=== PATIENT | male | born 1960 | race Caucasian/White ===

== ENCOUNTER 2020-05-23 12:36 | Emergency (ER) | payer OTHER ==
[2020-05-23] MEDS ORDERED: Zofran 4 MG/2 ML VIAL ONE (13:27)
[2020-05-23] MEDS ORDERED: SUBLIMAZE 100 MCG/2 ML ONE (13:28)
[2020-05-23] MEDS: SUBLIMAZE 100 MCG/2 ML IV ONE (13:30)
[2020-05-23] MEDS: Zofran 4 MG/2 ML VIAL IV ONE (13:30)
--- NOTE | 2020-05-23 13:57 | ERPHSYRPT ---
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 Pain is 5/10 and worse w movement/deep breaths. He denies SINGLETON/LOC/T&L-spine pain/UE pain/LE pain/hip pain. Pt denies any CP/dyspnea/focal weaknes before the fall. Occurred: other (6hrs) Reason for Fall: lost balance, slipped Injuries/Pain Location: chest (R thorax) Loss of Consciousness: no loss of consciousness Quality: sharpness Severity of Pain-Max: moderate Severity of Pain-Current: moderate Modifying Factors: Improves With: nothing Associated Symptoms (Fall): No abdominal pain, No back pain, No confusion, No dizziness, No extremity injury, No headache, No lightheadedness, No muscle spasms, No nausea, No neck pain, No ringing in ears, No seizures, No shortness of breath, No slurred speech, No trouble walking, No vomiting, No vision changes Allergies/Adverse Reactions: No Known Drug Allergies Allergy (Verified 05/23/20 12:50) Home Medications: Glyburide Micronized 3 mg [Glynase 3 MG] 6 mg PO BID 04/17/14 [History] Metformin HCl 850 mg [Glucophage 850 MG] 1,000 mg PO BID 04/17/14 [History] Sitagliptin Phosphate [Januvia] 50 mg PO DAILY 12/06/14 [History] Omeprazole [Prilosec] 40 mg PO BID 11/23/15 [History] Tamsulosin HCl [Flomax] 0.4 mg PO DAILY 11/23/15 [History] Doxycycline Hyclate 100 mg [Vibramycin 100 MG] 100 mg PO BID 05/23/20 [History] Ferrous Sulfate 325 mg [Feosol 325 mg] 325 mg PO BID 05/23/20 [History] Lisinopril 5 mg [Zestril 5 MG] 5 mg PO DAILY 05/23/20 [History] Saxagliptin HCl [Onglyza] 2.5 mg PO DAILY 05/23/20 [History] Hx Tetanus, Diphtheria Vaccination/Date Given: No Hx Influenza Vaccination/Date Given: (fall 2012) Hx Pneumococcal Vaccination/Date Given: No Travel Risk - International Travel Have you traveled outside of the country in past 3 weeks: No - Coronavirus Screening Are you exhibiting any of the following symptoms?: No Close contact with a COVID-19 positive Pt in past 14-21 Days: No - Review of Systems Constitutional: No Symptoms Eyes: No Symptoms Ears, Nose, & Throat: No Symptoms Respiratory: No Symptoms, Stridor Abdominal/Gastrointestinal: No Symptoms Genitourinary Symptoms: No Symptoms Skin: No Symptoms Neurological: No Symptoms Psychological: No Symptoms Endocrine: No Symptoms Hematologic/Lymphatic: No Symptoms Immunological/Allergic: No Symptoms - Past Medical History Pertinent Past Medical History: Yes Neurological History: No Pertinent History ENT History: No Pertinent History Cardiac History: No Pertinent History Respiratory History: No Pertinent History Endocrine Medical History: Diabetes Type II, Other Musculoskeletal History: Fractures GI Medical History: Cirrhosis, Hepatitis History: No Pertinent History Psycho-Social History: No Pertinent History Male Reproductive Disorders: No Pertinent History Other Medical History: "hole in a kidney", Hepititis C but has had vaccine. fell and broke back that didn't require surgery - Past Surgical History Past Surgical History: Yes Neuro Surgical History: No Pertinent History Cardiac: No Pertinent History Respiratory: No Pertinent History Gastrointestinal: No Pertinent History Genitourinary: No Pertinent History Musculoskeletal: No Pertinent History Male Surgical History: No Pertinent History Other Surgical History: liver biopsy - Social History Smoking Status: Never smoker Exposure to second hand smoke: No Drug Use: none Patient Lives Alone: No Significant Family History: no pertinent family hx - Nursing Vital Signs Nursing Vital Signs: Initial Vital Signs Temperature 98.3 F 05/23/20 12:40 Pulse Rate 73 05/23/20 12:40 Blood Pressure 143/89 05/23/20 12:40 O2 Sat by Pulse Oximetry 99 05/23/20 12:40 Pain Scale Pain Intensity 8 - [place] Coma Score Best Eye Response ([place]): (4) open spontaneously Best Verbal Response ([place]): (5) oriented Best Motor Response ([place]): (6) obeys commands J[place] Total: 15 - Physical Exam General Appearance: no apparent distress (In pain) Head Injury: no evidence of injury Eye Exam: PERRL/EOMI, eyes nml inspection ENT Exam: airway nml, No evidence of ENT injury Neck Exam: supple (C-spine NTTP), trachea midline, full range of motion, normal inspection Respiratory/Chest Exam: normal breath sounds, No respiratory distress (R thorax ttp) Cardiovascular Exam: normal heart sounds, regular rate/rhythm, normal peripheral pulses, No murmur Gastrointestinal Exam: soft, normal bowel sounds, No tenderness Back Exam: normal inspection (No T or L spine TTP) Extremity Exam: normal inspection, normal range of motion, pelvis stable Neurologic Exam: alert, oriented x 3, cooperative, staff engineer II-XII nml as tested, normal mood/affect, nml cerebellar function, nml station & gait, sensation nml, No motor deficits, No sensory deficit Skin Exam: normal color, warm, dry SpO2 Interpretation: normal SpO2: 99 O2 Delivery: Room Air Ordered Tests: Active Orders 24 hr Category Date Time Status EKG-ER Only STAT Care 05/23/20 13:14 Completed IV Insertion STAT Care 05/23/20 13:04 Completed CHEST WITH CONTRAST [CT] Stat Exams 05/23/20 14:32 Completed BMP Stat Lab 05/23/20 13:04 Completed Medication Summary Discontinued Medications Generic Name Dose Route Start Last Admin Trade Name Tobyq PRN Reason Stop Dose Admin Fentanyl Citrate 100 mcg 05/23/20 13:05 05/23/20 13:30 Sublimaze 100 Mcg/2 Ml IV 05/23/20 13:06 100 mcg STAT ONE Administration Fentanyl Citrate Confirm 05/23/20 13:28 Sublimaze 100 Mcg/2 Ml Administered 05/23/20 13:29 Dose 100 mcg .ROUTE .STK-MED ONE Hydromorphone HCl 1 mg 05/23/20 15:08 05/23/20 15:10 Hydromorphone 1 Mg/Ml Injection IV 05/23/20 15:09 1 mg STAT ONE Administration Hydromorphone HCl Confirm 05/23/20 15:09 Hydromorphone 1 Mg/Ml Injection Administered 05/23/20 15:10 Dose 1 mg .ROUTE .STK-MED ONE Ondansetron HCl 4 mg 05/23/20 13:06 05/23/20 13:30 Zofran 4 Mg/2 Ml Vial IV 05/23/20 13:07 4 mg STAT ONE Administration Ondansetron HCl Confirm 05/23/20 13:27 Zofran 4 Mg/2 Ml Vial Administered 05/23/20 13:28 Dose 4 mg .ROUTE .STK-MED ONE Lab/Rad Data: Laboratory Result Diagrams 05/23/20 13:04 Laboratory Results 05/23/20 Range/Units 13:04 Sodium 139 (137-145) mmol/L Potassium 5.0 (3.5-5.1) mmol/L Chloride 110 H (98-107) mmol/L Carbon Dioxide 24 (22-30) mmol/L Anion Gap 9.8 (5-15) MEQ/L BUN 17 (9-20) mg/dL Creatinine 1.28 H (0.66-1.25) mg/dL Estimated GFR > 60.0 ML/MIN Glucose 158 H (74-106) mg/dL Calcium 9.8 (8.4-10.2) mg/dL - Progress Progress: improved Progress Note: 05/23/20 15:09 Pain improved w 100umg IV Fentanyl/4mg IV Zofran 1mg IV dilaudid before discharge Counseled pt/family regarding: diagnosis, need for follow-up, rad results - Departure Departure Disposition: Home Clinical Impression: Rib fracture Condition: Stable Critical Care Time: No Referrals: IAN CHRISTENSEN [Primary Care Provider] - Instructions: Rib Fracture (DC) Additional Instructions: Follow up with family MD or company MD Pain meds as needed Return to ER for increasing pain/shortness of breath/temperature greater than 100.5 Prescriptions: Hydrocodone Bit/Acetaminophen [[place] 10-325 Tablet] 1 each PO Q4H PRN PRN #10 tablet PRN Reason: Pain
[2020-05-23 14:08] LABS: ANION GAP 9.8 MEQ/L (5-15); BLOOD UREA NITROGEN 17 mg/dL (9-20); CHLORIDE 110 mmol/L (98-107); Calcium 9.8 mg/dL (8.4-10.2); Carbon Dioxide 24 mmol/L (22-30); Creatinine 1 1.28 mg/dL (0.66-1.25); EST GLOMERULAR FILTRATION RATE > 60.0 ML/MIN; Glucose 158 mg/dL (74-106); SODIUM 139 mmol/L (137-145)
--- NOTE | 2020-05-23 15:03 | XRAY ---
Indication: Right rib pain following fall. Multiple contiguous axial images obtained through the chest using 80 cc Isovue 370 contrast. Comparison: None Lungs inflated with minimal bilateral dependent atelectasis and small right lower lobe calcified granuloma. No suspicious pulmonary mass, infiltrate, or effusion. Heart is not enlarged. Aorta is normal in course and caliber. Small right hilar calcified node. No pathologic mediastinal/hilar lymphadenopathy. Mid to distal esophagus demonstrates moderate circumferential wall thickening favoring esophagitis. Bony thorax demonstrates acute cortical fracture anterior right 6 rib. Elsewhere mild osteopenia and mild/moderate degenerative changes throughout the visualized spine. Remote appearing superior endplate fractures of T12/L2 with 25-50% height loss. Old right 8/9 anterior rib fractures. Limited upper abdomen demonstrates markedly cirrhotic liver and 17.4 cm splenomegaly. Impression: 1. Mid to distal esophageal circumferential wall thickening favoring esophagitis. 2. Right 6 rib cortical fracture. 3. Osteopenia, remote T12/L2 endplate fractures, and remote right 8/9 rib fractures. 4. Incidental cirrhosis, splenomegaly, and old granulomatous disease
[2020-05-23] MEDS ORDERED: Hydromorphone 1 mg/ml Injection ONE (15:09)
[2020-05-23] MEDS: Hydromorphone 1 mg/ml Injection IV ONE (15:10)
[2020-05-23 15:26] VITALS: BP 122/78; PULSE 66
[2020-05-23 17:55] VITALS: O2SAT 99
== END 2020-05-23 15:43 | disposition home or self-care (01) ==
LOC: ED 12:36
DX: S22.39XA Fracture of one rib, unspecified side, initial encounter for closed fracture (principal); W01.198A Fall on same level from slipping, tripping and stumbling with subsequent striking against other object, initial encounter; Y92.89 Other specified places as the place of occurrence of the external cause; Y93.89 Activity, other specified; Z79.899 Other long term (current) drug therapy; E11.9 Type 2 diabetes mellitus without complications; Z79.4 Long term (current) use of insulin; K74.60 Unspecified cirrhosis of liver; B19.20 Unspecified viral hepatitis C without hepatic coma
CPT/HCPCS: 36000; 36415; 71260; 80048; 93005; 96374; 96375; 99284; J1170; J2405; J3010

== ENCOUNTER 2021-06-02 17:03 | Emergency (ER) | payer BC ==
[2021-06-02] MEDS ORDERED: ROCEPHIN 1 Gm-D5w 50 ml Bag** 1 G/50 ML IVPB IV STA (17:44)
[2021-06-02] MEDS ORDERED: CLINDAMYCIN-D5W 900 MG/50 ML*** 900 MG/50 ML BAG IV STA (17:44)
[2021-06-02] MEDS ORDERED: CLINDAMYCIN-D5W 900 MG/50 ML*** 900 MG/50 ML BAG IV ONE (18:02)
[2021-06-02] MEDS ORDERED: ROCEPHIN 1 Gm-D5w 50 ml Bag** 1 G/50 ML IVPB IV ONE (18:02)
--- NOTE | 2021-06-02 18:27 | ERPHSYRPT ---
- History of Present Illness Time Seen by Provider: 06/02/21 17:40 Source: patient Exam Limitations: no limitations Patient Subjective Stated Complaint: pt here infection to left index finger, states he has a splinter in finger for 2 weeks Triage Nursing Assessment: pt alert, resp easy, skin w/d/p. face mask in place, has swelling reddness, drainage to left index finger Physician History: Patient is a 60-year-old white male who had a splinter lodged in his left index finger approximately 2 2 and half weeks ago. He thought that he got it removed however he has had increased swelling pain and drainage from the finger which seems to localize over the M PJ. He has had no antibiotics and has not had a medical treatment. Occurred: days ago (14) Method of Injury: incised Quality: constant Severity of Pain-Max: moderate Severity of Pain-Current: moderate Extremities Pain Location: 2nd finger: left (Swelling discoloration purulent discharge) Modifying Factors: Improves With: movement Associated Symptoms: none Allergies/Adverse Reactions: No Known Drug Allergies Allergy (Verified 06/02/21 17:20) Home Medications: Glyburide Micronized 3 mg [Glynase 3 MG] 6 mg PO BID 04/17/14 [History] Metformin HCl 850 mg [Glucophage 850 MG] 1,000 mg PO BID 04/17/14 [History] Sitagliptin Phosphate [Januvia] 50 mg PO DAILY 12/06/14 [History] Omeprazole [Prilosec] 40 mg PO BID 11/23/15 [History] Tamsulosin HCl [Flomax] 0.4 mg PO DAILY 11/23/15 [History] Doxycycline Hyclate 100 mg [Vibramycin 100 MG] 100 mg PO BID 05/23/20 [History] Ferrous Sulfate 325 mg [Feosol 325 mg] 325 mg PO BID 05/23/20 [History] Lisinopril 5 mg [Zestril 5 MG] 5 mg PO DAILY 05/23/20 [History] Saxagliptin HCl [Onglyza] 2.5 mg PO DAILY 05/23/20 [History] Hx Tetanus, Diphtheria Vaccination/Date Given: No Hx Influenza Vaccination/Date Given: No (fall 2012) Hx Pneumococcal Vaccination/Date Given: No Immunizations Up to Date: Yes Travel Risk - International Travel Have you traveled outside of the country in past 3 weeks: No - Coronavirus Screening Are you exhibiting any of the following symptoms?: No Close contact with a COVID-19 positive Pt in past 14-21 Days: No - Vaccine Status Have you recieved a Covid-19 vaccination: No - Review of Systems Constitutional: No Fever, No Chills Eyes: No Symptoms Ears, Nose, & Throat: No Symptoms Respiratory: No Cough, No Dyspnea Cardiac: No Chest Pain, No Edema, No Syncope Abdominal/Gastrointestinal: No Abdominal Pain, No Nausea, No Vomiting, No Diarrhea Genitourinary Symptoms: No Dysuria Musculoskeletal: Joint Redness, Joint Pain, Joint Swelling, No Back Pain, No Neck Pain Skin: No Rash Neurological: No Dizziness, No Focal Weakness, No Sensory Changes Psychological: No Symptoms Endocrine: No Symptoms All Other Systems: Reviewed and Negative - Past Medical History Pertinent Past Medical History: Yes Neurological History: No Pertinent History ENT History: No Pertinent History Cardiac History: No Pertinent History Respiratory History: No Pertinent History Endocrine Medical History: Diabetes Type II, Other Musculoskeletal History: Fractures GI Medical History: Cirrhosis, Hepatitis History: No Pertinent History Psycho-Social History: No Pertinent History Male Reproductive Disorders: No Pertinent History Other Medical History: "hole in a kidney", Hepititis C but has had vaccine. fell and broke back that didn't require surgery - Past Surgical History Past Surgical History: Yes Neuro Surgical History: No Pertinent History Cardiac: No Pertinent History Respiratory: No Pertinent History Gastrointestinal: No Pertinent History Genitourinary: No Pertinent History Musculoskeletal: No Pertinent History Male Surgical History: No Pertinent History Other Surgical History: liver biopsy - Social History Smoking Status: Never smoker Exposure to second hand smoke: No Drug Use: none Patient Lives Alone: No Significant Family History: no pertinent family hx - Nursing Vital Signs Nursing Vital Signs: Initial Vital Signs Temperature 98.8 F 06/02/21 17:19 Pulse Rate 94 H 06/02/21 17:19 Respiratory Rate 18 06/02/21 17:19 Blood Pressure 139/73 06/02/21 17:19 O2 Sat by Pulse Oximetry 98 06/02/21 17:19 Pain Scale Pain Intensity 7 - Physical Exam General Appearance: mild distress, alert Eyes, Ears, Nose, Throat Exam: moist mucous membranes Neck Exam: non-tender, supple Cardiovascular/Respiratory Exam: chest non-tender, normal breath sounds, regular rate/rhythm, no respiratory distress Abdominal Exam: non-tender, No guarding Back Exam: normal inspection, No vertebral tenderness Shoulder Exam: normal inspection, non-tender Elbow/Forearm Exam: normal inspection, non-tender Wrist Exam: normal inspection, non-tender Hand Exam: bone tenderness (Left index finger tenderness), infection, limited ROM, soft tissue tenderness (Limited range of motion soft tissue tenderness), stiffness, swelling (Stiffness and swelling) Neuro/Tendon Exam: normal sensation, normal motor functions Mental Status Exam: alert, oriented x 3, cooperative Skin Exam: normal color, warm, dry SpO2 Interpretation: normal SpO2: 98 O2 Delivery: Room Air - Course Nursing assessment & vital signs reviewed: Yes - Radiology Exams Hand X-ray Interpretation: Interpreted by me, Negative (Negative for any foreign bodies near the affected digit no fracture no gas noted in the soft tissues) Ordered Tests: Active Orders 24 hr Category Date Time Status HAND (MINIMUM 3 VIEWS) Stat Exams 06/02/21 17:43 Taken Medication Summary Discontinued Medications Generic Name Dose Route Start Last Admin Trade Name Tobyq PRN Reason Stop Dose Admin Ceftriaxone Sodium/Dextrose 1 g in 50 mls @ 100 mls/hr 06/02/21 17:44 06/02/21 18:58 Rocephin 1 Gm-D5w 50 Ml Bag IV 06/02/21 18:13 Infused STAT STA Infusion Clindamycin HCl/Dextrose 900 mg in 50 mls @ 100 mls/hr 06/02/21 17:44 06/02/21 18:57 Clindamycin-D5w 900 Mg/50 Ml IV 06/02/21 18:13 Infused STAT STA Infusion Clindamycin HCl/Dextrose Confirm 06/02/21 18:02 Clindamycin-D5w 900 Mg/50 Ml Administered 06/02/21 18:03 Dose 900 mg in 50 mls @ ud IV .STK-MED ONE Ceftriaxone Sodium/Dextrose Confirm 06/02/21 18:02 Rocephin 1 Gm-D5w 50 Ml Bag Administered 06/02/21 18:03 Dose 1 g in 50 mls @ ud IV .STK-MED ONE - Progress Progress: improved Discussed with : Other (Dr. Toribio hand surgeon in [place] was consulted he will see the patient Saturday morning in the office) - Departure Departure Disposition: Home Clinical Impression: Tenosynovitis of finger Condition: Stable Critical Care Time: No Referrals: IAN CHRISTENSEN [Primary Care Provider] - Instructions: Tenosynovitis (DC) Prescriptions: Cefdinir 300 mg PO BID 7 Days #14 cap clindamycin HCL [Cleocin HCl] 300 mg PO TID 7 Days #21
[2021-06-02 19:28] VITALS: BP 117/73; PULSE 91; O2SAT 100
--- NOTE | 2021-06-02 22:16 | XRAY ---
Indication: Splinter in 2nd finger. Comparison: None 3 view left hand demonstrates 2 mm soft tissue foreign body distal 4th finger, mild osteopenia, and old distal radius fracture. No other bony, articular, or soft tissue abnormalities.
== END 2021-06-02 19:44 | disposition home or self-care (01) ==
LOC: ED 17:03
DX: S63.651A Sprain of metacarpophalangeal joint of left index finger, initial encounter (principal)
CPT/HCPCS: 36000; 73130; 96365; 96368; 99284; J0696

== ENCOUNTER 2022-02-23 10:15 | Emergency (ER) | payer OTHER ==
[2022-02-23 10:31] VITALS: BP 134/84
[2022-02-23] MEDS ORDERED: Flagyl 500 MG PO ONE (11:09)
[2022-02-23] MEDS ORDERED: OXYCODONE-ACETAMINOPHEN 10-325 PO STA (11:09)
[2022-02-23] MEDS ORDERED: Vibramycin 100 MG PO ONE (11:09)
[2022-02-23] MEDS ORDERED: Vibramycin 100 MG ONE (11:17)
[2022-02-23] MEDS ORDERED: Flagyl 500 MG ONE (11:17)
[2022-02-23] MEDS ORDERED: OXYCODONE-ACETAMINOPHEN 10-325 ONE (11:17)
--- NOTE | 2022-02-23 11:17 | ERPHSYRPT ---
- History of Present Illness Time Seen by Provider: 02/23/22 10:30 Source: patient, family Exam Limitations: no limitations Patient Subjective Stated Complaint: Groin pain/swelling Triage Nursing Assessment: Patient ambulated back to ED and transferred self to bed. Patient A+O X 3. Patient's skin pink, warm and dry. Patient complains of pain to left scrotum. Patient has abscess noted to left scrotum. Patient complain of pain 06/04. 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 Physician History: This is a 61-year-old diabetic white male patient of Dr. 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 He denies fevers. He states he is not had anything like this in the past. Patient has a history of diabetes, hypertension, gastroesophageal reflux disease, and prostate issues. This was the first day he could have the site evaluated. There has been some drainage from the site. Timing/Duration: day(s) (3) Quality: painful Severity: moderate (When palpated) Location: genitalia (Left scrotal region) Possible Causes: other (Abscess) Associated Symptoms: denies symptoms Allergies/Adverse Reactions: No Known Drug Allergies Allergy (Verified 02/23/22 10:20) Home Medications: Glyburide Micronized [Glynase 3 MG] 6 mg PO BID 04/17/14 [History] Metformin HCl 850 mg [Glucophage 850 MG] 1,000 mg PO BID 04/17/14 [History] Sitagliptin Phosphate [Januvia] 50 mg PO DAILY 12/06/14 [History] Omeprazole [Prilosec] 40 mg PO BID 11/23/15 [History] Tamsulosin HCl [Flomax] 0.4 mg PO DAILY 11/23/15 [History] Doxycycline Hyclate 100 mg [Vibramycin 100 MG] 100 mg PO BID 05/23/20 [History] Ferrous Sulfate 325 mg [Feosol 325 mg] 325 mg PO BID 05/23/20 [History] Lisinopril 5 mg [Zestril 5 MG] 5 mg PO DAILY 05/23/20 [History] Saxagliptin HCl [Onglyza] 2.5 mg PO DAILY 05/23/20 [History] Hx Tetanus, Diphtheria Vaccination/Date Given: No Hx Influenza Vaccination/Date Given: No Hx Pneumococcal Vaccination/Date Given: No Immunizations Up to Date: Yes Travel Risk - International Travel Have you traveled outside of the country in past 3 weeks: No - Coronavirus Screening Are you exhibiting any of the following symptoms?: No Close contact with a COVID-19 positive Pt in past 14-21 Days: No - Vaccine Status Have you recieved a Covid-19 vaccination: No - Review of Systems Constitutional: No Symptoms Eyes: No Symptoms Ears, Nose, & Throat: No Symptoms Respiratory: No Symptoms Cardiac: No Symptoms Abdominal/Gastrointestinal: No Symptoms Genitourinary Symptoms: Other (Left scrotal abscess) Musculoskeletal: No Symptoms Skin: Other (Left scrotal abscess) Neurological: No Symptoms Psychological: No Symptoms Endocrine: No Symptoms Hematologic/Lymphatic: No Symptoms Immunological/Allergic: No Symptoms All Other Systems: Reviewed and Negative - Past Medical History Pertinent Past Medical History: Yes Neurological History: No Pertinent History ENT History: No Pertinent History Cardiac History: No Pertinent History Respiratory History: No Pertinent History Endocrine Medical History: Diabetes Type II Musculoskeletal History: Fractures GI Medical History: Cirrhosis, Hepatitis History: No Pertinent History Psycho-Social History: No Pertinent History Male Reproductive Disorders: No Pertinent History Other Medical History: "hole in a kidney", Hepititis C but has had vaccine. fell and broke back that didn't require surgery - Past Surgical History Past Surgical History: Yes Neuro Surgical History: No Pertinent History Cardiac: No Pertinent History Respiratory: No Pertinent History Gastrointestinal: No Pertinent History Genitourinary: No Pertinent History Musculoskeletal: No Pertinent History Male Surgical History: No Pertinent History Other Surgical History: liver biopsy - Social History Smoking Status: Never smoker Exposure to second hand smoke: No Drug Use: none Patient Lives Alone: No Significant Family History: no pertinent family hx - Nursing Vital Signs Nursing Vital Signs: Initial Vital Signs Temperature 98.0 F 02/23/22 10:21 Pulse Rate 92 H 02/23/22 10:21 Respiratory Rate 18 02/23/22 10:21 Blood Pressure 134/84 02/23/22 10:21 O2 Sat by Pulse Oximetry 97 02/23/22 10:21 Pain Scale Pain Intensity 10 - Physical Exam General Appearance: no apparent distress, alert, anxiety, obese Eye Exam: PERRL/EOMI, eyes nml inspection Ears, Nose, Throat Exam: normal ENT inspection, moist mucous membranes Neck Exam: normal inspection, non-tender, supple, full range of motion Respiratory Exam: airway intact, No chest tenderness, No respiratory distress Gastrointestinal/Abdomen Exam: No tenderness Male Genitalia Exam: other (Abscess measuring approximately 2 cm in its axial dimension and 1 cm in its transverse direction. There is a pinpoint opening with drainage present. This is an abscess. 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 There was pus exuding from the site as well as pus that was expressible. Culture was obtained and sent to lab. I continue to express as much pus out as I could until there was no more pus present. There is still indurated tissue present. The area was then cleaned dried and a bandage was placed loosely overlying this open site. Patient Toller procedure well and there were no complications. - Course Nursing assessment & vital signs reviewed: Yes Ordered Tests: Medication Summary Generic Name Dose Route Start Last Admin Trade Name Freq PRN Reason Stop Dose Admin Doxycycline Hyclate 100 mg 02/23/22 11:09 Doxycycline Hyclate 100 Mg Tablet PO 02/23/22 11:10 STAT ONE Metronidazole 500 mg 02/23/22 11:09 Metronidazole 500 Mg Tablet PO 02/23/22 11:10 STAT ONE Oxycodone/Acetaminophen 1 tab 02/23/22 11:09 Oxycodone / [place] 10/325 Mg 1 Tablet PO 02/23/22 11:10 STAT STA - Progress Progress: improved, pain not gone completely Counseled pt/family regarding: diagnosis, need for follow-up - Departure Departure Disposition: Home Clinical Impression: Abscess of scrotal wall Condition: Stable Critical Care Time: No Referrals: IAN LUTZ [Primary Care Provider] - Follow up/PCP as directed Additional Instructions: Keep the area clean and dry. Do not use ointments to the site. Sitz bath with warm soapy water or warm [place] salt water at least twice a day. Keep the wound open and express out any fluid at each sitz bath session. May cover the incision site with a peripad as needed. Return to the emergency department if symptoms worsen. Follow-up with your primary care physician next week for reevaluation. Take your medication as prescribed. Prescriptions: Oxycodone HCl/Acetaminophen [Percocet 5-325 mg Tablet] 1 each PO Q8H PRN PRN #8 tablet MDD 3 PRN Reason: Moderate To Severe Pain Metronidazole 500 mg [Flagyl 500 MG] 500 mg PO TID #21 tablet Doxycycline Hyclate 100 mg [Vibramycin 100 MG] 100 mg PO BID #14 tab
[2022-02-23 11:51] VITALS: PULSE 80; O2SAT 96
== END 2022-02-23 11:51 | disposition home or self-care (01) ==
LOC: ED 10:15
DX: N49.2 Inflammatory disorders of scrotum (principal); N50.82 Scrotal pain; E11.9 Type 2 diabetes mellitus without complications; I10 Essential (primary) hypertension; Z79.84 Long term (current) use of oral hypoglycemic drugs; Z79.891 Long term (current) use of opiate analgesic; Z79.899 Other long term (current) drug therapy; Z28.310 Unvaccinated for COVID-19
CPT/HCPCS: 55100; 87070; 87077; 87186; 99283; A9270-GY

== ENCOUNTER 2022-05-21 09:39 | Inpatient (IN) | payer OTHER ==
--- NOTE | 2022-05-21 09:59 | ERPHSYRPT ---
- History of Present Illness Time Seen by Provider: 05/21/22 09:58 Source: patient Exam Limitations: no limitations Physician History: This is a diabetic 61-year-old white male patient of Dr. Fleming who sent this patient to the emergency department after persistent redness swelling and warmth of his right lower extremity. Symptoms been present for approximately 1 week. Patient has been followed by Dr. Fleming is closely in his office and on 05/18 and 05/19 received injection double antibiotics and also, patient has been taking Bactrim DS orally. Despite outpatient therapy, the patient's symptoms have worsened and therefore patient was sent to the emergency department for further evaluation management and admission into the hospital. Patient underwent a right lower extremity venous Doppler on 05/17/2022 and this was negative for deep venous thrombosis. Patient has a history of cirrhosis, hepatitis C, hypertension and gastroesophageal reflux disease. Timing/Duration: week(s) (1) Quality: painful Severity: moderate Location: extremities (Right lower extremity below the knee) Possible Causes: other Associated Symptoms: denies symptoms Allergies/Adverse Reactions: No Known Drug Allergies Allergy (Verified 02/23/22 10:20) Home Medications: Insulin Glargine,Hum.rec.anlog [Basaglar Kwikpen U-100] 40 unit SQ DAILY 05/21/22 [History] Insulin Lispro [Humalog] 20 unit SQ AC 05/21/22 [History] Hx Tetanus, Diphtheria Vaccination/Date Given: No Hx Influenza Vaccination/Date Given: No Hx Pneumococcal Vaccination/Date Given: No Travel Risk - International Travel Have you traveled outside of the country in past 3 weeks: No - Coronavirus Screening Are you exhibiting any of the following symptoms?: No Close contact with a COVID-19 positive Pt in past 14-21 Days: No - Vaccine Status Have you recieved a Covid-19 vaccination: No - Review of Systems Constitutional: No Symptoms, No Fever Eyes: No Symptoms Ears, Nose, & Throat: No Symptoms Respiratory: No Symptoms Cardiac: No Symptoms Abdominal/Gastrointestinal: No Symptoms Genitourinary Symptoms: No Symptoms Musculoskeletal: Other (Tender below right knee) Skin: Cellulitis (Tender below right knee) Neurological: No Symptoms Psychological: No Symptoms Endocrine: No Symptoms Hematologic/Lymphatic: No Symptoms Immunological/Allergic: No Symptoms All Other Systems: Reviewed and Negative - Past Medical History Pertinent Past Medical History: Yes Neurological History: No Pertinent History ENT History: No Pertinent History Cardiac History: No Pertinent History Respiratory History: No Pertinent History Endocrine Medical History: Diabetes Type II Musculoskeletal History: Fractures GI Medical History: Cirrhosis, Hepatitis History: No Pertinent History Psycho-Social History: No Pertinent History Male Reproductive Disorders: No Pertinent History Other Medical History: "hole in a kidney", Hepititis C but has had vaccine. fell and broke back that didn't require surgery - Past Surgical History Past Surgical History: Yes Neuro Surgical History: No Pertinent History Cardiac: No Pertinent History Respiratory: No Pertinent History Gastrointestinal: No Pertinent History Genitourinary: No Pertinent History Musculoskeletal: No Pertinent History Male Surgical History: No Pertinent History Other Surgical History: liver biopsy - Social History Smoking Status: Never smoker Exposure to second hand smoke: No Drug Use: none Patient Lives Alone: No Significant Family History: no pertinent family hx - Nursing Vital Signs Nursing Vital Signs: Initial Vital Signs Temperature 97.4 F 05/21/22 09:50 Pulse Rate 81 05/21/22 09:50 Respiratory Rate 18 05/21/22 09:50 Blood Pressure 120/73 05/21/22 09:50 O2 Sat by Pulse Oximetry 99 05/21/22 09:50 Pain Scale Pain Intensity 0 - Physical Exam General Appearance: no apparent distress, alert Eye Exam: PERRL/EOMI, eyes nml inspection Ears, Nose, Throat Exam: normal ENT inspection, moist mucous membranes Neck Exam: normal inspection, non-tender, supple, full range of motion Respiratory Exam: normal breath sounds, lungs clear, airway intact, No chest tenderness, No respiratory distress Cardiovascular Exam: regular rate/rhythm, normal heart sounds, normal peripheral pulses Gastrointestinal/Abdomen Exam: soft, normal bowel sounds, No tenderness Rectal Exam: not done Back Exam: normal inspection, normal range of motion, No CVA tenderness, No vertebral tenderness Extremity Exam: normal inspection, normal range of motion, pelvis stable, tenderness (Below the right knee tender swelling areas around the open chronic venous stasis wounds that have granulation tissue present. There is pain in these areas and in the calf area. Patient has bilateral lower extremity chronic venous stasis disease.) Neurologic Exam: alert, oriented x 3, cooperative, i o psychologist II-XII nml as tested, normal mood/affect, nml cerebellar function, nml station & gait, sensation nml Skin Exam: other (Chronic venous stasis disease bilateral lower extremities with ulcerations in the right lower extremity and cellulitis in the right lower extremity below the knee) Lymphatic Exam: No adenopathy SpO2 Interpretation: normal SpO2: 99 O2 Delivery: Room Air Ordered Tests: Active Orders 24 hr Category Date Time Status IV Insertion STAT Care 05/21/22 10:12 Active Wound Care STAT Care 05/21/22 10:13 Active BLOOD CULTURE Stat Lab 05/21/22 10:10 Received CBC W DIFF Stat Lab 05/21/22 10:10 Completed CMP Stat Lab 05/21/22 10:10 Completed CULTURE,WOUND Stat Lab 05/21/22 10:18 Received Lactic Acid Stat Lab 05/21/22 10:42 Completed Transfer Order Routine Transfer 05/21/22 Ordered Lab/Rad Data: Laboratory Result Diagrams 05/21/22 10:10 05/21/22 10:10 Laboratory Results 05/21/22 05/21/22 05/21/22 Range/Units 10:42 10:35 10:10 WBC (4.0-10.5) x10^3/uL RBC (4.1-5.6) x10^6/uL Hgb (12.5-18.0) g/dL Hct (42-50) % MCV (78-100) fL MCH (26-32) pg MCHC (32-36) g/dL RDW (11.5-14.0) % Plt Count (150-450) x10^3/uL MPV (7.5-11.0) fL Gran % (36.0-66.0) % Immature Gran % (Auto) (0.00-0.4) % Nucleat RBC Rel Count (0.00-0.1) % Eos # (Auto) (0-0.5) x10^3/uL Immature Gran # (Auto) (0.00-0.03) x10^3u/L Absolute Lymphs (auto) (1.0-4.6) x10^3/uL Absolute Monos (auto) (0.0-1.3) x10^3/uL Absolute Nucleated RBC (0.00-0.01) x10^3u/L Lymphocytes % (24.0-44.0) % Monocytes % (0.0-12.0) % Eosinophils % (0.00-5.0) % Basophils % (0.0-0.4) % Absolute Granulocytes (1.4-6.9) x10^3/uL Basophils # (0-0.4) x10^3/uL Sodium 138 (137-145) mmol/L Potassium 4.5 (3.5-5.1) mmol/L Chloride 110 H (98-107) mmol/L Carbon Dioxide 18 L (22-30) mmol/L Anion Gap 14.9 (5-15) MEQ/L BUN 22 H (9-20) mg/dL Creatinine 2.26 H (0.66-1.25) mg/dL Estimated GFR 31.4 ML/MIN Glucose 174 H (74-106) mg/dL Lactic Acid 1.8 (0.4-2.0) Calcium 8.4 (8.4-10.2) mg/dL Total Bilirubin 1.20 (0.2-1.3) mg/dL AST 47 (17-59) U/L ALT 30 (0-50) U/L Alkaline Phosphatase 322 H (38-126) U/L Serum Total Protein 7.5 (6.3-8.2) g/dL Albumin 3.1 L (3.5-5.0) g/dL Influenza Type A Ag NEGATIVE (NEGATIVE) Influenza Type B Ag NEGATIVE (NEGATIVE) RSV (PCR) NEGATIVE (Negative) SARS-CoV-2 (PCR) NEGATIVE (NEGATIVE) 05/21/22 Range/Units 10:10 WBC 5.6 (4.0-10.5) x10^3/uL RBC 3.57 L (4.1-5.6) x10^6/uL Hgb 10.8 L (12.5-18.0) g/dL Hct 33.6 L (42-50) % MCV 94.1 (78-100) fL MCH 30.3 (26-32) pg MCHC 32.1 (32-36) g/dL RDW 13.0 (11.5-14.0) % Plt Count 102 L (150-450) x10^3/uL MPV 10.9 (7.5-11.0) fL Gran % 74.9 H (36.0-66.0) % Immature Gran % (Auto) 0.2 (0.00-0.4) % Nucleat RBC Rel Count 0.0 (0.00-0.1) % Eos # (Auto) 0.09 (0-0.5) x10^3/uL Immature Gran # (Auto) 0.01 (0.00-0.03) x10^3u/L Absolute Lymphs (auto) 0.66 L (1.0-4.6) x10^3/uL Absolute Monos (auto) 0.62 (0.0-1.3) x10^3/uL Absolute Nucleated RBC 0.00 (0.00-0.01) x10^3u/L Lymphocytes % 11.8 L (24.0-44.0) % Monocytes % 11.1 (0.0-12.0) % Eosinophils % 1.6 (0.00-5.0) % Basophils % 0.4 (0.0-0.4) % Absolute Granulocytes 4.19 (1.4-6.9) x10^3/uL Basophils # 0.02 (0-0.4) x10^3/uL Sodium (137-145) mmol/L Potassium (3.5-5.1) mmol/L Chloride (98-107) mmol/L Carbon Dioxide (22-30) mmol/L Anion Gap (5-15) MEQ/L BUN (9-20) mg/dL Creatinine (0.66-1.25) mg/dL Estimated GFR ML/MIN Glucose (74-106) mg/dL Lactic Acid (0.4-2.0) Calcium (8.4-10.2) mg/dL Total Bilirubin (0.2-1.3) mg/dL AST (17-59) U/L ALT (0-50) U/L Alkaline Phosphatase (38-126) U/L Serum Total Protein (6.3-8.2) g/dL Albumin (3.5-5.0) g/dL Influenza Type A Ag (NEGATIVE) Influenza Type B Ag (NEGATIVE) RSV (PCR) (Negative) SARS-CoV-2 (PCR) (NEGATIVE) - Progress Progress Note: 05/21/22 11:51 Medical decision making: This patient has cellulitis and drainage from chronic venous stasis ulcers. He has failed outpatient antibiotic therapy. We will bring him into the hospital and provide him with intravenous antibiotics as well as a consultation by manager strategic development Dr. Donald. We will also provide a sliding scale insulin regimen for him. We will repeat labs. I spoke with Dr. Sandoval and she agrees with this plan. Discussed with : Maryjane - Departure Departure Disposition: In-patient Admission Clinical Impression: Cellulitis Condition: Stable Critical Care Time: No Referrals: IAN CHRISTENSEN [Primary Care Provider] - Follow up/PCP as directed
[2022-05-21 10:50] LABS: Absolute Neutrophil Ct (ANC) 4.19 x10^3/uL (1.4-6.9); Basophil (Absolute #) 0.02 x10^3/uL (0-0.4); Eosinophil % 1.6 % (0.00-5.0); Eosinophil (Absolute #) 0.09 x10^3/uL (0-0.5); Hematocrit 33.6 % (42-50); Hemoglobin 10.8 g/dL (12.5-18.0); Lymphocyte (Absolute #) 0.66 x10^3/uL (1.0-4.6); Lymphocytes % 11.8 % (24.0-44.0); Mean Cell Volume 94.1 fL (78-100); Mean Corpuscular Hemoglobin 30.3 pg (26-32); Mean Corpuscular Hgb Concent. 32.1 g/dL (32-36); Mean Platelet Volume 10.9 fL (7.5-11.0); Monocyte (Absolute #) 0.62 x10^3/uL (0.0-1.3); Monocytes % 11.1 % (0.0-12.0); Neutrophil % 74.9 % (36.0-66.0); Platelet Count 102 x10^3/uL (150-450); Red Blood Count 3.57 x10^6/uL (4.1-5.6); White Blood Count 5.6 x10^3/uL (4.0-10.5)
[2022-05-21 11:25] LABS: ALBUMIN 3.1 g/dL (3.5-5.0); ANION GAP 14.9 MEQ/L (5-15); BILIRUBIN,TOTAL 1.2 mg/dL (0.2-1.3); Calcium 8.4 mg/dL (8.4-10.2); Creatinine 1 2.26 mg/dL (0.66-1.25); EST GLOMERULAR FILTRATION RATE 31.4 ML/MIN; Potassium 4.5 mmol/L (3.5-5.1); Total Protein 7.5 g/dL (6.3-8.2)
[2022-05-21 11:28] LABS: INFLUENZA A NEGATIVE (NEGATIVE); INFLUENZA B NEGATIVE (NEGATIVE); RESPIRATORY SYNCTIAL VIRUS NEGATIVE (Negative); SARS-CoV-2 Xpert Express NEGATIVE (NEGATIVE)
[2022-05-21] MEDS ORDERED: TYLENOL 325 MG PO PRN (13:30)
[2022-05-21] MEDS ORDERED: Zofran 4 MG/2 ML VIAL IV PRN (13:30)
[2022-05-21] MEDS ORDERED: HUMULIN R SQ PRN (13:30)
[2022-05-21] MEDS: MORPHINE SULFATE 4 MG INJ IV PRN ×2 (13:44→19:15)
[2022-05-21] MEDS: CLINDAMYCIN-D5W 600 MG/50 ML*** 600 MG/50 ML BAG IV SCH ×2 (13:45→21:37)
[2022-05-21] MEDS: Sodium Chloride 0.9% 1000 ML 1,000 ML IV SCH (13:46)
[2022-05-21 14:48] LABS: Hematocrit 33.1 % (42-50); Hemoglobin 10.7 g/dL (12.5-18.0); Mean Cell Volume 94.6 fL (78-100); Mean Corpuscular Hemoglobin 30.6 pg (26-32); Mean Corpuscular Hgb Concent. 32.3 g/dL (32-36); Mean Platelet Volume 9.9 fL (7.5-11.0); Platelet Count 94 x10^3/uL (150-450); Red Cell Distribution Width 13.1 % (11.5-14.0); White Blood Count 4.6 x10^3/uL (4.0-10.5)
[2022-05-21 15:13] LABS: Calcium 8.1 mg/dL (8.4-10.2); Creatinine 1 2.07 mg/dL (0.66-1.25); EST GLOMERULAR FILTRATION RATE 34.8 ML/MIN; PREALBUMIN 4.96 mg/dL (17.6-36.0); Potassium 4.3 mmol/L (3.5-5.1)
[2022-05-21 15:20] LABS: Slide Review YES
[2022-05-21] MEDS: Levofloxacin 500MG/100ML D5W 500 MG/100 ML BAG IV SCH (16:00)
[2022-05-21] MEDS ORDERED: NON-FORMULARY ITEM (Insulin Lispro 1 UNIT Ml) SQ SCH (16:30)
--- NOTE | 2022-05-21 16:50 | PCM.CONS ---
Podiatry HPI - Consult Date of Consultation Date: 05/21/22 Reason for Consult: Venous insuffiecny ulcers b/l Consulting Provider: ANDIE ROSE DPM - [facility] History of Present Illness: Mika is a very pleasant 61 year old male with positive hx of HTN, Hepatitis C, DM II, GERD who presents today with exacerbation of cellulitis to the right lower extremity after battling a longstanding history of chronic venous insufficiency and ulceration. Patient's symptomatology has been present for over a week at this time. He has been seen by his primary care and failed outpatient antibiotics. At this time symptoms have worsened. Doppler was obtained on May 17 demonstrating negative for DVT. He denies any constitutional symptoms of infection. He denies any other pedal complaints at this time Medications & Allergies Home Medications: Home Medication List Insulin Glargine,Hum.rec.anlog [Basaglar Kwikpen U-100] 40 unit SQ DAILY 05/21/22 [History Confirmed 05/21/22] Insulin Lispro [Humalog] 20 unit SQ AC 05/21/22 [History Confirmed 05/21/22] Allergies/Adverse Reactions: Allergies Allergy/AdvReac Type Severity Reaction Status Date / Time No Known Drug Allergies Allergy Verified 05/21/22 14:32 - Past Medical History Past Medical History: Yes Neurological History: No Pertinent History ENT History: No Pertinent History Cardiac History: No Pertinent History Respiratory History: No Pertinent History Endocrine Medical History: Diabetes Type II Musculoskelatal History: Fractures GI Medical History: Cirrhosis, Hepatitis History: Renal Disease Pyscho-Social History: No Pertinent History Male Reproductive Disorders: No Pertinent History Comment: "hole in a kidney", Hepititis C but has had vaccine. fell and broke back that didn't require surgery - Past Surgical History Past Surgical History: Yes Neuro Surgical History: No Pertinent History Cardiac History: No Pertinent History Respiratory Surgery: No Pertinent History GI Surgical History: No Pertinent History Genitourinary Surgical Hx: No Pertinent History Musculskeletal Surgical Hx: No Pertinent History Male Surgical History: No Pertinent History Other Surgical History: liver biopsy - Social History Smoking Status: Former smoker Exposure to second hand smoke: No Alcohol: None Drug Use: none Significant Family History: no pertinent family hx Physical Exam - Vascular Peripheral Pulses: Posterior tibialis: 2+, Dorsalis-Pedis: 2+ Capillary Refill Time: < 3 seconds Hair Growth: Symmetrical and Bilateral Varicosities: Positive Edema: Non-pitting Edema Degree: 1+ (wounds as documented in paper chart measurements as indicated. Fibrotic to the anterior distal and lateral wounds to the right lower extremity. mixed fibrotic granular appearence to the left lower extremity. No obvious signs of infection. Signficant indications of brawny edema with hemosideroin depo) - Narrative Narrative Physical Exam: Podiatry Physical Exam Results - Labs Lab/Micro Results: Lab Results-Last 24 Hours 05/21/22 05/21/22 05/21/22 Range/Units 10:10 10:10 10:35 WBC 5.6 (4.0-10.5) x10^3/uL RBC 3.57 L (4.1-5.6) x10^6/uL Hgb 10.8 L (12.5-18.0) g/dL Hct 33.6 L (42-50) % MCV 94.1 (78-100) fL MCH 30.3 (26-32) pg MCHC 32.1 (32-36) g/dL RDW 13.0 (11.5-14.0) % Plt Count 102 L (150-450) x10^3/uL MPV 10.9 (7.5-11.0) fL Gran % 74.9 H (36.0-66.0) % Immature Gran % (Auto) 0.2 (0.00-0.4) % Nucleat RBC Rel Count 0.0 (0.00-0.1) % Eos # (Auto) 0.09 (0-0.5) x10^3/uL Immature Gran # (Auto) 0.01 (0.00-0.03) x10^3u/L Absolute Lymphs (auto) 0.66 L (1.0-4.6) x10^3/uL Absolute Monos (auto) 0.62 (0.0-1.3) x10^3/uL Absolute Nucleated RBC 0.00 (0.00-0.01) x10^3u/L Lymphocytes % 11.8 L (24.0-44.0) % Monocytes % 11.1 (0.0-12.0) % Eosinophils % 1.6 (0.00-5.0) % Basophils % 0.4 (0.0-0.4) % Absolute Granulocytes 4.19 (1.4-6.9) x10^3/uL Basophils # 0.02 (0-0.4) x10^3/uL Sodium 138 (137-145) mmol/L Potassium 4.5 (3.5-5.1) mmol/L Chloride 110 H (98-107) mmol/L Carbon Dioxide 18 L (22-30) mmol/L Anion Gap 14.9 (5-15) MEQ/L BUN 22 H (9-20) mg/dL Creatinine 2.26 H (0.66-1.25) mg/dL Estimated GFR 31.4 ML/MIN Glucose 174 H (74-106) mg/dL Hemoglobin A1c (4.5-6.0) % Lactic Acid (0.4-2.0) Calcium 8.4 (8.4-10.2) mg/dL Total Bilirubin 1.20 (0.2-1.3) mg/dL AST 47 (17-59) U/L ALT 30 (0-50) U/L Alkaline Phosphatase 322 H (38-126) U/L Serum Total Protein 7.5 (6.3-8.2) g/dL Albumin 3.1 L (3.5-5.0) g/dL Prealbumin (17.6-36.0) mg/dL Influenza Type A Ag NEGATIVE (NEGATIVE) Influenza Type B Ag NEGATIVE (NEGATIVE) RSV (PCR) NEGATIVE (Negative) SARS-CoV-2 (PCR) NEGATIVE (NEGATIVE) Slides for Path Review 05/21/22 05/21/22 05/21/22 Range/Units 10:42 14:43 14:43 WBC 4.6 (4.0-10.5) x10^3/uL RBC 3.50 L (4.1-5.6) x10^6/uL Hgb 10.7 L (12.5-18.0) g/dL Hct 33.1 L (42-50) % MCV 94.6 (78-100) fL MCH 30.6 (26-32) pg MCHC 32.3 (32-36) g/dL RDW 13.1 (11.5-14.0) % Plt Count 94 L (150-450) x10^3/uL MPV 9.9 (7.5-11.0) fL Gran % (36.0-66.0) % Immature Gran % (Auto) (0.00-0.4) % Nucleat RBC Rel Count (0.00-0.1) % Eos # (Auto) (0-0.5) x10^3/uL Immature Gran # (Auto) (0.00-0.03) x10^3u/L Absolute Lymphs (auto) (1.0-4.6) x10^3/uL Absolute Monos (auto) (0.0-1.3) x10^3/uL Absolute Nucleated RBC (0.00-0.01) x10^3u/L Lymphocytes % (24.0-44.0) % Monocytes % (0.0-12.0) % Eosinophils % (0.00-5.0) % Basophils % (0.0-0.4) % Absolute Granulocytes (1.4-6.9) x10^3/uL Basophils # (0-0.4) x10^3/uL Sodium 137 (137-145) mmol/L Potassium 4.3 (3.5-5.1) mmol/L Chloride 112 H (98-107) mmol/L Carbon Dioxide 20 L (22-30) mmol/L Anion Gap 10.0 (5-15) MEQ/L BUN 23 H (9-20) mg/dL Creatinine 2.07 H (0.66-1.25) mg/dL Estimated GFR 34.8 ML/MIN Glucose 151 H (74-106) mg/dL Hemoglobin A1c (4.5-6.0) % Lactic Acid 1.8 (0.4-2.0) Calcium 8.1 L (8.4-10.2) mg/dL Total Bilirubin (0.2-1.3) mg/dL AST (17-59) U/L ALT (0-50) U/L Alkaline Phosphatase (38-126) U/L Serum Total Protein (6.3-8.2) g/dL Albumin (3.5-5.0) g/dL Prealbumin 4.96 L (17.6-36.0) mg/dL Influenza Type A Ag (NEGATIVE) Influenza Type B Ag (NEGATIVE) RSV (PCR) (Negative) SARS-CoV-2 (PCR) (NEGATIVE) Slides for Path Review YES 05/21/22 Range/Units 14:43 WBC (4.0-10.5) x10^3/uL RBC (4.1-5.6) x10^6/uL Hgb (12.5-18.0) g/dL Hct (42-50) % MCV (78-100) fL MCH (26-32) pg MCHC (32-36) g/dL RDW (11.5-14.0) % Plt Count (150-450) x10^3/uL MPV (7.5-11.0) fL Gran % (36.0-66.0) % Immature Gran % (Auto) (0.00-0.4) % Nucleat RBC Rel Count (0.00-0.1) % Eos # (Auto) (0-0.5) x10^3/uL Immature Gran # (Auto) (0.00-0.03) x10^3u/L Absolute Lymphs (auto) (1.0-4.6) x10^3/uL Absolute Monos (auto) (0.0-1.3) x10^3/uL Absolute Nucleated RBC (0.00-0.01) x10^3u/L Lymphocytes % (24.0-44.0) % Monocytes % (0.0-12.0) % Eosinophils % (0.00-5.0) % Basophils % (0.0-0.4) % Absolute Granulocytes (1.4-6.9) x10^3/uL Basophils # (0-0.4) x10^3/uL Sodium (137-145) mmol/L Potassium (3.5-5.1) mmol/L Chloride (98-107) mmol/L Carbon Dioxide (22-30) mmol/L Anion Gap (5-15) MEQ/L BUN (9-20) mg/dL Creatinine (0.66-1.25) mg/dL Estimated GFR ML/MIN Glucose (74-106) mg/dL Hemoglobin A1c 8.18 H (4.5-6.0) % Lactic Acid (0.4-2.0) Calcium (8.4-10.2) mg/dL Total Bilirubin (0.2-1.3) mg/dL AST (17-59) U/L ALT (0-50) U/L Alkaline Phosphatase (38-126) U/L Serum Total Protein (6.3-8.2) g/dL Albumin (3.5-5.0) g/dL Prealbumin (17.6-36.0) mg/dL Influenza Type A Ag (NEGATIVE) Influenza Type B Ag (NEGATIVE) RSV (PCR) (Negative) SARS-CoV-2 (PCR) (NEGATIVE) Slides for Path Review Assessment/Plan (1) Chronic venous insufficiency of lower extremity Current Visit: Yes Status: Acute Assessment & Plan: Initial patient examination evaluation Venous Dopplers negative for DVT at this time. Clinical examination is consistent with possible cellulitis to the right lower extremity given recent symptomatology however patient does have obvious chronic venous insufficiency with ulceration. Medicine managing Abx at this time. cultures obtained by floor nurse will defer pain control and abx to medicine at this time. Debridement of wounds as described Attention was directed to the Right anterior leg ulceration. Verbal consent was obtained prior to the procedure. Sharp, excisional debridement was performed of the right leg ulcer ulcer using a loop curette. Removal of nonviable tissue was performed with the debridement: fibrotic and necrotic tissue Depth of debridement: skin and subcutaneous tissue Hemostasis was obtained a using pressure dressing. Pre- and post- debridement measurements as follows: Pre-Debridement: Size - 2.8 x 0.9 x 0.1 Post-Debridement: Size 3.0x 1. 5 x 0.2 Attention was directed to the Right lateral leg ulceration. Verbal consent was obtained prior to the procedure. Sharp, excisional debridement was performed of the right leg ulcer ulcer using a loop curette. Removal of nonviable tissue was performed with the debridement: fibrotic and necrotic tissue Depth of debridement: skin and subcutaneous tissue Hemostasis was obtained a using pressure dressing. Pre- and post- debridement measurements as follows: Pre-Debridement: Size - 5.6 x 1.4 x 0.1 Post-Debridement: Size - 6.2 x 1. 5 x 0.2 Unna boots applied to the bilateral lower extremity. Will proceed with NIVS to assess vascular status given patients complaints of rest pain and intermittent claudication. will follow closely. Code(s): I87.2 - VENOUS INSUFFICIENCY (CHRONIC) (PERIPHERAL) (2) Localized edema due to fluid overload Current Visit: Yes Status: Acute Code(s): E87.70 - FLUID OVERLOAD, UNSPECIFIED (3) Ulcer of extremity due to chronic venous insufficiency Current Visit: Yes Status: Acute Code(s): L98.499 - NON-PRESSURE CHRONIC UL CER OF SKIN OF SITES W UNSP SEVERITY; I87.2 - VENOUS INSUFFICIENCY (CHRONIC) (PERIPHERAL) (4) Failure of outpatient treatment Current Visit: Yes Status: Acute Code(s): Z78.9 - OTHER SPECIFIED HEALTH STATUS (5) Cellulitis Current Visit: Yes Status: Acute Code(s): L03.90 - CELLULITIS, UNSPECIFIED
[2022-05-21] MEDS: HUMALOG SQ SCH (17:27)
[2022-05-21] MEDS: Lantus Insulin SQ SCH (17:28)
[2022-05-22] MEDS: Sodium Chloride 0.9% 1000 ML 1,000 ML IV SCH ×2 (01:37→18:26)
[2022-05-22 05:19] LABS: Absolute Neutrophil Ct (ANC) 2.67 x10^3/uL (1.4-6.9); Basophil (Absolute #) 0.02 x10^3/uL (0-0.4); Eosinophil % 3.2 % (0.00-5.0); Eosinophil (Absolute #) 0.12 x10^3/uL (0-0.5); Hematocrit 29.1 % (42-50); Hemoglobin 9.7 g/dL (12.5-18.0); Lymphocyte (Absolute #) 0.52 x10^3/uL (1.0-4.6); Lymphocytes % 13.8 % (24.0-44.0); Mean Cell Volume 93.6 fL (78-100); Mean Corpuscular Hemoglobin 31.2 pg (26-32); Mean Corpuscular Hgb Concent. 33.3 g/dL (32-36); Mean Platelet Volume 9.9 fL (7.5-11.0); Monocyte (Absolute #) 0.43 x10^3/uL (0.0-1.3); Monocytes % 11.4 % (0.0-12.0); Neutrophil % 70.8 % (36.0-66.0); Platelet Count 88 x10^3/uL (150-450); Red Blood Count 3.11 x10^6/uL (4.1-5.6); Red Cell Distribution Width 13.2 % (11.5-14.0); White Blood Count 3.8 x10^3/uL (4.0-10.5)
[2022-05-22 05:37] LABS: ALBUMIN 2.6 g/dL (3.5-5.0); ANION GAP 10.1 MEQ/L (5-15); BILIRUBIN,TOTAL 0.8 mg/dL (0.2-1.3); Calcium 7.7 mg/dL (8.4-10.2); Creatinine 1 2.06 mg/dL (0.66-1.25); Total Protein 6.6 g/dL (6.3-8.2)
[2022-05-22] MEDS: CLINDAMYCIN-D5W 600 MG/50 ML*** 600 MG/50 ML BAG IV SCH ×3 (06:13→21:10)
[2022-05-22] MEDS: HUMALOG SQ SCH ×3 (08:52→17:32)
[2022-05-22] MEDS ORDERED: NON-FORMULARY ITEM (Insulin Glargine,Hum.Rec.Anlog [Basaglar Kwikpen U-100] 100 UNIT/ML In SQ SCH (10:00)
[2022-05-22 10:03] LABS: Slide Review 1 YES
[2022-05-22] MEDS: Levofloxacin 500MG/100ML D5W 500 MG/100 ML BAG IV SCH (10:36)
--- NOTE | 2022-05-22 11:16 | XRAY ---
Indication: Intermittent claudication. Two-dimensional sonogram and color Doppler imaging of the major arteries of the left and right leg performed. Comparison: None Examination of the right leg demonstrates widely patent common femoral, deep femoral, superficial femoral, popliteal, posterior tibial, and dorsal pedal arteries. Arterial waveforms are multiphasic throughout the right leg. Examination of the left leg also demonstrates widely patent common femoral, deep femoral, superficial femoral, popliteal, posterior tibial, and dorsal pedal arteries with multiphasic arterial waveforms. Impression: Left and right leg arterial sonogram negative for critical stenosis/obstruction.
--- NOTE | 2022-05-22 11:19 | XRAY ---
Indication: Intermittent claudication. Bilateral ankle brachial index exam performed. Comparison: None Right arm brachial pressure is 105. Right ankle pressure is 115. Ankle brachial index is 1.06, normal. Left arm brachial pressure is 108. Left ankle pressure is 126. Ankle brachial index is 1.17, normal. Impression: Left and right ABIs are normal.
[2022-05-22] MEDS: Lantus Insulin SQ SCH (12:00)
--- NOTE | 2022-05-22 14:49 | PCM.NOTE ---
Date and Time: 05/22/22 1448 Subjective Assessment: Patient seen at bedside this morning resting comfortably. No complaints of intermittent claudication overnight. Noninvasive vascular studies obtained prior to visitation. Patient voices no significant complaints. Physical Exam - Vascular Peripheral Pulses: Posterior tibialis: 2+, Dorsalis-Pedis: 2+ Capillary Refill Time: < 3 seconds Hair Growth: Symmetrical and Bilateral Varicosities: Positive Edema: Pitting Edema Degree: 1+ (1+ (wounds as documented in paper chart measurements as indicated. Fibrotic to the anterior distal and lateral wounds to the right lower extremity. mixed fibrotic granular appearence to the left lower extremity. No obvious signs of infection. Signficant indications of brawny edema with hemosideroin) - Narrative Narrative Physical Exam: Podiatry Physical Exam OBJECTIVE DATA Vital Signs: Vital Signs - 24 hr Temp Pulse Resp BP Pulse Ox 05/22/22 12:00 98.7 F 77 16 117/66 96 05/22/22 08:00 98.4 F 76 15 177/66 95 05/22/22 04:00 98.9 F 89 16 101/54 95 05/22/22 00:00 99.6 F 83 20 104/53 94 L 05/21/22 19:14 99.0 F 78 17 121/67 98 Pain Assessment - Last Documented Pain Intensity 3 Pain Scale Used 0-10 Pain Scale Intake and Output: Intake & Output 05/20/22 05/21/22 05/22/22 05/23/22 11:59 11:59 11:59 11:59 Intake Total 2650 480 Output Total 950 500 Balance 1700 -20 Weight 98.883 kg 95.5 kg Lab Results: Lab Results-Last 24 Hours 05/21/22 05/21/22 05/21/22 Range/Units 14:43 14:43 14:43 WBC 4.6 (4.0-10.5) x10^3/uL RBC 3.50 L (4.1-5.6) x10^6/uL Hgb 10.7 L (12.5-18.0) g/dL Hct 33.1 L (42-50) % MCV 94.6 (78-100) fL MCH 30.6 (26-32) pg MCHC 32.3 (32-36) g/dL RDW 13.1 (11.5-14.0) % Plt Count 94 L (150-450) x10^3/uL MPV 9.9 (7.5-11.0) fL Gran % (36.0-66.0) % Immature Gran % (Auto) (0.00-0.4) % Nucleat RBC Rel Count (0.00-0.1) % Eos # (Auto) (0-0.5) x10^3/uL Immature Gran # (Auto) (0.00-0.03) x10^3u/L Absolute Lymphs (auto) (1.0-4.6) x10^3/uL Absolute Monos (auto) (0.0-1.3) x10^3/uL Absolute Nucleated RBC (0.00-0.01) x10^3u/L Lymphocytes % (24.0-44.0) % Monocytes % (0.0-12.0) % Eosinophils % (0.00-5.0) % Basophils % (0.0-0.4) % Absolute Granulocytes (1.4-6.9) x10^3/uL Basophils # (0-0.4) x10^3/uL Sodium 137 (137-145) mmol/L Potassium 4.3 (3.5-5.1) mmol/L Chloride 112 H (98-107) mmol/L Carbon Dioxide 20 L (22-30) mmol/L Anion Gap 10.0 (5-15) MEQ/L BUN 23 H (9-20) mg/dL Creatinine 2.07 H (0.66-1.25) mg/dL Estimated GFR 34.8 ML/MIN Glucose 151 H (74-106) mg/dL POC Glucometer (74 to 106) mg/dL Hemoglobin A1c 8.18 H (4.5-6.0) % Calcium 8.1 L (8.4-10.2) mg/dL Total Bilirubin (0.2-1.3) mg/dL AST (17-59) U/L ALT (0-50) U/L Alkaline Phosphatase (38-126) U/L Serum Total Protein (6.3-8.2) g/dL Albumin (3.5-5.0) g/dL Prealbumin 4.96 L (17.6-36.0) mg/dL Slides for Path Review YES 05/21/22 05/22/22 05/22/22 Range/Units 17:04 05:15 05:15 WBC 3.8 L (4.0-10.5) x10^3/uL RBC 3.11 L (4.1-5.6) x10^6/uL Hgb 9.7 L (12.5-18.0) g/dL Hct 29.1 L (42-50) % MCV 93.6 (78-100) fL MCH 31.2 (26-32) pg MCHC 33.3 (32-36) g/dL RDW 13.2 (11.5-14.0) % Plt Count 88 L (150-450) x10^3/uL MPV 9.9 (7.5-11.0) fL Gran % 70.8 H (36.0-66.0) % Immature Gran % (Auto) 0.3 (0.00-0.4) % Nucleat RBC Rel Count 0.0 (0.00-0.1) % Eos # (Auto) 0.12 (0-0.5) x10^3/uL Immature Gran # (Auto) 0.01 (0.00-0.03) x10^3u/L Absolute Lymphs (auto) 0.52 L (1.0-4.6) x10^3/uL Absolute Monos (auto) 0.43 (0.0-1.3) x10^3/uL Absolute Nucleated RBC 0.00 (0.00-0.01) x10^3u/L Lymphocytes % 13.8 L (24.0-44.0) % Monocytes % 11.4 (0.0-12.0) % Eosinophils % 3.2 (0.00-5.0) % Basophils % 0.5 (0.0-0.4) % Absolute Granulocytes 2.67 (1.4-6.9) x10^3/uL Basophils # 0.02 (0-0.4) x10^3/uL Sodium 135 L (137-145) mmol/L Potassium 5.0 (3.5-5.1) mmol/L Chloride 111 H (98-107) mmol/L Carbon Dioxide 19 L (22-30) mmol/L Anion Gap 10.1 (5-15) MEQ/L BUN 22 H (9-20) mg/dL Creatinine 2.06 H (0.66-1.25) mg/dL Estimated GFR 35.0 ML/MIN Glucose 129 H (74-106) mg/dL POC Glucometer 136 H (74 to 106) mg/dL Hemoglobin A1c (4.5-6.0) % Calcium 7.7 L (8.4-10.2) mg/dL Total Bilirubin 0.80 (0.2-1.3) mg/dL AST 44 (17-59) U/L ALT 27 (0-50) U/L Alkaline Phosphatase 275 H (38-126) U/L Serum Total Protein 6.6 (6.3-8.2) g/dL Albumin 2.6 L (3.5-5.0) g/dL Prealbumin (17.6-36.0) mg/dL Slides for Path Review YES 05/22/22 Range/Units 11:40 WBC (4.0-10.5) x10^3/uL RBC (4.1-5.6) x10^6/uL Hgb (12.5-18.0) g/dL Hct (42-50) % MCV (78-100) fL MCH (26-32) pg MCHC (32-36) g/dL RDW (11.5-14.0) % Plt Count (150-450) x10^3/uL MPV (7.5-11.0) fL Gran % (36.0-66.0) % Immature Gran % (Auto) (0.00-0.4) % Nucleat RBC Rel Count (0.00-0.1) % Eos # (Auto) (0-0.5) x10^3/uL Immature Gran # (Auto) (0.00-0.03) x10^3u/L Absolute Lymphs (auto) (1.0-4.6) x10^3/uL Absolute Monos (auto) (0.0-1.3) x10^3/uL Absolute Nucleated RBC (0.00-0.01) x10^3u/L Lymphocytes % (24.0-44.0) % Monocytes % (0.0-12.0) % Eosinophils % (0.00-5.0) % Basophils % (0.0-0.4) % Absolute Granulocytes (1.4-6.9) x10^3/uL Basophils # (0-0.4) x10^3/uL Sodium (137-145) mmol/L Potassium (3.5-5.1) mmol/L Chloride (98-107) mmol/L Carbon Dioxide (22-30) mmol/L Anion Gap (5-15) MEQ/L BUN (9-20) mg/dL Creatinine (0.66-1.25) mg/dL Estimated GFR ML/MIN Glucose (74-106) mg/dL POC Glucometer 212 H (74 to 106) mg/dL Hemoglobin A1c (4.5-6.0) % Calcium (8.4-10.2) mg/dL Total Bilirubin (0.2-1.3) mg/dL AST (17-59) U/L ALT (0-50) U/L Alkaline Phosphatase (38-126) U/L Serum Total Protein (6.3-8.2) g/dL Albumin (3.5-5.0) g/dL Prealbumin (17.6-36.0) mg/dL Slides for Path Review Radiology Exams: Radiology Procedures Category Date Time Status JHOANA/LIMB PRESSURES BILATERAL [US] Urgent Exams 05/22/22 10:00 Completed ARTERIAL BILAT LOWER EXTREMITY [US] Urgent Exams 05/22/22 10:00 Completed Assessment/Plan (1) Chronic venous insufficiency of lower extremity Current Visit: Yes Status: Acute Assessment & Plan: Patient examination evaluation Venous Dopplers negative for DVT at this time. Clinical examination is consistent with possible cellulitis to the right lower extremity given recent symptomatology however patient does have obvious chronic venous insufficiency with ulceration. Medicine managing Abx at this time. cultures obtained by floor nurse will defer pain control and abx to medicine at this time. NIVS obtained demonstrating adequate perfusion for debridement and wound healing. This also disputes intermittent claudication in regards to patients calf pain. Will recommend stretching exercises and ropinerole to see if there is improvement in symptomatically. Unna boots applied to the bilateral lower extremity. will follow closely. Code(s): I87.2 - VENOUS INSUFFICIENCY (CHRONIC) (PERIPHERAL) (2) Localized edema due to fluid overload Current Visit: Yes Status: Acute Code(s): E87.70 - FLUID OVERLOAD, UNSPECIFIED (3) Ulcer of extremity due to chronic venous insufficiency Current Visit: Yes Status: Acute Code(s): L98.499 - NON-PRESSURE CHRONIC ULCER OF SKIN OF SITES W UNSP SEVERITY; I87.2 - VENOUS INSUFFICIENCY (CHRONIC) (PERIPHERAL) (4) Failure of outpatient treatment Current Visit: Yes Status: Acute Code(s): Z78.9 - OTHER SPECIFIED HEALTH STATUS (5) Cellulitis Current Visit: Yes Status: Acute Code(s): L03.90 - CELLULITIS, UNSPECIFIED
[2022-05-22] MEDS: MORPHINE SULFATE 4 MG INJ IV PRN (23:49)
[2022-05-23 04:56] LABS: Hematocrit 27.9 % (42-50); Hemoglobin 9.5 g/dL (12.5-18.0); Mean Corpuscular Hemoglobin 30.6 pg (26-32); Mean Corpuscular Hgb Concent. 34.1 g/dL (32-36); Mean Platelet Volume 10.2 fL (7.5-11.0); Platelet Count 87 x10^3/uL (150-450); Red Cell Distribution Width 12.8 % (11.5-14.0); White Blood Count 3.7 x10^3/uL (4.0-10.5)
[2022-05-23] MEDS: MORPHINE SULFATE 4 MG INJ IV PRN ×2 (05:04→11:57)
[2022-05-23] MEDS: CLINDAMYCIN-D5W 600 MG/50 ML*** 600 MG/50 ML BAG IV SCH ×3 (05:04→21:36)
[2022-05-23 05:21] LABS: ANION GAP 10.1 MEQ/L (5-15); Calcium 7.7 mg/dL (8.4-10.2); Creatinine 1 1.93 mg/dL (0.66-1.25); EST GLOMERULAR FILTRATION RATE 37.7 ML/MIN; Potassium 4.6 mmol/L (3.5-5.1)
[2022-05-23 05:45] LABS: Slide Review YES
[2022-05-23] MEDS: HUMALOG SQ SCH ×3 (08:14→17:13)
[2022-05-23] MEDS: Lantus Insulin SQ SCH (09:41)
[2022-05-23] MEDS: Levofloxacin 500MG/100ML D5W 500 MG/100 ML BAG IV SCH (09:41)
[2022-05-23] MEDS: NORCO 7.5/325 MG TAB PO PRN (15:53)
--- NOTE | 2022-05-23 16:07 | PCM.NOTE ---
Date and Time: 05/23/22 1607 Subjective Assessment: Patient seen at bedside this morning resting comfortably. No complaints of intermittent claudication overnight. Noninvasive vascular studies obtained prior to visitation. Patient voices no significant complaints. Physical Exam - General General Appearance: no apparent distress - Neuro Neurologic: Epicritic and protopathic - Vascular Peripheral Pulses: Posterior tibialis: 2+, Dorsalis-Pedis: 2+ Capillary Refill Time: < 3 seconds Hair Growth: Symmetrical and Bilateral Varicosities: Positive Edema: None Edema Degree: 1+ Skin: Supple, not atrophic (1+ (1+ (wounds as documented in paper chart measurements as indicated. Fibrotic to the anterior distal and lateral wounds to the right lower extremity. mixed fibrotic granular appearence to the left lower extremity. No obvious signs of infection. Signficant indications of brawny edema with hemosider) - Narrative Narrative Physical Exam: Podiatry Physical Exam OBJECTIVE DATA Vital Signs: Vital Signs - 24 hr Temp Pulse Resp BP Pulse Ox 05/23/22 11:44 98.7 F 80 16 109/65 96 05/23/22 06:49 99.1 F 77 16 115/69 95 05/23/22 04:00 98.9 F 80 18 90/57 96 05/22/22 23:38 99.3 F 79 24 109/55 95 05/22/22 19:09 98.2 F 68 20 102/60 97 Pain Assessment - Last Documented Pain Intensity 6 Pain Scale Used 0-10 Pain Scale Intake and Output: Intake & Output 05/21/22 05/22/22 05/23/22 05/24/22 11:59 11:59 11:59 11:59 Intake Total 2650 3542 240 Output Total 950 3450 550 Balance 1700 92 -310 Weight 98.883 kg 95.5 kg 96 kg Lab Results: Lab Results-Last 24 Hours 05/22/22 05/23/22 05/23/22 Range/Units 20:53 04:56 04:56 WBC 3.7 L (4.0-10.5) x10^3/uL RBC 3.10 L (4.1-5.6) x10^6/uL Hgb 9.5 L (12.5-18.0) g/dL Hct 27.9 L (42-50) % MCV 90.0 (78-100) fL MCH 30.6 (26-32) pg MCHC 34.1 (32-36) g/dL RDW 12.8 (11.5-14.0) % Plt Count 87 L (150-450) x10^3/uL MPV 10.2 (7.5-11.0) fL Sodium 133 L (137-145) mmol/L Potassium 4.6 (3.5-5.1) mmol/L Chloride 111 H (98-107) mmol/L Carbon Dioxide 15 L* (22-30) mmol/L Anion Gap 10.1 (5-15) MEQ/L BUN 24 H (9-20) mg/dL Creatinine 1.93 H (0.66-1.25) mg/dL Estimated GFR 37.7 ML/MIN Glucose 162 H (74-106) mg/dL POC Glucometer 103 (74 to 106) mg/dL Calcium 7.7 L (8.4-10.2) mg/dL Slides for Path Review YES 05/23/22 05/23/22 05/23/22 Range/Units 07:12 11:11 15:47 WBC (4.0-10.5) x10^3/uL RBC (4.1-5.6) x10^6/uL Hgb (12.5-18.0) g/dL Hct (42-50) % MCV (78-100) fL MCH (26-32) pg MCHC (32-36) g/dL RDW (11.5-14.0) % Plt Count (150-450) x10^3/uL MPV (7.5-11.0) fL Sodium (137-145) mmol/L Potassium (3.5-5.1) mmol/L Chloride (98-107) mmol/L Carbon Dioxide (22-30) mmol/L Anion Gap (5-15) MEQ/L BUN (9-20) mg/dL Creatinine (0.66-1.25) mg/dL Estimated GFR ML/MIN Glucose (74-106) mg/dL POC Glucometer 135 H 115 H 167 H (74 to 106) mg/dL Calcium (8.4-10.2) mg/dL Slides for Path Review Radiology Exams: Radiology Procedures Category Date Time Status JHOANA/LIMB PRESSURES BILATERAL [US] Urgent Exams 05/22/22 10:00 Completed ARTERIAL BILAT LOWER EXTREMITY [US] Urgent Exams 05/22/22 10:00 Completed Multi-Disciplinary Progress Notes: Multi-Disciplinary Progress Notes 05/23/22 13:45 Case Management Note by Aranza Bailey - [employer] MECH[employer]IC FROM [facility]- CALLED TO CHECK ON DC PLANS FOR PATIENT. SHE REPORTS THEY ARE IN NETWORK WITH [facility] IF EQUIPMENT IS NEEDED. [facility] ONLY COVERS A PORTION OF THE WALKER AND THE PATIENT WILL HAVE A COPAY FOR THE REMAINDER. SHE WOULD LIKE NOTIFIED AT [phone] AT TIME OF DC Initialized on 05/23/22 13:45 - END OF NOTE 05/23/22 09:55 Case Management Note by Aranza Bailey S/W PATIENT- HE CONTINUES TO DENY ANY NEW NEEDS AT TIME OF DC. HE PLANS TO RETURN HOME TO HIS PRIOR LEVEL OF FUNCTIONING AT TIME OF DC Initialized on 05/23/22 09:55 - END OF NOTE Assessment/Plan (1) Chronic venous insufficiency of lower extremity Current Visit: Yes Status: Acute Assessment & Plan: Patient examination evaluation Venous Dopplers negative for DVT at this time. Clinical examination is consistent with possible cellulitis to the right lower extremity given recent symptomatology however patient does have obvious chronic venous insufficiency with ulceration. Medicine managing Abx at this time. cultures obtained by floor nurse will defer pain control and abx to medicine at this time. NIVS obtained demonstrating adequate perfusion for debridement and wound healing. This also disputes intermittent claudication in regards to patients calf pain. Will recommend stretching exercises and ropinerole to see if there is improvement in symptomatically. dressings taken down for wound assessment new measurements taken 2.8 x 2.2 x 0.1 cm Right anterior 1.5 x 1.8 x 0.2 cm Right anterior-lateral 1.1 x 1.8 x 0.2 cm right lateral 5.4 x 2.1 x 0.2 cm proximal left anterior 1.7 x 1.8 x 0.3 cm left anterior distal Unna boots applied to the bilateral lower extremity. will follow closely. Code(s): I87.2 - VENOUS INSUFFICIENCY (CHRONIC) (PERIPHERAL) (2) Localized edema due to fluid overload Current Visit: Yes Status: Acute Code(s): E87.70 - FLUID OVERLOAD, UNSPECIFIED (3) Ulcer of extremity due to chronic venous insufficiency Current Visit: Yes Status: Acute Code(s): L98.499 - NON-PRESSURE CHRONIC ULCER OF SKIN OF SITES W UNSP SEVERITY; I87.2 - VENOUS INSUFFICIENCY (CHRONIC) (PERIPHERAL) (4) Failure of outpatient treatment Current Visit: Yes Status: Acute Code(s): Z78.9 - OTHER SPECIFIED HEALTH STATUS (5) Cellulitis Current Visit: Yes Status: Acute Code(s): L03.90 - CELLULITIS, UNSPECIFIED
[2022-05-23] MEDS: Sodium Chloride 0.9% 1000 ML 1,000 ML IV SCH (18:49)
[2022-05-23] MEDS: Requip 0.5 MG PO SCH (21:33)
[2022-05-24 05:16] LABS: Hematocrit 28.8 % (42-50); Hemoglobin 9.5 g/dL (12.5-18.0); Mean Cell Volume 90.9 fL (78-100); Mean Platelet Volume 9.8 fL (7.5-11.0); Platelet Count 88 x10^3/uL (150-450); Red Blood Count 3.17 x10^6/uL (4.1-5.6); Red Cell Distribution Width 12.8 % (11.5-14.0); White Blood Count 4.6 x10^3/uL (4.0-10.5)
[2022-05-24] MEDS: CLINDAMYCIN-D5W 600 MG/50 ML*** 600 MG/50 ML BAG IV SCH (05:37)
[2022-05-24 05:49] LABS: ANION GAP 11.6 MEQ/L (5-15); Calcium 7.9 mg/dL (8.4-10.2); Creatinine 1 1.93 mg/dL (0.66-1.25); EST GLOMERULAR FILTRATION RATE 37.7 ML/MIN
[2022-05-24 05:52] LABS: Slide Review YES
[2022-05-24] MEDS: HUMALOG SQ SCH ×3 (07:50→16:37)
[2022-05-24] MEDS: CLEOCIN 150 MG CAPSULE PO SCH ×3 (09:48→20:49)
[2022-05-24] MEDS: Levofloxacin 500MG/100ML D5W 500 MG/100 ML BAG IV SCH (09:48)
[2022-05-24] MEDS: Lantus Insulin SQ SCH (09:48)
[2022-05-24] MEDS ORDERED: Requip 0.5 MG PO SCH (10:00)
[2022-05-24] MEDS: NORCO 7.5/325 MG TAB PO PRN ×2 (14:48→20:49)
[2022-05-24] MEDS: Sodium Chloride 0.9% 1000 ML 1,000 ML IV SCH (14:49)
--- NOTE | 2022-05-24 17:57 | XRAY ---
Exam: AP supine portable chest film from 05/24/2022. Comparison: CT of the chest with IV contrast from 05/15/2020 and two-view chest film series from 09/18/2012. Indication: PICC line placement. Findings: Left-sided PICC line is seen with the tip pointing inferiorly near the caval-atrial junction in good position. The transverse heart size is normal. The mechelle and mediastinal structures appear unremarkable. There is mild tortuosity of the descending thoracic aorta. There appears to be a small calcified granuloma at the right lung base representing no change. No air space infiltrates, vascular congestion, pneumothorax, or pleural fluid is seen. There is minimal elevation of the right hemidiaphragm. No acute osseous process seen. Impression: 1. Left-sided PICC line in good position with the tip pointing inferiorly at the cavoatrial junction. 2. Slight elevation of the right hemidiaphragm. Otherwise, no acute cardiopulmonary disease is seen.
[2022-05-24] MEDS: Requip 0.5 MG PO SCH (20:48)
[2022-05-25] MEDS: Sodium Chloride 0.9% 1000 ML 1,000 ML IV SCH (04:01)
[2022-05-25 05:05] LABS: Hemoglobin 9.5 g/dL (12.5-18.0); Mean Cell Volume 90.9 fL (78-100); Mean Corpuscular Hemoglobin 29.8 pg (26-32); Mean Corpuscular Hgb Concent. 32.8 g/dL (32-36); Mean Platelet Volume 9.9 fL (7.5-11.0); Platelet Count 96 x10^3/uL (150-450); Red Blood Count 3.19 x10^6/uL (4.1-5.6); Red Cell Distribution Width 12.7 % (11.5-14.0); White Blood Count 4.6 x10^3/uL (4.0-10.5)
[2022-05-25 05:25] LABS: ANION GAP 10.4 MEQ/L (5-15); Calcium 7.9 mg/dL (8.4-10.2); Creatinine 1 1.83 mg/dL (0.66-1.25); EST GLOMERULAR FILTRATION RATE 40.1 ML/MIN; Potassium 5.3 mmol/L (3.5-5.1)
[2022-05-25 05:44] LABS: Slide Review YES
[2022-05-25] MEDS: HUMALOG SQ SCH (08:01)
--- NOTE | 2022-05-25 09:15 | PCM.NOTE ---
Date and Time: 05/25/22913 Subjective Assessment: Patient seen at bedside this morning resting comfortably. No complaints of intermittent claudication overnight. Noninvasive vascular studies obtained prior to visitation. Patient voices no significant complaints. Physical Exam - General General Appearance: no apparent distress - Neuro Neurologic: Epicritic and protopathic - Vascular Peripheral Pulses: Posterior tibialis: 2+, Dorsalis-Pedis: 2+ Capillary Refill Time: < 3 seconds Hair Growth: Symmetrical and Bilateral Varicosities: Positive Edema: Pitting Edema Degree: 1+ Skin: Supple, not atrophic (Supple, not atrophic (1+ (1+ (wounds as documented in paper chart measurements as indicated. Fibrotic to the anterior distal and lateral wounds to the right lower extremity. mixed fibrotic granular appearence to the left lower extremity. No obvious signs of infection. Signficant indications of brawn) - Narrative Narrative Physical Exam: Podiatry Physical Exam OBJECTIVE DATA Vital Signs: Vital Signs - 24 hr Temp Pulse Resp BP Pulse Ox 05/25/22 08:00 98.2 F 82 18 116/56 99 05/25/22 04:00 98.9 F 72 20 99/56 96 05/24/22 23:42 98.4 F 74 18 100/53 97 05/24/22 20:00 98.9 F 79 18 107/52 97 05/24/22 16:00 98.9 F 86 16 102/50 98 05/24/22 12:00 97.8 F 77 18 111/63 98 Pain Assessment - Last Documented Pain Intensity 0 Pain Scale Used FLACC Intake and Output: Intake & Output 05/22/22 05/23/22 05/24/22 05/25/22 11:59 11:59 11:59 11:59 Intake Total 2650 3542 3770 2602 Output Total 950 3450 2175 1250 Balance 1700 92 1595 1352 Weight 95.5 kg 96 kg 99.4 kg 100.2 kg Lab Results: Lab Results-Last 24 Hours 05/24/22 05/24/22 05/24/22 Range/Units 11:48 15:53 16:33 WBC (4.0-10.5) x10^3/uL RBC (4.1-5.6) x10^6/uL Hgb (12.5-18.0) g/dL Hct (42-50) % MCV (78-100) fL MCH (26-32) pg MCHC (32-36) g/dL RDW (11.5-14.0) % Plt Count (150-450) x10^3/uL MPV (7.5-11.0) fL Sodium (137-145) mmol/L Potassium (3.5-5.1) mmol/L Chloride (98-107) mmol/L Carbon Dioxide (22-30) mmol/L Anion Gap (5-15) MEQ/L BUN (9-20) mg/dL Creatinine (0.66-1.25) mg/dL Estimated GFR ML/MIN Glucose (74-106) mg/dL POC Glucometer 356 H 53 L 101 (74 to 106) mg/dL Calcium (8.4-10.2) mg/dL Slides for Path Review 05/24/22 05/25/22 05/25/22 Range/Units 21:04 04:45 04:45 WBC 4.6 (4.0-10.5) x10^3/uL RBC 3.19 L (4.1-5.6) x10^6/uL Hgb 9.5 L (12.5-18.0) g/dL Hct 29.0 L (42-50) % MCV 90.9 (78-100) fL MCH 29.8 (26-32) pg MCHC 32.8 (32-36) g/dL RDW 12.7 (11.5-14.0) % Plt Count 96 L (150-450) x10^3/uL MPV 9.9 (7.5-11.0) fL Sodium 135 L (137-145) mmol/L Potassium 5.3 H (3.5-5.1) mmol/L Chloride 110 H (98-107) mmol/L Carbon Dioxide 20 L (22-30) mmol/L Anion Gap 10.4 (5-15) MEQ/L BUN 24 H (9-20) mg/dL Creatinine 1.83 H (0.66-1.25) mg/dL Estimated GFR 40.1 ML/MIN Glucose 132 H (74-106) mg/dL POC Glucometer 205 H (74 to 106) mg/dL Calcium 7.9 L (8.4-10.2) mg/dL Slides for Path Review YES 05/25/22 Range/Units 07:46 WBC (4.0-10.5) x10^3/uL RBC (4.1-5.6) x10^6/uL Hgb (12.5-18.0) g/dL Hct (42-50) % MCV (78-100) fL MCH (26-32) pg MCHC (32-36) g/dL RDW (11.5-14.0) % Plt Count (150-450) x10^3/uL MPV (7.5-11.0) fL Sodium (137-145) mmol/L Potassium (3.5-5.1) mmol/L Chloride (98-107) mmol/L Carbon Dioxide (22-30) mmol/L Anion Gap (5-15) MEQ/L BUN (9-20) mg/dL Creatinine (0.66-1.25) mg/dL Estimated GFR ML/MIN Glucose (74-106) mg/dL POC Glucometer 98 (74 to 106) mg/dL Calcium (8.4-10.2) mg/dL Slides for Path Review Radiology Exams: Radiology Procedures Category Date Time Status CHEST 1 VIEW (PORTABLE) Routine Exams 05/24/22 13:12 Completed Multi-Disciplinary Progress Notes: Multi-Disciplinary Progress Notes 05/25/22 08:46 Case Management Note by Rachel Duarte PT STATES HE NEEDS WALKER, DISCUSSED GETTING ONE THROUGH INSURANCE AND POSSIBLE COPAY. STATES HE ALSO WANTS ONE FOR HIS SPOUSE. STATED SINCE SHE IS NOT CURRENTLY A PATIENT THIS [employer]LE[employer] SYSTEM OPERATOR WOULD NOT BE ABLE TO LOOK INTO GETTING HER ONE. DISCUSSED [facility] HERE IN [place] AND IN [place] HAVE EQUIPMENT THAT THEY LOAN OUT FOR NO CHARGE. STATES HE WOULD BE INTERESTED. PHONE NUMBERS PLACED ON D/C SHEET. DISCUSSED CURRENT D/C AND FOLLOW UP PLANS. PT DENIES ANY FURTHER NEEDS AND AGREES TO PLAN. Initialized on 05/25/22 08:46 - END OF NOTE 05/24/22 10:12 Case Management Note by Aranza Bailey S/W PATIENT ABOUT PLANS FOR DC. HE REPORTS HE HAS A WALKER HE CAN BORROW TO USE AT HOME. HE ALSO REPORTS HE HAS TRANSPORTATION TO GET BACK AND FORTH FOR INFUSIONS. HE DENIES ANY NEW NEEDS AT TIME OF DC AT THIS TIME. PATIENT PLANS TO RETURN HOME TO HIS PRIOR LEVEL OF FUNCTIONING AT TIME OF DC. Initialized on 05/24/22 10:12 - END OF NOTE 05/24/22 10:07 Case Management Note by Aranza Bailey 05/23/22- KEISER ORDERED PATIENT TO HAVE [facility] INFUSIONS OF [place] DAILY X 10 DAYS TO START DAY AFTER DC ( LIKELY 05/25/22) ORDERS AND FACESHEET TAKEN TO OTPT INFUSION. PATIENT SCHEDULED FOR SAT 05/26/22@ 8 AM. S/W ANDIE- HE WILL DRESS LEGS TODAY THEN PATIENT IS CLEARED FOR DC FROM HIS STANDPOINT. CHRISTINE BOOTS TO STAY IN PLACE UNTIL HIS FOLLOW UP WITH DR. CHAVES NEXT WEEK. ANDIE WILL THEN ORDER PT TO TAKE OVER DRESSING CHANGES WHEN HE IS READY TO DO SO Initialized on 05/24/22 10:07 - END OF NOTE Assessment/Plan (1) Chronic venous insufficiency of lower extremity Current Visit: Yes Status: Acute Assessment & Plan: Patient examination evaluation Venous Dopplers negative for DVT at this time. Clinical examination is consistent with possible cellulitis to the right lower extremity given recent symptomatology however patient does have obvious chronic venous insufficiency with ulceration. Medicine managing Abx at this time. cultures obtained by floor nurse will defer pain control and abx to medicine at this time. NIVS obtained demonstrating adequate perfusion for debridement and wound healing. This also disputes intermittent claudication in regards to patients calf pain. Will recommend stretching exercises and ropinerole to see if there is improvement in symptomatically. dressings taken down for wound assessment new measurements taken 2.8 x 2.2 x 0.1 cm Right anterior 1.5 x 1.8 x 0.2 cm Right anterior-lateral 1.1 x 1.8 x 0.2 cm right lateral 5.4 x 2.1 x 0.2 cm proximal left anterior 1.7 x 1.8 x 0.3 cm left anterior distal Unna boots applied to the bilateral lower extremity. Ok for dc when medical management criteria met Follow up next week. . Code(s): I87.2 - VENOUS INSUFFICIENCY (CHRONIC) (PERIPHERAL) (2) Localized edema due to fluid overload Current Visit: Yes Status: Acute Code(s): E87.70 - FLUID OVERLOAD, UNSPECIFIED (3) Ulcer of extremity due to chronic venous insufficiency Current Visit: Yes Status: Acute Code(s): L98.499 - NON-PRESSURE CHRONIC ULCER OF SKIN OF SITES W UNSP SEVERITY; I87.2 - VENOUS INSUFFICIENCY (CHRONIC) (PERIPHERAL) (4) Failure of outpatient treatment Current Visit: Yes Status: Acute Code(s): Z78.9 - OTHER SPECIFIED HEALTH STATUS (5) Cellulitis Current Visit: Yes Status: Acute Code(s): L03.90 - CELLULITIS, UNSPECIFIED
[2022-05-25] MEDS: Levofloxacin 500MG/100ML D5W 500 MG/100 ML BAG IV SCH (10:01)
[2022-05-25] MEDS: CLEOCIN 150 MG CAPSULE PO SCH (10:01)
[2022-05-25] MEDS: Lantus Insulin SQ SCH (10:33)
[2022-05-25 11:13] VITALS: BP 140/71; PULSE 87; O2SAT 97
--- NOTE | 2022-06-02 10:29 | PCM.DS ---
Discharge Summary Date of Admission: 05/21/22 13:28 Date of Discharge: 05/25/2022 Admitting Physician: HAY PLOK Consults: Consults on Case 05/21/22 13:30 Consult Podiatry ROUTINE Primary Care Provider: IAN CHRISTENSEN Allergies Allergies No Known Drug Allergies Allergy (Verified 05/26/22 08:07) Hospital Summary - Hospital Course Hospital Course: Pt. seen in office and started po antibiotics with 2 doses of im rocephin, pt. was improving but then declined, Pt. presented to er with worsening of cellulitis of right lower leg. Pt. admitted for continued iv abx and podiatry consultation. Pt. leg improved slowly each day to point it was felt he could be safely discharged to home with continued iv antibiotics, picc line placed and patient discharged on appropriate antibiotics. - Vitals & Intake/Output Vital Signs: Vital Signs Temperature 97.7 F 05/25/22 11:12 Pulse Rate 87 05/25/22 11:12 Respiratory Rate 18 05/25/22 11:12 Blood Pressure 140/71 05/25/22 11:12 O2 Sat by Pulse Oximetry 97 05/25/22 11:12 - Lab Result Diagrams: 05/25/22 04:45 05/25/22 04:45 Micro Results-Entire Visit: Microbiology 05/21/22 10:10 Blood Culture Gram Stain - Final Blood Not Reportable Blood Culture - Final NO GROWTH 05/21/22 10:35 Blood Culture Gram Stain - Final Blood Not Reportable Blood Culture - Final NO GROWTH 05/21/22 10:18 Wound Culture - Final Leg - Right Lower Kocuria Kristinae Discharge Exam General Appearance: no apparent distress, alert Neurologic Exam: alert, oriented x 3, cooperative, normal mood/affect, nml cerebellar function, sensation nml, No motor deficits Eye Exam: PERRL, EOMI, eyes nml inspection Ears, Nose, Throat Exam: normal ENT inspection, pharynx normal, moist mucous membranes Neck Exam: normal inspection, non-tender, supple, full range of motion Respiratory Exam: normal breath sounds, lungs clear, No respiratory distress Cardiovascular Exam: regular rate/rhythm, normal heart sounds Gastrointestinal/Abdomen Exam: soft, No tenderness, No mass Male Genitalia Exam: deferred Rectal Exam: deferred Back Exam: normal inspection, normal range of motion, No CVA tenderness, No vertebral tenderness Extremity Exam: normal inspection, normal range of motion, inflammation, swelling, tenderness Skin Exam: normal color, warm, dry, other (redness with warmth to the right lower leg) Final Diagnosis/Problem List - Final Discharge Diagnosis/Problem (1) Cellulitis Status: Acute Code(s): L03.90 - CELLULITIS, UNSPECIFIED (2) Chronic venous insufficiency of lower extremity Status: Acute Code(s): I87.2 - VENOUS INSUFFICIENCY (CHRONIC) (PERIPHERAL) (3) Failure of outpatient treatment Status: Acute Code(s): Z78.9 - OTHER SPECIFIED HEALTH STATUS - Discharge Discharge Date: 05/25/22 Disposition: Home, Self-Care Condition: Stable Prescriptions: New clindamycin HCL [Clindamycin HCl] 600 mg PO TID 10 Days #30 cap Continue Insulin Glargine,Hum.rec.anlog [Basaglar Kwikpen U-100] 40 unit SQ DAILY Insulin Lispro [Humalog] 20 unit SQ AC Instructions: How to Care for a Central Line Catheter, Cellulitis (Skin Infection), Adult (DC), Peripherally-Inserted Central Catheter (DC) Additional Instructions: YOUR FIRST INFUSION IS SCHEDULED FOR Saturday05/26/22@8 AM, GO TO REGISTRATION WHEN YOU ARRIVE KEEP DRESSINGS CLEAN AND DRY UNTIL YOUR SEE DR. CHAVES [facility] PHONE [phone] FOR A [facility] [phone] Follow up with: ANDIE ROSE DPM [ACTIVE STAFF] - 05/30/22 1:00 pm () IAN CHRISTENSEN [Primary Care Provider] - 05/31/22 8:30 am Forms: Discharge Instructions
== END 2022-05-25 11:35 | disposition home or self-care (01) | DRG 603 ==
LOC: ED 09:39 → MED SURG 13:28 → OBSVTOIN 13:28
PROVIDERS: ADMIT Family Medicine; ATTEND Family Medicine
DX: L03.115 Cellulitis of right lower limb (principal); I87.2 Venous insufficiency (chronic) (peripheral); E87.70 Fluid overload, unspecified; I10 Essential (primary) hypertension; B19.20 Unspecified viral hepatitis C without hepatic coma; L98.499 Non-pressure chronic ulcer of skin of other sites with unspecified severity; E11.9 Type 2 diabetes mellitus without complications; K74.60 Unspecified cirrhosis of liver; Z79.899 Other long term (current) drug therapy; Z20.828 Contact with and (suspected) exposure to other viral communicable diseases
CPT/HCPCS: 0241U; 11042; 29580; 36000; 36415; 71045; 80048; 80053; 82947; 83036; 83605; 84134; 85025; 85027; 87040; 87070; 87077; 93922; 93925; 94760; 99222; 99233; 99284; J1817; J1956; J2270; J2405; A9270-GY

== ENCOUNTER 2022-09-21 16:14 | Emergency (ER) | payer OTHER, SELFPAY ==
--- NOTE | 2022-09-21 16:52 | ERPHSYRPT ---
- History of Present Illness Time Seen by Provider: 09/21/22 16:51 Source: patient Exam Limitations: no limitations Physician History: Patient is a 61-year-old male presents to emergency department for evaluation of abdominal pain. Pain started today. Pain described as an ache that is lower abdomen. Patient took mag citrate at home. Patient produced some stool. Pat iewilbur's states his abdomen feels distended. Patient has a history of prostate hypertrophy. Patient has not been taking his Flomax. We inserted a Riley catheter and immediately obtained 600 cc of fluid. Patient experienced some rapid relief. Patient advises that he has chronic lower extremity venous stasis ulcers. Patient has been feeling weak. Patient is pale on exam. Significant other at bedside. Patient otherwise denies pain. He voices no other complaints or concerns at this time. Portions of this note were created with voice recognition technology. There may be grammatical, spelling, punctuation or sound alike errors Timing/Duration: today Severity: moderate Modifying Factors: Improves With: nothing Associated Symptoms: denies symptoms Allergies/Adverse Reactions: No Known Drug Allergies Allergy (Verified 09/21/22 16:32) Home Medications: Insulin Glargine,Hum.rec.anlog [Basaglar Kwikpen U-100] 40 unit SQ DAILY 0 05/21/22 [History] Insulin Lispro [Humalog] 30 unit SQ AC 05/21/22 [History] Hx Tetanus, Diphtheria Vaccination/Date Given: No Hx Influenza Vaccination/Date Given: No Hx Pneumococcal Vaccination/Date Given: No Travel Risk - Vaccine Status Have you recieved a Covid-19 vaccination: No - Review of Systems Constitutional: No Symptoms, No Fever, No Chills Eyes: No Symptoms Ears, Nose, & Throat: No Symptoms Respiratory: No Symptoms, No Cough, No Dyspnea Cardiac: No Symptoms, No Chest Pain, No Edema, No Syncope Abdominal/Gastrointestinal: No Symptoms, No Abdominal Pain, No Nausea, No Vomiting, No Diarrhea Genitourinary Symptoms: No Symptoms, No Dysuria Musculoskeletal: No Symptoms, No Back Pain, No Neck Pain Skin: No Symptoms, No Rash Neurological: No Symptoms, No Dizziness, No Focal Weakness, No Sensory Changes Psychological: No Symptoms Endocrine: No Symptoms Hematologic/Lymphatic: No Symptoms Immunological/Allergic: No Symptoms All Other Systems: Reviewed and Negative - Past Medical History Pertinent Past Medical History: Yes Neurological History: No Pertinent History ENT History: No Pertinent History Cardiac History: No Pertinent History Respiratory History: No Pertinent History Endocrine Medical History: Diabetes Type II Musculoskeletal History: Fractures GI Medical History: Cirrhosis, Hepatitis History: Renal Disease Psycho-Social History: No Pertinent History Male Reproductive Disorders: No Pertinent History Other Medical History: "hole in a kidney", Hepititis C but has had vaccine. fell and broke back that didn't require surgery - Past Surgical History Past Surgical History: Yes Neuro Surgical History: No Pertinent History Cardiac: No Pertinent History Respiratory: No Pertinent History Gastrointestinal: No Pertinent History Genitourinary: No Pertinent History Musculoskeletal: No Pertinent History Male Surgical History: No Pertinent History Other Surgical History: liver biopsy - Social History Smoking Status: Former smoker Exposure to second hand smoke: No Drug Use: none Patient Lives Alone: No Significant Family History: no pertinent family hx - Nursing Vital Signs Nursing Vital Signs: Initial Vital Signs Temperature 97.9 F 09/21/22 16:33 Pulse Rate 82 09/21/22 16:33 Respiratory Rate 18 09/21/22 16:33 Blood Pressure 106/61 09/21/22 16:33 O2 Sat by Pulse Oximetry 100 09/21/22 16:33 Pain Scale Pain Intensity 3 - Physical Exam General Appearance: no apparent distress, alert Eye Exam: PERRL/EOMI, eyes nml inspection Ears, Nose, Throat Exam: normal ENT inspection, TMs normal, pharynx normal, moist mucous membranes Neck Exam: normal inspection, non-tender, supple, full range of motion Respiratory Exam: normal breath sounds, lungs clear, airway intact, No respiratory distress Cardiovascular Exam: regular rate/rhythm, normal heart sounds, normal peripheral pulses Gastrointestinal/Abdomen Exam: soft, normal bowel sounds, tenderness (Tenderness palpation lower abdomen.), distention, No mass Back Exam: normal inspection, normal range of motion, No CVA tenderness, No vertebral tenderness Extremity Exam: normal inspection, normal range of motion, pelvis stable, other (Chronic bilateral lower extremity venous stasis ulcers. Wounds appear to be healing well they are not infected bilateral lower extremities are neurovascular intact distally. Compartments are soft. Cap refill less than 2 seconds) Neurologic Exam: alert, oriented x 3, cooperative, normal mood/affect, nml cerebellar function, nml station & gait, sensation nml, No motor deficits Skin Exam: normal color, warm, dry, No rash Lymphatic Exam: No adenopathy SpO2 Interpretation: normal SpO2: 100 O2 Delivery: Room Air - Course Nursing assessment & vital signs reviewed: Yes - CT Exams Abdomen/Pelvis CT Interpretation: Tele-radiologist Report (Lung granuloma, esophagitis, duodenitis, moderate rectal fecal impaction, distended gallbladder, cholelithiasis, cirrhotic liver, splenomegaly, portal hypertension, right inguinal hernia) Ordered Tests: Active Orders 24 hr Category Date Time Status IV Insertion STAT Care 09/21/22 16:43 Completed ABDOMEN AND PELVIS W/0 CONTRAS [CT] Stat Exams 09/21/22 16:46 Completed CBC W DIFF Stat Lab 09/21/22 17:45 Completed CMP Stat Lab 09/21/22 17:45 Completed CULTURE,URINE Stat Lab 09/21/22 17:03 Received POCT GLUCOSE Stat Lab 09/21/22 20:42 Completed TROPONIN Q4H Lab 09/21/22 17:45 Completed UA W/RFX UR CULTURE Stat Lab 09/21/22 16:58 Completed Medication Summary Discontinued Medications Generic Name Dose Route Start Last Admin Trade Name Shivani PRN Reason Stop Dose Admin Ketorolac Tromethamine 30 mg 09/21/22 19:13 09/21/22 19:16 Ketorolac Tromethamine 30 Mg/Ml Inj IV 09/21/22 19:14 30 mg STAT ONE Administration Ketorolac Tromethamine Confirm 09/21/22 19:15 Ketorolac Tromethamine 30 Mg/Ml Inj Administered 09/21/22 19:16 Dose 30 mg .ROUTE .STK-MED ONE Lab/Rad Data: Laboratory Result Diagrams 09/21/22 17:45 09/21/22 17:45 Laboratory Results 09/21/22 09/21/22 09/21/22 Range/Units 20:42 17:45 17:45 WBC (4.0-10.5) x10^3/uL RBC (4.1-5.6) x10^6/uL Hgb (12.5-18.0) g/dL Hct (42-50) % MCV (78-100) fL MCH (26-32) pg MCHC (32-36) g/dL RDW (11.5-14.0) % Plt Count (150-450) x10^3/uL MPV (7.5-11.0) fL Gran % (36.0-66.0) % Immature Gran % (Auto) (0.00-0.4) % Nucleat RBC Rel Count (0.00-0.1) % Eos # (Auto) (0-0.5) x10^3/uL Immature Gran # (Auto) (0.00-0.03) x10^3u/L Absolute Lymphs (auto) (1.0-4.6) x10^3/uL Absolute Monos (auto) (0.0-1.3) x10^3/uL Absolute Nucleated RBC (0.00-0.01) x10^3u/L Lymphocytes % (24.0-44.0) % Monocytes % (0.0-12.0) % Eosinophils % (0.00-5.0) % Basophils % (0.0-0.4) % Absolute Granulocytes (1.4-6.9) x10^3/uL Basophils # (0-0.4) x10^3/uL Sodium 131 L (137-145) mmol/L Potassium 4.8 (3.5-5.1) mmol/L Chloride 102 (98-107) mmol/L Carbon Dioxide 22 (22-30) mmol/L Anion Gap 11.6 (5-15) MEQ/L BUN 33 H (9-20) mg/dL Creatinine 2.03 H (0.66-1.25) mg/dL Estimated GFR 35.5 ML/MIN Glucose 496 H (74-106) mg/dL POC Glucometer 392 H (74 to 106) mg/dL Calcium 9.3 (8.4-10.2) mg/dL Total Bilirubin 1.40 H (0.2-1.3) mg/dL AST 112 H (17-59) U/L ALT 68 H (0-50) U/L Alkaline Phosphatase 337 H (38-126) U/L Troponin I < 0.012 (0.000-0.034) ng/mL Serum Total Protein 7.4 (6.3-8.2) g/dL Albumin 3.1 L (3.5-5.0) g/dL Urine Color (Yellow) Urine Appearance (Clear) Urine pH (4.6-8.0) Ur Specific [place] (1.005-1.030) Urine Protein (Negative) Urine Glucose (UA) (Negative) mg/dL Urine Ketones (Negative) Urine Blood (Negative) Urine Nitrite (Negative) Urine Bilirubin (Negative) Urine Urobilinogen (0.2) mg/dL Ur Leukocyte Esterase (Negative) U Hyaline Cast (Auto) (0-2) /LPF Urine Microscopic RBC (0-5) /HPF Urine Microscopic WBC (0-5) /HPF Ur Epithelial Cells (None Seen) /HPF Urine Bacteria (None Seen) /HPF Urine Culture Reflexed (NO) Slides for Path Review 09/21/22 09/21/22 Range/Units 17:45 16:58 WBC 5.0 (4.0-10.5) x10^3/uL RBC 4.00 L (4.1-5.6) x10^6/uL Hgb 12.0 L (12.5-18.0) g/dL Hct 36.0 L (42-50) % MCV 90.0 (78-100) fL MCH 30.0 (26-32) pg MCHC 33.3 (32-36) g/dL RDW 13.4 (11.5-14.0) % Plt Count 51 L (150-450) x10^3/uL MPV 11.7 H (7.5-11.0) fL Gran % 83.4 H (36.0-66.0) % Immature Gran % (Auto) 0.2 (0.00-0.4) % Nucleat RBC Rel Count 0.0 (0.00-0.1) % Eos # (Auto) 0.05 (0-0.5) x10^3/uL Immature Gran # (Auto) 0.01 (0.00-0.03) x10^3u/L Absolute Lymphs (auto) 0.35 L (1.0-4.6) x10^3/uL Absolute Monos (auto) 0.40 (0.0-1.3) x10^3/uL Absolute Nucleated RBC 0.00 (0.00-0.01) x10^3u/L Lymphocytes % 7.0 L (24.0-44.0) % Monocytes % 8.0 (0.0-12.0) % Eosinophils % 1.0 (0.00-5.0) % Basophils % 0.4 (0.0-0.4) % Absolute Granulocytes 4.18 (1.4-6.9) x10^3/uL Basophils # 0.02 (0-0.4) x10^3/uL Sodium (137-145) mmol/L Potassium (3.5-5.1) mmol/L Chloride (98-107) mmol/L Carbon Dioxide (22-30) mmol/L Anion Gap (5-15) MEQ/L BUN (9-20) mg/dL Creatinine (0.66-1.25) mg/dL Estimated GFR ML/MIN Glucose (74-106) mg/dL POC Glucometer (74 to 106) mg/dL Calcium (8.4-10.2) mg/dL Total Bilirubin (0.2-1.3) mg/dL AST (17-59) U/L ALT (0-50) U/L Alkaline Phosphatase (38-126) U/L Troponin I (0.000-0.034) ng/mL Serum Total Protein (6.3-8.2) g/dL Albumin (3.5-5.0) g/dL Urine Color Yellow (Yellow) Urine Appearance Clear (Clear) Urine pH 6.5 (4.6-8.0) Ur Specific [place] 1.020 (1.005-1.030) Urine Protein 30 (Negative) Urine Glucose (UA) >=1000 A (Negative) mg/dL Urine Ketones Negative (Negative) Urine Blood Small A (Negative) Urine Nitrite Negative (Negative) Urine Bilirubin Negative (Negative) Urine Urobilinogen 0.2 (0.2) mg/dL Ur Leukocyte Esterase Negative (Negative) U Hyaline Cast (Auto) NONE SEEN (0-2) /LPF Urine Microscopic RBC 0-2 (0-5) /HPF Urine Microscopic WBC 0-2 (0-5) /HPF Ur Epithelial Cells None Seen (None Seen) /HPF Urine Bacteria None Seen (None Seen) /HPF Urine Culture Reflexed ORDERED SEPARATELY (NO) Slides for Path Review YES - Progress Progress: improved Progress Note: Patient is a 61-year-old male presents to our ED for evaluation of lower abdominal pain. Patient has history of hepatitis C and cirrhosis. Patient states that he used alcohol frequently but states he stopped sometime ago. Patient's complaints were acute. Complexity of complaint was moderate. Physical exam findings revealed lower abdominal tenderness. Suprapubic region was full to palpation. Complexity of complaint was moderate. Work-up entailed CT abdomen pelvis, CBC, CMP, COVID study, urine culture, [id number] glucose, troponin, urinalysis' Work-up revealed a lung granuloma. Patient has an esophagitis with a duodenitis. CT scan revealed esophagitis and duodenitis. Patient had no epigastric or mid abdominal pain. A prescription for Protonix was forwarded to patient's pharmacy. CT scan also revealed fecal impaction. Patient had a very large bowel movement in our ED. After the bowel movement patient's abdominal pain resolved. Patient was requesting discharge. Patient had hyperglycemia and glucosuria. Patient states that his glucose typically runs 600. Patient's glucose improved to 392. No anion gap acidosis. Patient declined admission for and/or treatment for hyperglycemia. Patient requested discharge home. Troponins were negative. Patient has a history of liver cirrhosis hepatitis C and alcohol use. Portal hypertension was observed on his CAT scan. Patient has a history of chronic renal sufficiency. Patient's creatinine of 2.0 was in line with patient's past medical history. Thrombocytopenia observed. Patient has history of thrombocytopenia. Platelet 51. No risk for spontaneous bleeding with this platelet level. Sodium 131. Patient has hyponatremia chronically. Sodium corrected for glucose is 135. Patient had urinary retention in our ED. Patient received a Riley catheter and 600 cc of urine immediately expressed. However patient did not want to retain the catheter. Patient refused and requested we remove it. Catheter was removed. Toradol administered for pain control early in course of treatment. Patient declined morphine. Case discussed with Dr. Ponce. We feel these findings are chronic. In light of the fact that patient asymptomatic after bowel movement and patient requested discharge patient discharged per his request. He agrees to follow-up with his primary care doctor within 48 hours for evaluation. A prescription for Protonix forwarded to patient's pharmacy. Level of EM service provided was moderate. Complexity of problem addressed was moderate. Complexity of data reviewed was moderate. Risks of complication and no risk of morbidity/mortality of patient management is low. No critical care time. Patient served as an independent historian however his also contributed to the HPI. Time spent discharging patient approximately 15 minutes. Please observe the discharge diagnoses at the end of this note. Patient voiced no other complaints or concerns at this time. voices no other complaints or concerns at this time. They both request discharge at this time. Will discharge according to their request. Portions of this note were created with voice recognition technology. There may be grammatical, spelling, punctuation or sound alike errors Discussed with Dr.: Elisa Will see patient in: office Counseled pt/family regarding: lab results, diagnosis, rad results - Departure Departure Disposition: Home Clinical Impression: DM2 (diabetes mellitus, type 2), Lung granuloma, Esophagitis, Duodenitis, Fecal impaction in rectum, DISTENDED GALLBLADDER, Cholelithiasis, Cirrhosis of liver, Splenomegaly, Portal hypertension, Inguinal hernia, Glucosuria, Thrombocytopenia, Hyponatremia, Chronic renal insufficiency, Hyperglycemia, Total bilirubin, elevated, Transaminitis, Elevated alkaline phosphatase level, Urinary retention Condition: Stable Critical Care Time: No Referrals: IAN CHRISTENSEN [Primary Care Provider] - Follow up/PCP as directed Instructions: Constipation, Adult (DC) Additional Instructions: Discharge/Care Plan ZHEN STRICKLAND was seen on 09/21/22 in the Emergency Room. The patient was counseled regarding Diagnosis,Lab results, Imaging studies, need for follow up and when to return to the Emergency Room. Prescriptions given: Discharge Note I have spoken with the patient and/or caregivers. I have explained the patient's condition, diagnosis and treatment plan based on the information available to me at this time. I have answered the patient's and/or caregiver's questions and addressed any concerns. The patient and/or caregivers have as good understanding of the patient's diagnosis, condition and treatment plan as can be expected at this point. The vital signs have been stable. The patient's condition is stable and appropriate for discharge from the emergency department. The patient will pursue further outpatient evaluation with the primary care physician or other designated or consulting physician as outlined in the discharge instructions. The patient and/or caregivers are agreeable to this plan of care and follow-up instructions have been explained in detail. The patient and/or caregivers have received these instruction. The patient/and or caregivers are aware that any significant change in condition or worsening of symptoms should prompt an immediate return to this or the closest emergency department or call 911. Prescriptions: PANTOPRAZOLE 40 mg Tablet [Protonix 40MG Tablet] 40 mg PO QAM 14 Days #14 tab
[2022-09-21 17:16] LABS: ADD URINE CULTURE? ORDERED SEPARATELY (NO); Appearance Clear (Clear); Bacteria None Seen /HPF (None Seen); Bilirubin Negative (Negative); Blood Small (Negative); Epithelial Cells None Seen /HPF (None Seen); Glucose, Urine >=1000 mg/dL (Negative); Hyaline Casts NONE SEEN /LPF (0-2); Ketones Negative (Negative); Leukocyte Esterase Negative (Negative); Nitrite Negative (Negative); Ph 6.5 (4.6-8.0); Protein,Urine Dip 30 (Negative); RBC 0-2 /HPF (0-5); Urobilinogen 0.2 mg/dL (0.2); WBC 0-2 /HPF (0-5)
--- NOTE | 2022-09-21 17:27 | XRAY ---
Indication: Lower abdomen pain and constipation. Multiple contiguous axial images obtained through the abdomen and pelvis without contrast. Comparison: March 28, 2021 Lung bases remain clear. Incidental small right infrahilar and tiny right lower lobe calcified granuloma. Heart not enlarged. Distal esophagus again demonstrates circumferential wall thickening favoring esophagitis. Noncontrasted stomach and bowel loops nonobstructed. Distal descending duodenum demonstrates new circumferential wall thickening, possibly duodenitis. Normal appendix. New mild diffuse scattered colonic fecal debris throughout with moderate rectal fecal impaction. Again mildly distended gallbladder with a few new tiny gallstones in the dependent portion, largest 6 mm. No abnormal biliary distention. The remaining cirrhotic liver, 17.5 cm splenomegaly, enlarged main portal vein, and mid mesenteric congestion/stranding. No free fluid/air. Again a few nonobstructing bilateral renal micro-calculi again largest right lower pole measuring 8 mm. Urinary bladder near empty with new Riley balloon catheter in situ. Remaining pancreas, adrenal glands, kidneys, and ureters are unremarkable for noncontrast exam. Again minimal scattered aortoiliac calcifications without AAA. Osseous structures again demonstrates osteopenia, multilevel remote appearing T12/L2-L4 superior endplate fractures, and small multilevel thoracic Schmorl nodes. Stable small fatty right inguinal hernia. Impression: 1. New mild diffuse fecal stasis and moderate rectal fecal impaction. 2. New duodenal circumferential wall thickening. Rule out duodenitis. 3. Mild distended gallbladder with new tiny gallstones. 4. Again cirrhotic liver with portal vein hypertension, splenomegaly, and mesenteric congestion/stranding. No ascites. 5. Again chronic findings including esophagitis, nonobstructing bilateral renal micro-calculi, chronic bony findings, arteriosclerotic disease, and fatty right inguinal hernia.
[2022-09-21 17:55] LABS: Absolute Neutrophil Ct (ANC) 4.18 x10^3/uL (1.4-6.9); BASOPHIL % 0.4 % (0.0-0.4); Basophil (Absolute #) 0.02 x10^3/uL (0-0.4); Eosinophil (Absolute #) 0.05 x10^3/uL (0-0.5); IMMATURE GRAN # 0.01 x10^3u/L (0.00-0.03); IMMATURE GRAN % 0.2 % (0.00-0.4); Lymphocyte (Absolute #) 0.35 x10^3/uL (1.0-4.6); Mean Corpuscular Hgb Concent. 33.3 g/dL (32-36); Mean Platelet Volume 11.7 fL (7.5-11.0); Neutrophil % 83.4 % (36.0-66.0); Platelet Count 51 x10^3/uL (150-450); Red Cell Distribution Width 13.4 % (11.5-14.0)
[2022-09-21 18:09] LABS: ALBUMIN 3.1 g/dL (3.5-5.0); ANION GAP 11.6 MEQ/L (5-15); BILIRUBIN,TOTAL 1.4 mg/dL (0.2-1.3); Calcium 9.3 mg/dL (8.4-10.2); Creatinine 1 2.03 mg/dL (0.66-1.25); EST GLOMERULAR FILTRATION RATE 35.5 ML/MIN; Potassium 4.8 mmol/L (3.5-5.1); Total Protein 7.4 g/dL (6.3-8.2)
[2022-09-21 18:43] LABS: Slide Review 1 YES
[2022-09-21] MEDS ORDERED: TORAdol 30 mg Injection IV ONE (19:13)
[2022-09-21] MEDS ORDERED: TORAdol 30 mg Injection ONE (19:15)
[2022-09-21 20:13] VITALS: BP 149/87
[2022-09-21 20:47] VITALS: PULSE 72
[2022-09-22 02:11] VITALS: O2SAT 100
== END 2022-09-21 20:51 | disposition home or self-care (01) ==
LOC: ED 16:14
DX: E11.65 Type 2 diabetes mellitus with hyperglycemia (principal); E11.22 Type 2 diabetes mellitus with diabetic chronic kidney disease; J84.10 Pulmonary fibrosis, unspecified; K20.90 Esophagitis, unspecified without bleeding; K29.80 Duodenitis without bleeding; K56.41 Fecal impaction; K82.8 Other specified diseases of gallbladder; K80.20 Calculus of gallbladder without cholecystitis without obstruction; K74.60 Unspecified cirrhosis of liver; R16.1 Splenomegaly, not elsewhere classified; K76.6 Portal hypertension; K40.90 Unilateral inguinal hernia, without obstruction or gangrene, not specified as recurrent; R81 Glycosuria; D69.6 Thrombocytopenia, unspecified; E87.1 Hypo-osmolality and hyponatremia; N18.9 Chronic kidney disease, unspecified; E80.6 Other disorders of bilirubin metabolism; R74.01 Elevation of levels of liver transaminase levels; R74.8 Abnormal levels of other serum enzymes; R33.9 Retention of urine, unspecified
CPT/HCPCS: 36000; 36415; 51702; 74176; 80053; 81001; 82947; 84484; 85025; 87086; 96374; 99284; J1885

== ENCOUNTER 2022-10-16 06:43 | Emergency (ER) | payer OTHER, SELFPAY ==
[2022-10-16] MEDS ORDERED: Zofran 4 MG/2 ML VIAL IV ONE (07:15)
[2022-10-16] MEDS ORDERED: MORPHINE SULFATE 2 MG INJ IV ONE (07:15)
[2022-10-16] MEDS ORDERED: Zofran 4 MG/2 ML VIAL ONE (07:38)
[2022-10-16] MEDS ORDERED: MORPHINE SULFATE 2 MG INJ ONE (07:38)
[2022-10-16] MEDS: Sodium Chloride 0.9% 1000 ML 1,000 ML IV SCH ×2 (07:43→16:03)
[2022-10-16 07:51] LABS: Absolute Neutrophil Ct (ANC) 4.47 x10^3/uL (1.4-6.9); BASOPHIL % 0.2 % (0.0-0.4); Basophil (Absolute #) 0.01 x10^3/uL (0-0.4); Eosinophil % 1.1 % (0.00-5.0); Eosinophil (Absolute #) 0.06 x10^3/uL (0-0.5); Hematocrit 33.9 % (42-50); Hemoglobin 11.3 g/dL (12.5-18.0); IMMATURE GRAN # 0.02 x10^3u/L (0.00-0.03); IMMATURE GRAN % 0.4 % (0.00-0.4); Lymphocyte (Absolute #) 0.46 x10^3/uL (1.0-4.6); Lymphocytes % 8.1 % (24.0-44.0); Mean Cell Volume 91.9 fL (78-100); Mean Corpuscular Hemoglobin 30.6 pg (26-32); Mean Corpuscular Hgb Concent. 33.3 g/dL (32-36); Monocyte (Absolute #) 0.65 x10^3/uL (0.0-1.3); Monocytes % 11.5 % (0.0-12.0); Neutrophil % 78.7 % (36.0-66.0); Platelet Count 71 x10^3/uL (150-450); Red Blood Count 3.69 x10^6/uL (4.1-5.6); Red Cell Distribution Width 13.3 % (11.5-14.0); White Blood Count 5.7 x10^3/uL (4.0-10.5)
[2022-10-16 08:03] LABS: ALBUMIN 2.8 g/dL (3.5-5.0); ANION GAP 13.3 MEQ/L (5-15); BILIRUBIN,TOTAL 2.2 mg/dL (0.2-1.3); Calcium 8.1 mg/dL (8.4-10.2); Creatinine 1 3.81 mg/dL (0.66-1.25); EST GLOMERULAR FILTRATION RATE 17.1 ML/MIN; Potassium 4.5 mmol/L (3.5-5.1); Total Protein 7.2 g/dL (6.3-8.2)
[2022-10-16 08:14] LABS: Slide Review 1 YES
--- NOTE | 2022-10-16 08:17 | ERPHSYRPT ---
- History of Present Illness Time Seen by Provider: 10/16/22 08:06 Historian: patient Exam Limitations: no limitations Patient Subjective Stated Complaint: pt states he was in last month with a bowel obstruction. states he thinks hes obstructed again. last bm was on saturday and has pain in lt lower abd. Triage Nursing Assessment: pt alert and oriented, answers questions approp. pt ambulates into room with slow steady gait noted. respirations nonlabored. skin warm and dry. abd tender to palpation, bowel sounds hypo x4 quads. pt reports passing flatus. Physician History: Patient is a 62-year-old male presents to our emergency department for evaluation of abdominal pain. Pain started approximately 2 days ago. Patient states pain has been progressive. Urine output decreased. Patient believes he may be obstructed. Last bowel movement was Saturday. Abdominal pain is primary in the left lower quadrant. Patient was in our ED on September 21 for similar symptoms. Patient was found to have urinary retention. CAT scan revealed esophagitis and duodenitis. Patient also had fecal impaction. While in our ED a Riley catheter was placed. Bladder was drained. Patient had a large bowel movement. Patient was asymptomatic and was discharged home. Patient symptoms are mild to moderate in intensity. No specific worsening improving factors. Patient voices no other complaints or concerns at this time. Portions of this note were created with voice recognition technology. There may be grammatical, spelling, punctuation or sound alike errors Timing/Duration: day(s) (2 days) Activities at Onset: none Quality: aching Abdominal Pain Onset Location: LLQ Pain Radiation: no radiation Severity of Pain-Max: moderate Severity of Pain-Current: mild Modifying Factors: Improves With: nothing Associated Symptoms: denies symptoms, No testicular pain Previous symptoms: same symptoms as today Allergies/Adverse Reactions: No Known Drug Allergies Allergy (Verified 10/16/22 07:08) Home Medications: Insulin Glargine,Hum.rec.anlog [Basaglar Kwikpen U-100] 40 unit SQ DAILY 05/21/22 [History] Insulin Lispro [Humalog] 20 unit SQ AC 05/21/22 [History] Lisinopril 5 mg [Zestril 5 MG] 5 mg PO DAILY 10/16/22 [History] Hx Tetanus, Diphtheria Vaccination/Date Given: Yes Hx Influenza Vaccination/Date Given: No Hx Pneumococcal Vaccination/Date Given: No Immunizations Up to Date: Yes Travel Risk - International Travel Have you traveled outside of the country in past 3 weeks: No - Coronavirus Screening Are you exhibiting any of the following symptoms?: No Close contact with a COVID-19 positive Pt in past 14-21 Days: No - Vaccine Status Have you recieved a Covid-19 vaccination: No - Review of Systems Constitutional: No Symptoms, No Fever, No Chills Eyes: No Symptoms Ears, Nose, & Throat: No Symptoms Respiratory: No Symptoms, No Cough, No Dyspnea Cardiac: No Symptoms, No Chest Pain, No Edema, No Syncope Abdominal/Gastrointestinal: No Symptoms, No Abdominal Pain, No Nausea, No Vomiting, No Diarrhea Genitourinary Symptoms: No Symptoms, No Dysuria Musculoskeletal: No Symptoms, No Back Pain, No Neck Pain Skin: No Symptoms, No Rash Neurological: No Symptoms, No Dizziness, No Focal Weakness, No Sensory Changes Psychological: No Symptoms Endocrine: No Symptoms Hematologic/Lymphatic: No Symptoms Immunological/Allergic: No Symptoms All Other Systems: Reviewed and Negative - Past Medical History Pertinent Past Medical History: Yes Neurological History: No Pertinent History ENT History: No Pertinent History Cardiac History: No Pertinent History Respiratory History: No Pertinent History Endocrine Medical History: Diabetes Type II Musculoskeletal History: Fractures GI Medical History: Cirrhosis, Hepatitis History: Renal Disease Psycho-Social History: No Pertinent History Male Reproductive Disorders: No Pertinent History Other Medical History: "hole in a kidney", Hepititis C but has been treated and cured. fell and broke back that didn't require surgery. 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 - Past Surgical History Past Surgical History: Yes Neuro Surgical History: No Pertinent History Cardiac: No Pertinent History Respiratory: No Pertinent History Gastrointestinal: No Pertinent History Genitourinary: No Pertinent History Musculoskeletal: No Pertinent History Male Surgical History: No Pertinent History Other Surgical History: liver biopsy, finger, scrotal abscess - Social History Smoking Status: Former smoker Exposure to second hand smoke: No Drug Use: none Patient Lives Alone: No Significant Family History: no pertinent family hx - Nursing Vital Signs Nursing Vital Signs: Initial Vital Signs Temperature 98.4 F 10/16/22 06:49 Pulse Rate 86 10/16/22 06:49 Respiratory Rate 16 10/16/22 06:49 Blood Pressure 136/77 10/16/22 06:49 O2 Sat by Pulse Oximetry 99 10/16/22 06:49 Pain Scale Pain Intensity 0 - Physical Exam General Appearance: no apparent distress, alert Eye Exam: PERRL/EOMI, eyes nml inspection Ears, Nose, Throat Exam: normal ENT inspection, TMs normal, pharynx normal, moist mucous membranes Neck Exam: normal inspection, non-tender, supple, full range of motion Respiratory Exam: normal breath sounds, lungs clear, airway intact, No respiratory distress Cardiovascular Exam: regular rate/rhythm, normal heart sounds, normal peripheral pulses Gastrointestinal/Abdomen Exam: soft, tenderness (Tenderness to palpation left lower quadrant. No guarding or rebound), No mass, No guarding, No rebound Back Exam: normal inspection, normal range of motion, No CVA tenderness, No vertebral tenderness Extremity Exam: normal inspection, normal range of motion, pelvis stable Neurologic Exam: alert, oriented x 3, cooperative, normal mood/affect, sensation nml, No motor deficits Skin Exam: normal color, warm, dry Lymphatic Exam: No adenopathy SpO2 Interpretation: normal SpO2: 99 O2 Delivery: Room Air - Course Nursing assessment & vital signs reviewed: Yes - CT Exams Abdomen/Pelvis CT Interpretation: Tele-radiologist Report (CT scan reveals calcified lung granuloma, esophagitis, duodenitis, ascites, cirrhotic liver, splenomegaly, distended gallbladder, cholelithiasis, nephrolithiasis, renal cyst, 3 to 4 mm obstructive uropathy left at level of L5 hydronephrosis, aortic calcification, small right fatty inguinal hernia) Ordered Tests: Medication Summary Discontinued Medications Generic Name Dose Route Start Last Admin Trade Name Freq PRN Reason Stop Dose Admin Diphenhydramine HCl 25 mg 10/16/22 18:58 10/16/22 19:01 Diphenhydramine Hcl 50 Mg/Ml Vial IV 10/16/22 18:59 25 mg STAT ONE Administration Diphenhydramine HCl Confirm 10/16/22 19:00 Diphenhydramine Hcl 50 Mg/Ml Vial Administered 10/16/22 19:01 Dose 50 mg .ROUTE .STK-MED ONE Sodium Chloride 1,000 mls @ 100 mls/hr 10/16/22 07:15 10/16/22 16:03 Sodium Chloride 0.9% 1000 Ml IV 11/15/22 07:14 100 mls/hr .Q10H BRITTANY Administration Ceftriaxone Sodium/Dextrose 1 g in 50 mls @ 100 mls/hr 10/16/22 10:03 10/16/22 10:54 Rocephin 1 Gm-D5w 50 Ml Bag IV 10/16/22 10:32 Infused STAT STA Infusion Ceftriaxone Sodium/Dextrose Confirm 10/16/22 10:10 Rocephin 1 Gm-D5w 50 Ml Bag Administered 10/16/22 10:11 Dose 1 g in 50 mls @ ud IV .STK-MED ONE Sodium Chloride 1,000 mls @ 100 mls/hr 10/16/22 16:00 10/16/22 16:04 Sodium Chloride 0.9% 1000 Ml IV 11/15/22 15:59 Not Given .Q10H BRITTANY Morphine Sulfate 2 mg 10/16/22 07:15 10/16/22 07:40 Morphine Sulfate 2 Mg/Ml Inj IV 10/16/22 07:16 2 mg STAT ONE Administration Morphine Sulfate Confirm 10/16/22 07:38 Morphine Sulfate 2 Mg/Ml Inj Administered 10/16/22 07:39 Dose 2 mg .ROUTE .STK-MED ONE Morphine Sulfate 4 mg 10/16/22 10:08 10/16/22 10:12 Morphine Sulfate 4 Mg/Ml Injection IV 10/16/22 10:09 4 mg STAT ONE Administration Morphine Sulfate Confirm 10/16/22 10:10 Morphine Sulfate 4 Mg/Ml Injection Administered 10/16/22 10:11 Dose 4 mg .ROUTE .STK-MED ONE Morphine Sulfate 4 mg 10/16/22 13:01 10/16/22 13:10 Morphine Sulfate 4 Mg/Ml Injection IV 10/16/22 13:02 4 mg STAT ONE Administration Morphine Sulfate Confirm 10/16/22 13:09 Morphine Sulfate 4 Mg/Ml Injection Administered 10/16/22 13:10 Dose 4 mg .ROUTE .STK-MED ONE Ondansetron HCl 4 mg 10/16/22 07:15 10/16/22 07:40 Ondansetron Hcl 4 Mg/2 Ml Vial IV 10/16/22 07:16 4 mg STAT ONE Administration Ondansetron HCl Confirm 10/16/22 07:38 Ondansetron Hcl 4 Mg/2 Ml Vial Administered 10/16/22 07:39 Dose 4 mg .ROUTE .STK-MED ONE Lab/Rad Data: Laboratory Result Diagrams 10/16/22 07:50 10/16/22 07:50 Laboratory Results 10/16/22 10/16/22 10/16/22 Range/Units 18:47 15:24 11:38 WBC (4.0-10.5) x10^3/uL RBC (4.1-5.6) x10^6/uL Hgb (12.5-18.0) g/dL Hct (42-50) % MCV (78-100) fL MCH (26-32) pg MCHC (32-36) g/dL RDW (11.5-14.0) % Plt Count (150-450) x10^3/uL MPV (7.5-11.0) fL Gran % (36.0-66.0) % Immature Gran % (Auto) (0.00-0.4) % Nucleat RBC Rel Count (0.00-0.1) % Eos # (Auto) (0-0.5) x10^3/uL Immature Gran # (Auto) (0.00-0.03) x10^3u/L Absolute Lymphs (auto) (1.0-4.6) x10^3/uL Absolute Monos (auto) (0.0-1.3) x10^3/uL Absolute Nucleated RBC (0.00-0.01) x10^3u/L Lymphocytes % (24.0-44.0) % Monocytes % (0.0-12.0) % Eosinophils % (0.00-5.0) % Basophils % (0.0-0.4) % Absolute Granulocytes (1.4-6.9) x10^3/uL Basophils # (0-0.4) x10^3/uL Sodium (137-145) mmol/L Potassium (3.5-5.1) mmol/L Chloride (98-107) mmol/L Carbon Dioxide (22-30) mmol/L Anion Gap (5-15) MEQ/L BUN (9-20) mg/dL Creatinine (0.66-1.25) mg/dL Estimated GFR ML/MIN Glucose (74-106) mg/dL POC Glucometer 294 H 332 H (74 to 106) mg/dL Calcium (8.4-10.2) mg/dL Total Bilirubin (0.2-1.3) mg/dL AST (17-59) U/L ALT (0-50) U/L Alkaline Phosphatase (38-126) U/L Troponin I < 0.012 (0.000-0.034) ng/mL Serum Total Protein (6.3-8.2) g/dL Albumin (3.5-5.0) g/dL Lipase (23-300) U/L Urine Color (Yellow) Urine Appearance (Clear) Urine pH (4.6-8.0) Ur Specific [place] (1.005-1.030) Urine Protein (Negative) Urine Glucose (UA) (Negative) mg/dL Urine Ketones (Negative) Urine Blood (Negative) Urine Nitrite (Negative) Urine Bilirubin (Negative) Urine Urobilinogen (0.2) mg/dL Ur Leukocyte Esterase (Negative) U Hyaline Cast (Auto) (0-2) /LPF Urine Microscopic RBC (0-5) /HPF Urine Microscopic WBC (0-5) /HPF Ur Epithelial Cells (None Seen) /HPF Urine Bacteria (None Seen) /HPF Urine Culture Reflexed (NO) Influenza Type A Ag (NEGATIVE) Influenza Type B Ag (NEGATIVE) RSV (PCR) (Negative) SARS-CoV-2 (PCR) (NEGATIVE) Slides for Path Review 10/16/22 10/16/22 10/16/22 Range/Units 10:47 08:55 08:34 WBC (4.0-10.5) x10^3/uL RBC (4.1-5.6) x10^6/uL Hgb (12.5-18.0) g/dL Hct (42-50) % MCV (78-100) fL MCH (26-32) pg MCHC (32-36) g/dL RDW (11.5-14.0) % Plt Count (150-450) x10^3/uL MPV (7.5-11.0) fL Gran % (36.0-66.0) % Immature Gran % (Auto) (0.00-0.4) % Nucleat RBC Rel Count (0.00-0.1) % Eos # (Auto) (0-0.5) x10^3/uL Immature Gran # (Auto) (0.00-0.03) x10^3u/L Absolute Lymphs (auto) (1.0-4.6) x10^3/uL Absolute Monos (auto) (0.0-1.3) x10^3/uL Absolute Nucleated RBC (0.00-0.01) x10^3u/L Lymphocytes % (24.0-44.0) % Monocytes % (0.0-12.0) % Eosinophils % (0.00-5.0) % Basophils % (0.0-0.4) % Absolute Granulocytes (1.4-6.9) x10^3/uL Basophils # (0-0.4) x10^3/uL Sodium (137-145) mmol/L Potassium (3.5-5.1) mmol/L Chloride (98-107) mmol/L Carbon Dioxide (22-30) mmol/L Anion Gap (5-15) MEQ/L BUN (9-20) mg/dL Creatinine (0.66-1.25) mg/dL Estimated GFR ML/MIN Glucose (74-106) mg/dL POC Glucometer (74 to 106) mg/dL Calcium (8.4-10.2) mg/dL Total Bilirubin (0.2-1.3) mg/dL AST (17-59) U/L ALT (0-50) U/L Alkaline Phosphatase (38-126) U/L Troponin I < 0.012 (0.000-0.034) ng/mL Serum Total Protein (6.3-8.2) g/dL Albumin (3.5-5.0) g/dL Lipase (23-300) U/L Urine Color Yellow (Yellow) Urine Appearance Clear (Clear) Urine pH 5.5 (4.6-8.0) Ur Specific [place] 1.020 (1.005-1.030) Urine Protein 100 A (Negative) Urine Glucose (UA) >=1000 A (Negative) mg/dL Urine Ketones Negative (Negative) Urine Blood Small A (Negative) Urine Nitrite Negative (Negative) Urine Bilirubin Negative (Negative) Urine Urobilinogen 1.0 A (0.2) mg/dL Ur Leukocyte Esterase Small A (Negative) U Hyaline Cast (Auto) NONE SEEN (0-2) /LPF Urine Microscopic RBC 0-2 (0-5) /HPF Urine Microscopic WBC 21-50 A (0-5) /HPF Ur Epithelial Cells None Seen (None Seen) /HPF Urine Bacteria None Seen (None Seen) /HPF Urine Culture Reflexed YES (NO) Influenza Type A Ag NEGATIVE (NEGATIVE) Influenza Type B Ag NEGATIVE (NEGATIVE) RSV (PCR) NEGATIVE (Negative) SARS-CoV-2 (PCR) NEGATIVE (NEGATIVE) Slides for Path Review 10/16/22 10/16/22 10/16/22 Range/Units 07:50 07:50 07:50 WBC 5.7 (4.0-10.5) x10^3/uL RBC 3.69 L (4.1-5.6) x10^6/uL Hgb 11.3 L (12.5-18.0) g/dL Hct 33.9 L (42-50) % MCV 91.9 (78-100) fL MCH 30.6 (26-32) pg MCHC 33.3 (32-36) g/dL RDW 13.3 (11.5-14.0) % Plt Count 71 L (150-450) x10^3/uL MPV 11.0 (7.5-11.0) fL Gran % 78.7 H (36.0-66.0) % Immature Gran % (Auto) 0.4 (0.00-0.4) % Nucleat RBC Rel Count 0.0 (0.00-0.1) % Eos # (Auto) 0.06 (0-0.5) x10^3/uL Immature Gran # (Auto) 0.02 (0.00-0.03) x10^3u/L Absolute Lymphs (auto) 0.46 L (1.0-4.6) x10^3/uL Absolute Monos (auto) 0.65 (0.0-1.3) x10^3/uL Absolute Nucleated RBC 0.00 (0.00-0.01) x10^3u/L Lymphocytes % 8.1 L (24.0-44.0) % Monocytes % 11.5 (0.0-12.0) % Eosinophils % 1.1 (0.00-5.0) % Basophils % 0.2 (0.0-0.4) % Absolute Granulocytes 4.47 (1.4-6.9) x10^3/uL Basophils # 0.01 (0-0.4) x10^3/uL Sodium 131 L (137-145) mmol/L Potassium 4.5 (3.5-5.1) mmol/L Chloride 102 (98-107) mmol/L Carbon Dioxide 20 L (22-30) mmol/L Anion Gap 13.3 (5-15) MEQ/L BUN 50 H (9-20) mg/dL Creatinine 3.81 H (0.66-1.25) mg/dL Estimated GFR 17.1 ML/MIN Glucose 428 H (74-106) mg/dL POC Glucometer (74 to 106) mg/dL Calcium 8.1 L (8.4-10.2) mg/dL Total Bilirubin 2.20 H (0.2-1.3) mg/dL AST 63 H (17-59) U/L ALT 48 (0-50) U/L Alkaline Phosphatase 450 H (38-126) U/L Troponin I 0.015 (0.000-0.034) ng/mL Serum Total Protein 7.2 (6.3-8.2) g/dL Albumin 2.8 L (3.5-5.0) g/dL Lipase 452 H (23-300) U/L Urine Color (Yellow) Urine Appearance (Clear) Urine pH (4.6-8.0) Ur Specific [place] (1.005-1.030) Urine Protein (Negative) Urine Glucose (UA) (Negative) mg/dL Urine Ketones (Negative) Urine Blood (Negative) Urine Nitrite (Negative) Urine Bilirubin (Negative) Urine Urobilinogen (0.2) mg/dL Ur Leukocyte Esterase (Negative) U Hyaline Cast (Auto) (0-2) /LPF Urine Microscopic RBC (0-5) /HPF Urine Microscopic WBC (0-5) /HPF Ur Epithelial Cells (None Seen) /HPF Urine Bacteria (None Seen) /HPF Urine Culture Reflexed (NO) Influenza Type A Ag (NEGATIVE) Influenza Type B Ag (NEGATIVE) RSV (PCR) (Negative) SARS-CoV-2 (PCR) (NEGATIVE) Slides for Path Review YES - Progress Progress: improved Progress Note: Patient advised that work-up reveals a new 3 to 4 mm obstructing kidney stone. Patient's urologist is that here at [facility]. In light of patient's acute on chronic renal injury we will transfer patient to [facility] to see his urologist. Patient had lithotripsy in the past for a kidney stone. 10/16/22 09:21 Patient is a 62-year-old male with a complicated past medical history including hepatitis C, liver cirrhosis, history of alcohol abuse, diabetes, chronic renal insufficiency, thrombocytopenia, esophagitis, duodenitis presents to our emergency department for evaluation of abdominal pain worse at the left lower quadrant. Patient's abdominal pain has worsened over the past 2 days. Patient's pain is acute. Testing includes CT abdomen pelvis, CBC, CMP, COVID testing, lipase, troponin, urinalysis. Work-up reveals a left obstructing 3 to 4 mm ureterolithiasis, chronic thrombocytopenia mild hyponatremia and acute on chronic renal injury BUN 50 creatinine 3.81. Hyperglycemia with a glucose of 428. Lipase is elevated at 452. Patient does not have epigastric pain. Complexity of problems addressed is high. Patient has severe exacerbation of chronic renal injury now with a significantly elevated creatinine of 3.8. This may be due to obstructive uropathy due to a left ureteral kidney stone. State CODA level and why. testing ordered (labs/EKG/imaging). Number of imaging studies. Results obtained/reviewed/analyzed and that results used in MDM. State if patient is independent historian. Any outside documents reviewed. Any independent interpretation of tests/imaging/EKG. Discussion of tests results and management with outside provider No critical care time. Complexity of data analyzed and reviewed is extensive. Test ordered, test reviewed, patient's served as independent historian due to patient's acute condition. Discussion regarding patient's management and transfer occurred with physician at [facility]. Risk of complication and/or morbidity/mortality of patient management is high. Patient received IV morphine for pain control. Additionally patient will requi re hospitalization to treat patient's acute condition. Patient's treatments included morphine IV Zofran IV and intravenous fluid rehydration to address acute on chronic renal injury. Level of EM service provided was high. Dispo (Admit, DC, Transfer, ) Plan of care and any SDOH that may impede follow up like ETOH use, smoking, homelessness, money, family support (ability to access/comply with plan) -Shared decision making (patient agrees to etc) -Time spent to discharge patient. -DC Dx, -DC vitals Case discussed with [facility] PA who feels patient is an appropriate transfer. They accept transfer however patient will need to be admitted under medicine service. Urinalysis reveals a urinary tract infection. Patient will receive a dose of Rocephin. Sal request keep patient n.p.o. and have CT scan uploaded to the cloud. 10/16/22 10:01 10/16/22 10:07 Second dose of morphine ordered per patient request. We are avoiding Toradol due to patient's acute on chronic renal injury. 10/16/22 10:[address] Aparicio hospitalist at [facility] who accepts transfer. Plan of care discussed with patient. He agrees with transfer however he is requesting that he be allowed to have his drive him. Patient states the last time he was transferred via ambulance he received a bill for $3000. Patient states that he wants to avoid another ambulance bill Portions of this note were created with voice recognition technology. There may be grammatical, spelling, punctuation or sound alike errors 10/16/22 10:13 10/16/22 20:[address] Nix ER physician at [facility] who accepts transfer. Counseled pt/family regarding: lab results, diagnosis, rad results - Departure Departure Disposition: Transfer Clinical Impression: Abdominal pain, Normocytic anemia, Thrombocytopenia, Hyponatremia, Acute renal injury, Hyperglycemia, Elevated lipase, Calcified granuloma of lung, Esophagitis, Duodenitis, Ascites, Liver cirrhosis, Splenomegaly, Distended gallbladder, Cholelithiasis, Nephrolithiasis, Renal cyst, Ureterolithiasis, Hydronephrosis, Aortoiliac calcifications, Right inguinal hernia, Urinary tract infection Condition: Stable Critical Care Time: No Referrals: IAN CHRISTENSEN [Primary Care Provider] - Follow up/PCP as directed
--- NOTE | 2022-10-16 08:35 | XRAY ---
Indication: Left lower quadrant pain and vomiting 3 weeks. Multiple contiguous axial images obtained through the abdomen and pelvis without contrast. Comparison: September 21, 2022 Lung bases demonstrate stable right infrahilar and right lower lobe calcified granulomas. No infiltrate or effusion. Heart not enlarged. Stable distal esophageal circumferential wall thickening again favoring esophagitis. Noncontrasted stomach and bowel loops remain nonobstructed. Stable duodenal compressional wall thickening again favoring duodenitis. Again mild diffuse scattered colonic fecal debris throughout, less than before. New mild abdominal/pelvic ascites with again cirrhotic liver, 15.3 cm splenomegaly, and enlarged main portal vein. No free air. Gallbladder remains distended with tiny gallstones. The remains bilateral renal micro-calculi and right mid renal cortical cyst. New 3-4 mm proximal left ureter calculus, approximately L5 level with mild hydronephrosis. Riley balloon catheter has been removed. Remaining pancreas and adrenal glands are unremarkable for noncontrast exam. Stable minimal scattered aortoiliac calcifications without AAA. Stable small fatty right inguinal hernia. Impression: 1. New 3-4 mm proximal left ureteral calculus producing partial obstructive uropathy. Cortes stable bilateral renal micro-calculi. 2. New mild abdominal/pelvic ascites with stable cirrhotic liver, splenomegaly, and enlarged portal vein. 3. Again mild distended gallbladder with tiny gallstones. 4. Again esophageal and duodenal circumferential wall thickening favoring esophagitis and duodenitis. 4. Chronic findings including arteriosclerotic disease, small fatty right inguinal hernia, and old granulomatous disease.
[2022-10-16 09:18] LABS: INFLUENZA A NEGATIVE (NEGATIVE); INFLUENZA B NEGATIVE (NEGATIVE); RESPIRATORY SYNCTIAL VIRUS NEGATIVE (Negative); SARS-CoV-2 Xpert Express NEGATIVE (NEGATIVE)
[2022-10-16 09:30] LABS: Appearance Clear (Clear); Bacteria None Seen /HPF (None Seen); Bilirubin Negative (Negative); Blood Small (Negative); Epithelial Cells None Seen /HPF (None Seen); Glucose, Urine >=1000 mg/dL (Negative); Hyaline Casts NONE SEEN /LPF (0-2); Ketones Negative (Negative); Leukocyte Esterase Small (Negative); Nitrite Negative (Negative); Ph 5.5 (4.6-8.0); Protein,Urine Dip 100 (Negative); RBC 0-2 /HPF (0-5); WBC 21-50 /HPF (0-5)
[2022-10-16 09:32] LABS: ADD URINE CULTURE? YES (NO)
[2022-10-16] MEDS ORDERED: ROCEPHIN 1 Gm-D5w 50 ml Bag** 1 G/50 ML IVPB IV STA (10:03)
[2022-10-16] MEDS ORDERED: MORPHINE SULFATE 4 MG INJ IV ONE ×2 (10:08→13:01)
[2022-10-16] MEDS ORDERED: ROCEPHIN 1 Gm-D5w 50 ml Bag** 1 G/50 ML IVPB IV ONE (10:10)
[2022-10-16] MEDS ORDERED: MORPHINE SULFATE 4 MG INJ ONE ×2 (10:10→13:09)
[2022-10-16] MEDS ORDERED: Sodium Chloride 0.9% 1000 ML 1,000 ML IV SCH (16:00)
[2022-10-16] MEDS ORDERED: BENADRYL 50 MG/ML IV ONE (18:58)
[2022-10-16] MEDS ORDERED: BENADRYL 50 MG/ML ONE (19:00)
[2022-10-16 20:35] VITALS: O2SAT 99
[2022-10-16 21:02] VITALS: BP 128/73; PULSE 72
== END 2022-10-16 21:15 | disposition short-term general hospital (02) ==
LOC: ED 06:43
DX: N39.0 Urinary tract infection, site not specified (principal); N13.2 Hydronephrosis with renal and ureteral calculous obstruction; N17.9 Acute kidney failure, unspecified; R10.32 Left lower quadrant pain; D64.9 Anemia, unspecified; D69.6 Thrombocytopenia, unspecified; E87.1 Hypo-osmolality and hyponatremia; E11.65 Type 2 diabetes mellitus with hyperglycemia; R79.89 Other specified abnormal findings of blood chemistry; R91.8 Other nonspecific abnormal finding of lung field; K20.90 Esophagitis, unspecified without bleeding; K29.80 Duodenitis without bleeding; K74.60 Unspecified cirrhosis of liver; R18.8 Other ascites; R16.1 Splenomegaly, not elsewhere classified; K80.20 Calculus of gallbladder without cholecystitis without obstruction; K82.8 Other specified diseases of gallbladder; N28.1 Cyst of kidney, acquired; I70.0 Atherosclerosis of aorta; K40.90 Unilateral inguinal hernia, without obstruction or gangrene, not specified as recurrent; N18.9 Chronic kidney disease, unspecified; Z79.4 Long term (current) use of insulin; Z79.899 Other long term (current) drug therapy; Z28.310 Unvaccinated for COVID-19
CPT/HCPCS: 0241U; 36000; 36415; 74176; 80053; 81001; 82947; 83690; 84484; 85025; 87086; 96365; 96374; 96375; 96376; 99285; J0696; J1200; J2270; J2405

== ENCOUNTER 2022-12-17 08:23 | Emergency (ER) | payer OTHER ==
--- NOTE | 2022-12-17 08:30 | ERPHSYRPT ---
- History of Present Illness Time Seen by Provider: 12/17/22 08:30 Source: patient Exam Limitations: no limitations Physician History: This is an overweight 62-year-old white male who is diabetic and has a history of hypertension and chronic renal disease and presents with right knee pain, warmth, and swelling. His primary care provider is Dr. Lutz. This patient, 4 days ago, was crawling across his truck and feels that is the time where he injured his knee. It is painful and it hurts to straighten out his right leg. Method of Injury: twisted Occurred: days ago (4) Severity of Pain-Max: moderate Severity of Pain-Current: moderate Lower Extremities Pain: knee: right (Pain swelling and warmth) Modifying Factors: Improves With: movement Associated Symptoms: other (Can ambulate but hurts to do so) Allergies/Adverse Reactions: No Known Drug Allergies Allergy (Verified 12/17/22 08:36) Home Medications: Insulin Glargine,Hum.rec.anlog [Basaglar Kwikpen U-100] 15 unit SQ BID 05/21/22 [History] Insulin Lispro [Humalog] 20 unit SQ AC 05/21/22 [History] Lisinopril 5 mg [Zestril 5 MG] 5 mg PO DAILY 10/16/22 [History] Furosemide 40 mg [Lasix 40 MG] 1 tab PO DAILY 12/17/22 [History] Sulfamethoxazole/Trimethoprim [Sulfamethoxazole-Tmp Ds Tablet] 1 tab PO BID 12/17/22 [History] Tamsulosin HCl 0.4 mg [Flomax 0.4 MG] 1 cap PO DAILY 12/17/22 [History] Hx Tetanus, Diphtheria Vaccination/Date Given: Yes Hx Influenza Vaccination/Date Given: No Hx Pneumococcal Vaccination/Date Given: No Travel Risk - International Travel Have you traveled outside of the country in past 3 weeks: No - Coronavirus Screening Are you exhibiting any of the following symptoms?: No Close contact with a COVID-19 positive Pt in past 14-21 Days: No - Vaccine Status Have you recieved a Covid-19 vaccination: No - Review of Systems Constitutional: No Symptoms Eyes: No Symptoms Ears, Nose, & Throat: No Symptoms Respiratory: No Symptoms Cardiac: No Symptoms Abdominal/Gastrointestinal: No Symptoms Genitourinary Symptoms: No Symptoms Musculoskeletal: Injury (Right knee) Skin: Cellulitis Neurological: No Symptoms Psychological: No Symptoms Endocrine: No Symptoms Hematologic/Lymphatic: No Symptoms Immunological/Allergic: No Symptoms All Other Systems: Reviewed and Negative - Past Medical History Pertinent Past Medical History: Yes Neurological History: No Pertinent History ENT History: No Pertinent History Cardiac History: No Pertinent History Respiratory History: No Pertinent History Endocrine Medical History: Diabetes Type II Musculoskeletal History: Fractures GI Medical History: Cirrhosis, Hepatitis History: Renal Disease Psycho-Social History: No Pertinent History Male Reproductive Disorders: No Pertinent History Other Medical History: "hole in a kidney", Hepititis C but has been treated and cured. fell and broke back that didn't require surgery. stage 2-3 kidney di sease - Past Surgical History Past Surgical History: Yes Neuro Surgical History: No Pertinent History Cardiac: No Pertinent History Respiratory: No Pertinent History Gastrointestinal: No Pertinent History Genitourinary: No Pertinent History Musculoskeletal: No Pertinent History Male Surgical History: No Pertinent History Other Surgical History: liver biopsy, finger, scrotal abscess - Social History Smoking Status: Former smoker Exposure to second hand smoke: No Drug Use: none Patient Lives Alone: No Significant Family History: no pertinent family hx - Nursing Vital Signs Nursing Vital Signs: Initial Vital Signs Temperature 97.7 F 12/17/22 08:37 Pulse Rate 82 12/17/22 08:37 Respiratory Rate 20 12/17/22 08:37 Blood Pressure 110/64 12/17/22 08:37 O2 Sat by Pulse Oximetry 98 12/17/22 08:37 Pain Scale Pain Intensity 10 - Physical Exam General Appearance: no apparent distress, alert, anxiety, obese Eyes, Ears, Nose, Throat Exam: normal ENT inspection, moist mucous membranes Neck Exam: normal inspection, non-tender, supple, full range of motion Cardiovascular/Respiratory Exam: chest non-tender, no respiratory distress Gastrointestinal/Abdominal Exam: non-tender Back Exam: normal inspection, normal range of motion, No CVA tenderness, No vertebral tenderness Hips Exam: bilateral: non-tender, normal inspection, normal range of motion, no evidence of injury Legs Exam: bilateral leg: non-tender, normal inspection, normal range of motion, no evidence of injury Ankle Exam: bilateral ankle: non-tender, normal inspection, normal range of motion, no evidence of injury Foot Exam: bilateral foot: non-tender, normal inspection, normal range of motion, no evidence of injury Neuro/Tendon Exam: normal sensation, normal tendon functions, responds to pain (Heart to have the patient extend his right knee but he can do so.), no evidence tendon injury Mental Status Exam: alert, oriented x 3, cooperative Skin Exam: other (Redness and warmth of skin overlying the right anterior knee) SpO2 Interpretation: normal O2 Delivery: Room Air - Course Nursing assessment & vital signs reviewed: Yes Ordered Tests: Active Orders 24 hr Category Date Time Status KNEE (3 VIEWS) Stat Exams 12/17/22 08:56 Completed Medication Summary Discontinued Medications Generic Name Dose Route Start Last Admin Trade Name Freq PRN Reason Stop Dose Admin Ceftriaxone Sodium 1,000 mg 12/17/22 09:48 Ceftriaxone Sodium 1000 Mg Inj Vial IM 12/17/22 09:49 STAT ONE Oxycodone/Acetaminophen 1 tab 12/17/22 09:48 Oxycodone / Apap 10/325 Mg 1 Tablet PO 12/17/22 09:49 STAT STA - Progress Progress: improved, pain not gone completely, re-examined Progress Note: 12/17/22 09:54 X-ray of right knee was read by the radiologist and the impression was reviewed by me. There are no acute fractures or dislocation. There are numerous tiny anterior knee and anterior right lower leg radiopacities felt to be cutaneous and external. This patient's medical issue is 1 of low to moderate complexity. The level of complexity and the work-up performed is based on the patient's past medical history, review of the patient's medication list, review of the patient's drug allergy list, history of present illness and findings on physical examination. No lab studies are necessary. However I did order an x-ray of the right knee which showed the above-stated findings. Patient does have a cellulitis that is present and there are some's very superficial radio opacities present. Patient will be given an injection of Rocephin intramuscularly and a oral analgesic Percocet 10/325 here in the emergency department. We will have him follow-up with his primary care physician by phone today to make an arrangements for follow-up appointment in 3 days for reassessment. We will also provide the patient with antibiotics orally and pain medicine orally to his pharmacy electronically. Counseled pt/family regarding: diagnosis, need for follow-up, rad results Medical Desision Making - Independent Historian Additional History obtained from: Spouse - Discussion of managment Reviewed:: Test results Agreed on:: Treatment plan, need for follow-up - Diagnostic Testing Diagnostic test were ordered, analyzed, and reviewed by me: Yes Radiological Interpretation: Reviewed by me, Teleradiologist Report - Risk of complications The pt has a mod risk of morbidity or mortality based on: Need for prescription drug management - Departure Departure Disposition: Home Clinical Impression: Cellulitis of right knee Condition: Stable Critical Care Time: No Referrals: IAN LUTZ [Primary Care Provider] - Follow up/PCP as directed Additional Instructions: Take your medication as prescribed. Keep your right knee clean with soap and water and make sure you scrub the site when you are cleaning. Ice pack 3 times a day for the next 48 hours. Follow-up at the [facility] orthopedic clinic in the next 24 to 48 hours between 8 and 10 AM for reassessment. It is a walk-in clinic and you do not need to have an appointment. Take your antibiotics and pain medicine as prescribed. Prescriptions: Oxycodone HCl/Acetaminophen [Percocet 5-325 mg Tablet] 1 each PO Q8H PRN PRN #6 tablet MDD 3 PRN Reason: Moderate To Severe Pain Levofloxacin [Levaquin 500 MG Tablet] 500 mg PO DAILY #7 tablet
--- NOTE | 2022-12-17 09:31 | XRAY ---
Indication: Pain following twisting injury. Comparison: None 3 portable views right knee demonstrates osteopenia, tiny nonspecific effusion, and small posterior fabella. Numerous tiny anterior knee and lower leg radiopacities felt to be cutaneous/external. No other bony, articular, or soft tissue abnormalities.
[2022-12-17] MEDS ORDERED: Rocephin 1000 MG INJ IM ONE (09:48)
[2022-12-17] MEDS ORDERED: OXYCODONE-ACETAMINOPHEN 10-325 PO STA (09:48)
[2022-12-17] MEDS ORDERED: OXYCODONE-ACETAMINOPHEN 10-325 ONE (09:59)
[2022-12-17] MEDS ORDERED: XYLOCAINE 1% HCL 20 ML MDV ONE (09:59)
[2022-12-17] MEDS ORDERED: Rocephin 1000 MG INJ ONE (09:59)
[2022-12-17 11:04] VITALS: BP 91/79; PULSE 79; O2SAT 100
== END 2022-12-17 11:11 | disposition home or self-care (01) ==
LOC: ED 08:23
DX: L03.115 Cellulitis of right lower limb (principal); M25.561 Pain in right knee; E11.22 Type 2 diabetes mellitus with diabetic chronic kidney disease; I12.9 Hypertensive chronic kidney disease with stage 1 through stage 4 chronic kidney disease, or unspecified chronic kidney disease; N18.9 Chronic kidney disease, unspecified; Z79.4 Long term (current) use of insulin; Z79.891 Long term (current) use of opiate analgesic; Z79.899 Other long term (current) drug therapy; Z28.310 Unvaccinated for COVID-19
CPT/HCPCS: 73562; 96372; 99283; J0696; A9270-GY

== ENCOUNTER 2023-01-09 18:28 | Emergency (ER) | payer OTHER, SELFPAY ==
[2023-01-09 18:45] VITALS: BP 113/72; PULSE 66
[2023-01-09] MEDS ORDERED: XYLOCAINE 1% HCL 20 ML MDV ONE (19:30)
[2023-01-09] MEDS ORDERED: PERCOCET TABLET 5/325MG PO ONE (19:36)
[2023-01-09] MEDS ORDERED: PERCOCET TABLET 5/325MG ONE ×2 (19:37→20:05)
--- NOTE | 2023-01-09 19:37 | ERPHSYRPT ---
- History of Present Illness Time Seen by Provider: 01/09/23 19:31 Source: patient Exam Limitations: no limitations Patient Subjective Stated Complaint: pt here for laceration and bruising to right arm and bruising to right upper chest after a cap came off of a air valve with about 100 plbs of pressure, Triage Nursing Assessment: pt alert, walked in, resp easy, skin w/d/p. has bruising with laceration to lower right arm no bleeding noted, as bruising to upper arm and upper right chest. 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 No difficulty movements at the wrist. Complaining of mild to moderate pain in the right anterior chest wall without any difficulty breathing. Up-to-date with tetanus. No forearm/arm swelling. Timing/Duration: today Quality: painful Severity: moderate Location: torso, hands, extremities Associated Symptoms: change in skin texture Allergies/Adverse Reactions: No Known Drug Allergies Allergy (Verified 01/09/23 18:54) Home Medications: Insulin Glargine,Hum.rec.anlog [Basaglar Kwikpen U-100] 15 unit SQ BID 05/21/22 [History] Insulin Lispro [Humalog] 20 unit SQ AC 05/21/22 [History] Lisinopril 5 mg [Zestril 5 MG] 5 mg PO DAILY 10/16/22 [History] Furosemide 40 mg [Lasix 40 MG] 1 tab PO DAILY 12/17/22 [History] Sulfamethoxazole/Trimethoprim [Sulfamethoxazole-Tmp Ds Tablet] 1 tab PO BID 12/17/22 [History] Tamsulosin HCl 0.4 mg [Flomax 0.4 MG] 1 cap PO DAILY 12/17/22 [History] Hx Tetanus, Diphtheria Vaccination/Date Given: Yes (6 years ago) Hx Influenza Vaccination/Date Given: No Hx Pneumococcal Vaccination/Date Given: No Immunizations Up to Date: Yes Travel Risk - International Travel Have you traveled outside of the country in past 3 weeks: No - Coronavirus Screening Are you exhibiting any of the following symptoms?: No Close contact with a COVID-19 positive Pt in past 14-21 Days: No - Vaccine Status Have you recieved a Covid-19 vaccination: No - Review of Systems Constitutional: No Symptoms Ears, Nose, & Throat: No Symptoms Respiratory: No Symptoms Cardiac: Chest Pain (Right anterior chest wall) Genitourinary Symptoms: No Symptoms Musculoskeletal: Injury Skin: Skin Lesions Neurological: No Symptoms Psychological: No Symptoms Hematologic/Lymphatic: No Symptoms Immunological/Allergic: No Symptoms - Past Medical History Pertinent Past Medical History: Yes Neurological History: No Pertinent History ENT History: No Pertinent History Cardiac History: No Pertinent History Respiratory History: No Pertinent History Endocrine Medical History: Diabetes Type II Musculoskeletal History: Fractures GI Medical History: Cirrhosis, Hepatitis History: Renal Disease Psycho-Social History: No Pertinent History Male Reproductive Disorders: No Pertinent History Other Medical History: "hole in a kidney", Hepititis C but has been treated and cured. fell and broke back that didn't require surgery. 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 - Past Surgical History Past Surgical History: Yes Neuro Surgical History: No Pertinent History Cardiac: No Pertinent History Respiratory: No Pertinent History Gastrointestinal: No Pertinent History Genitourinary: No Pertinent History Musculoskeletal: No Pertinent History Male Surgical History: No Pertinent History Other Surgical History: liver biopsy, finger, scrotal abscess - Social History Smoking Status: Former smoker Exposure to second hand smoke: No Drug Use: none Patient Lives Alone: No Significant Family History: no pertinent family hx - Nursing Vital Signs Nursing Vital Signs: Initial Vital Signs Temperature 98.3 F 01/09/23 18:44 Pulse Rate 66 01/09/23 18:44 Respiratory Rate 16 01/09/23 18:44 Blood Pressure 113/72 01/09/23 18:44 Pain Scale Pain Intensity 8 - Physical Exam General Appearance: no apparent distress, alert Eye Exam: PERRL/EOMI Ears, Nose, Throat Exam: normal ENT inspection Neck Exam: normal inspection, non-tender, supple, full range of motion Respiratory Exam: normal breath sounds, chest tenderness (Right anterior chest wall bruising/tenderness mild to moderate. No crepitus.), lungs clear Cardiovascular Exam: regular rate/rhythm, normal heart sounds Extremity Exam: normal range of motion, contusions, lacerations (4 cm laceration right distal medial forearm with no obvious lacerated tendon. Intact range of motion of fingers/wrist. No active spurting, minimal oozing. No bony tenderness. Abrasion and contusion mid forearm and arm with also some contusion under right anterior chest wall with no crepitus. ), swelling, tenderness Neurologic Exam: alert, oriented x 3, cooperative Skin Exam: normal color SpO2 Interpretation: normal SpO2: 98 O2 Delivery: Room Air Procedures - Laceration/Wound Repair Right Distal Arm Time of Procedure: 20:00 Wound Location: Right Wound Length (cm): 4 Wound's Depth, Shape: into muscle Wound Explored: clean Irrigated: Yes Hibiclens Prep: Yes Anesthesia: 1% Lidocaine Volume Anesthetic (ccs): 5 Wound Debrided: minimal Wound Repaired With: sutures Suture Size/Type: 4-0, nylon Number of Sutures: 8 Layer Closure?: No Sterile Dressing Applied?: Yes Splint Applied?: Yes Type of Splint Applied: premade Ordered Tests: Active Orders 24 hr Category Date Time Status CHEST 1 VIEW (PORTABLE) Stat Exams 01/09/23 18:59 Taken FOREARM Stat Exams 01/09/23 18:58 Taken Medication Summary Discontinued Medications Generic Name Dose Route Start Last Admin Trade Name Freq PRN Reason Stop Dose Admin Cephalexin HCl 500 mg 01/09/23 20:11 01/09/23 20:21 Cephalexin Mh500 Mg Capsule PO 01/09/23 20:12 500 mg STAT ONE Administration Cephalexin HCl Confirm 01/09/23 20:20 Cephalexin Mh500 Mg Capsule Administered 01/09/23 20:21 Dose 500 mg .ROUTE .STK-MED ONE Lidocaine HCl Confirm 01/09/23 19:30 Lidocaine Hcl 1% 20 Ml Mdv 20 Ml Ml Administered 01/09/23 19:31 Dose 10 ml .ROUTE .STK-MED ONE Oxycodone/Acetaminophen 1 tab 01/09/23 19:36 01/09/23 19:38 Oxycodone Hcl/Apap 5 Mg/325 Mg Tablet PO 01/09/23 19:37 1 tab STAT ONE Administration Oxycodone/Acetaminophen Confirm 01/09/23 19:37 Oxycodone Hcl/Apap 5 Mg/325 Mg Tablet Administered 01/09/23 19:38 Dose 1 tab .ROUTE .STK-MED ONE Oxycodone/Acetaminophen 2 tab 01/09/23 19:54 01/09/23 20:06 Oxycodone Hcl/Apap 5 Mg/325 Mg Tablet PO 01/09/23 19:55 2 tab SENT HOME W/ PATIENT STA Administration Oxycodone/Acetaminophen Confirm 01/09/23 20:05 Oxycodone Hcl/Apap 5 Mg/325 Mg Tablet Administered 01/09/23 20:06 Dose 2 tab .ROUTE .STK-MED ONE - Progress Progress: improved, pain not gone completely Progress Note: 01/09/23 20:08 62-year-old with a history of diabetes mellitus, hypertension, CKD is evaluated in the ER with laceration right distal forearm and contusion on the right anterior chest wall and right upper extremity after pressure wall broke on his semi and the Hit him really hard. This happened almost 5 hours ago. No limitation range of motion at the wrist, elbow/shoulder. Complaining of mild to moderate pain in the chest wall. Took Percocet which she had at home prior to arrival and feeling better. Obtain x-rays chest which are negative for acute fracture ribs, pneumothorax, hemothorax or any other acute abnormality reviewed by me and I have also discussed with radiologist who agrees with it. Laceration is repaired. Do not think needs any other imaging. Started on Keflex and will give pain medications. Outpatient follow-up recommended. Premade splint placed on the wrist to avoid stretching the area of suture. Discussed signs symptoms of worsening needing return to ER which he seems understanding. Stable for discharge. Counseled pt/family regarding: diagnosis, need for follow-up, rad results Medical Desision Making - Diagnostic Testing Diagnostic test were ordered, analyzed, and reviewed by me: Yes Radiological Interpretation: Interpreted by me, Reviewed by me, Discussed w/ radiologist - Risk of complications The pt has a mod risk of morbidity or mortality based on: Need for prescription drug management - Departure Departure Disposition: Home Clinical Impression: Forearm laceration, Contusion of arm, right, multiple sites, Chest wall contusion Condition: Stable Critical Care Time: No Referrals: IAN CHRISTENSEN [Primary Care Provider] - Follow up with PCP 2 days Instructions: Laceration Repair With Stitches (DC) Additional Instructions: Take medications as needed. Do deep breathing exercises. Keep the wound clean and follow wound care instructions and return to ER for any worsening. Intermittent ice applications. Avoid exertional work with right upper extremity. Forms: Work/School Release Form Prescriptions: Hydrocodone/Acetaminophen [Hydrocodone-Acetamin 5-325 mg] 1 tab PO Q6HPRN PRN 3 Days #7 tablet MDD 4 PRN Reason: Pain Cephalexin Mh 500 mg [Keflex 500 mg] 500 mg PO TID #21 cap
[2023-01-09] MEDS ORDERED: PERCOCET TABLET 5/325MG PO STA (19:54)
[2023-01-09] MEDS ORDERED: KEFLEX 500 MG PO ONE (20:11)
[2023-01-09] MEDS ORDERED: KEFLEX 500 MG ONE (20:20)
[2023-01-09 23:14] VITALS: O2SAT 98
--- NOTE | 2023-01-10 15:07 | XRAY ---
Indication: Right chest trauma. Comparison: May 24, 2022 Portable chest again demonstrates normal heart and lungs with incidental tiny calcified granulomas and mild right hemidiaphragm elevation. PICC line has been removed. Bony thorax intact. No acute findings.
--- NOTE | 2023-01-10 15:07 | XRAY ---
Indication: Trauma. Multiple lacerations. Comparison: None 2 View right forearm demonstrates mild distal ulnar vascular calcifications. No other bony, articular, or soft tissue abnormalities.
== END 2023-01-09 20:29 | disposition home or self-care (01) ==
LOC: ED 18:28
DX: S51.811A Laceration without foreign body of right forearm, initial encounter (principal); S40.021A Contusion of right upper arm, initial encounter; S20.211A Contusion of right front wall of thorax, initial encounter; W20.8XXA Other cause of strike by thrown, projected or falling object, initial encounter; E11.9 Type 2 diabetes mellitus without complications; Z79.4 Long term (current) use of insulin; Z79.899 Other long term (current) drug therapy; Z28.310 Unvaccinated for COVID-19
CPT/HCPCS: 12002; 71045; 73090; 99283; L3908; A9270-GY

== ENCOUNTER 2023-06-18 11:09 | Inpatient (IN) | payer OTHER, SELFPAY ==
[2023-06-18] MEDS ORDERED: Lactated Ringers 1,000 ML IV ONE (12:55)
[2023-06-18] MEDS ORDERED: PIPERACILLIN/TAZOBACTAM 3.375 GM in Sodium Chloride 100ML MINI-BAG PLUS 100 ML IV SCH (13:00)
[2023-06-18] MEDS ORDERED: Lactated Ringers 1,000 ML IV SCH (14:00)
[2023-06-18 14:18] LABS: Absolute Neutrophil Ct (ANC) 3.68 x10^3/uL (1.4-6.9); BASOPHIL % 0.4 % (0.0-0.4); Basophil (Absolute #) 0.02 x10^3/uL (0-0.4); Eosinophil % 0.8 % (0.00-5.0); Eosinophil (Absolute #) 0.04 x10^3/uL (0-0.5); Hematocrit 29.2 % (42-50); Hemoglobin 9.3 g/dL (12.5-18.0); IMMATURE GRAN # 0.01 x10^3u/L (0.00-0.03); IMMATURE GRAN % 0.2 % (0.00-0.4); Lymphocyte (Absolute #) 0.68 x10^3/uL (1.0-4.6); Lymphocytes % 13.8 % (24.0-44.0); Mean Cell Volume 95.1 fL (78-100); Mean Corpuscular Hemoglobin 30.3 pg (26-32); Mean Corpuscular Hgb Concent. 31.8 g/dL (32-36); Mean Platelet Volume 10.3 fL (7.5-11.0); Monocyte (Absolute #) 0.51 x10^3/uL (0.0-1.3); Monocytes % 10.3 % (0.0-12.0); Neutrophil % 74.5 % (36.0-66.0); Platelet Count 95 x10^3/uL (150-450); Red Blood Count 3.07 x10^6/uL (4.1-5.6); White Blood Count 4.9 x10^3/uL (4.0-10.5)
--- NOTE | 2023-06-18 14:23 | PCM.HP ---
History of Present Illness - Chief Complaint Chief Complaint: ulcer of ble History of Present Illness: is a 62 year old male with Pmhx of HTN, type II DM, hepatitis C ( treated) , cirrhosis, CKD stage 3. He was seen in podiatry clinic today and then referred for IP admission due to the severity of his wounds. Currently BL legs are wrapped. was able to show wound to provider on her phone. Podiatry plans to take pt to surgery today for debridement. He has mild c/o pain. He de nies CP, SOB, abd. pain, N/V/D. - Review of Systems Constitutional: No Fever, No Chills Eyes: No Symptoms Ears, Nose, & Throat: No Symptoms Respiratory: No Cough, No Short Of Breath Cardiac: No Chest Pain, No Edema, No Syncope Abdominal/Gastrointestinal: No Abdominal Pain, No Nausea, No Vomiting, No Diarrhea Genitourinary Symptoms: No Dysuria Musculoskeletal: No Back Pain, No Neck Pain Skin: Skin Lesions (BLLE- wrapped), Other, No Rash Neurological: No Dizziness, No Focal Weakness, No Sensory Changes Psychological: No Symptoms Endocrine: No Symptoms Hematologic/Lymphatic: No Symptoms Immunological/Allergic: No Symptoms Medications & Allergies Home Medications: Home Medication List Insulin Glargine,Hum.rec.anlog [Basaglar Kwikpen U-100] 18 unit SQ BID 05/21/22 [History Confirmed 06/18/23] Insulin Lispro [Humalog] 15 unit SQ TIDAC 05/21/22 [History Confirmed 06/18/23] Semaglutide [Rybelsus] 7 mg PO DAILY 06/18/23 [History Confirmed 06/18/23] Allergies/Adverse Reactions: Allergies Allergy/AdvReac Type Severity Reaction Status Date / Time No Known Drug Allergies Allergy Verified 01/09/23 18:54 - Past Medical History Past Medical History: Yes Neurological History: No Pertinent History ENT History: No Pertinent History Cardiac History: Hypertension Respiratory History: No Pertinent History Endocrine Medical History: Diabetes Type II, Liver Disease Musculoskelatal History: Fractures GI Medical History: Cirrhosis, Hepatitis History: Renal Disease Pyscho-Social History: No Pertinent History Male Reproductive Disorders: No Pertinent History Comment: HX OF HEP C (TREATED AND "CURED"). STAGE 2-3 KIDNEY DISEASE. HX FALL WITH BACK "FRACTURE" BUT NO SURGERY. HX OF SURGERY FOR SCROTAL ABSCESS. PATIENT REPORTS A1C HAS DECREASED FROM 12 TO 7.? BUT BLOOD SUGARS CONSISTENTLY ABOVE 200. - Past Surgical History Past Surgical History: Yes Neuro Surgical History: No Pertinent History Cardiac History: No Pertinent History Respiratory Surgery: No Pertinent History GI Surgical History: No Pertinent History Genitourinary Surgical Hx: Kidney Surgery Musculskeletal Surgical Hx: No Pertinent History Male Surgical History: No Pertinent History Other Surgical History: liver biopsy, finger, scrotal abscess - Social History Smoking Status: Former smoker Exposure to second hand smoke: No Alcohol: None Drug Use: none Significant Family History: no pertinent family hx - Physical Exam Vital Signs: Vital Signs - 24 hr Temp Pulse Resp BP Pulse Ox 06/18/23 12:51 97.3 F 76 15 133/66 90 L 06/18/23 12:29 97.3 F 76 18 90 L General Appearance: no apparent distress, alert Neurologic Exam: alert, oriented x 3, cooperative, normal mood/affect, nml cerebellar function, nml station & gait, sensation nml, No motor deficits Eye Exam: PERRL/EOMI, eyes nml inspection Ears, Nose, Throat Exam: normal ENT inspection, TMs normal, pharynx normal, moist mucous membranes Neck Exam: normal inspection, non-tender, supple, full range of motion Respiratory Exam: normal breath sounds, lungs clear, No respiratory distress Cardiovascular Exam: regular rate/rhythm, normal heart sounds, normal peripheral pulses Gastrointestinal/Abdomen Exam: soft, normal bowel sounds, No tenderness, No mass Back Exam: normal inspection, normal range of motion, No CVA tenderness, No vertebral tenderness Extremity Exam: normal inspection, normal range of motion, pelvis stable Skin Exam: normal color, warm, dry, other (ulcers of BLLE- BLLE currently wrapped.), No rash Lymphatic Exam: No adenopathy Results - Labs Lab/Micro Results: Lab Results-Last 24 Hours 06/18/23 Range/Units 12:51 Lactic Acid 1.7 (0.4-2.0) - Radiology Impressions Radiology Exams & Impressions: Radiology Procedures Category Date Time Status PICC LINE PLACEMENT Routine Exams 06/18/23 12:52 Ordered Assessment/Plan (1) Ulcer of extremity due to chronic venous insufficiency Current Visit: No Status: Acute Assessment & Plan: - XR RLE 06/17 2 view right lower leg demonstrates diffuse tiny subcutaneous soft tissue calcifications favoring dermatomyositis. Incidental age-related osteopenia. No other bony, articular, or soft tissue abnormalities. - Podiatry to take to surgery today for debridement - Start antibiotics per podiatry orders that were written, vancomycin and zosyn - NPO - wound culture from yesterday pending - pain control - PICC line placement for OP antibiotics - Consider MRI Code(s): L98.499 - NON-PRESSURE CHRONIC ULCER OF SKIN OF SITES W UNSP SEVERITY; I87.2 - VENOUS INSUFFICIENCY (CHRONIC) (PERIPHERAL) (2) DM2 (diabetes mellitus, type 2) Current Visit: No Status: Chronic Assessment & Plan: - Continue home dose of insulin - Hold oral medication - humalog S/S added - A1C pending (3) Oxygen decrease Current Visit: Yes Status: Acute Assessment & Plan: - O2 90% on RA - Keep oxygen > 92% - PRN Oxygen Code(s): R09.02 - HYPOXEMIA
[2023-06-18 14:37] LABS: ALBUMIN 2.8 g/dL (3.5-5.0); ANION GAP 10.3 MEQ/L (5-15); BILIRUBIN,TOTAL 1.2 mg/dL (0.2-1.3); Calcium 8.4 mg/dL (8.4-10.2); Creatinine 1 2.08 mg/dL (0.66-1.25); EST GLOMERULAR FILTRATION RATE 34.5 ML/MIN; Potassium 4.8 mmol/L (3.5-5.1)
[2023-06-18] MEDS ORDERED: PHARMACY DOSING REQUIRED: VANCOMYCIN IV STA (14:41)
[2023-06-18] MEDS ORDERED: PHARMACY DOSING REQUEST MC ONE (14:42)
[2023-06-18] MEDS ORDERED: HUMALOG SQ PRN (14:42)
[2023-06-18 14:59] LABS: Slide Review 1 YES
[2023-06-18] MEDS ORDERED: Xylocaine-Mpf 2% 5 Ml Vial ONE (15:16)
[2023-06-18] MEDS ORDERED: Versed 2 MG/2 ML Injection ONE (15:16)
[2023-06-18] MEDS ORDERED: SUBLIMAZE 100 MCG/2 ML ONE (15:16)
[2023-06-18] MEDS ORDERED: DIPRIVAN 200 MG/20 ML IV ONE ×2 (15:16→16:25)
[2023-06-18] MEDS ORDERED: Xylocaine 1% Vial 30 ML PF IJ ONE (15:45)
[2023-06-18] MEDS ORDERED: Marcaine Mpf 0.5% Vial 30 Ml ONE (15:45)
--- NOTE | 2023-06-18 16:54 | XRAY ---
Indication: Right lower leg bone debridement. Intraoperative fluoroscopy provided for 4 seconds. Single digital spot image submitted for interpretation demonstrates instrument tip projecting mid lower leg. Correlate with intraoperative findings/report.
[2023-06-18] MEDS ORDERED: Hydromorphone 1 mg/ml Injection ONE (17:02)
[2023-06-18] MEDS: VANCOMYCIN 1.25 GM/250 ML BAG 1.25 GM/250 ML PIGGYBACK IV SCH (18:15)
[2023-06-18] MEDS: HUMALOG SQ SCH (18:20)
[2023-06-18] MEDS: PIPERACILLIN/TAZOBACTAM 3.375 GM in Sodium Chloride 100ML MINI-BAG PLUS 100 ML IV SCH ×2 (18:22→23:43)
[2023-06-18] MEDS ORDERED: Zofran 4 MG/2 ML VIAL IV PRN (19:14)
[2023-06-18] MEDS: Lantus Insulin SQ SCH (22:03)
[2023-06-19] MEDS: MORPHINE SULFATE 2 MG INJ IV PRN ×3 (00:22→12:06)
[2023-06-19 05:27] LABS: Hemoglobin 8.9 g/dL (12.5-18.0); Mean Cell Volume 95.2 fL (78-100); Mean Corpuscular Hemoglobin 30.3 pg (26-32); Mean Corpuscular Hgb Concent. 31.8 g/dL (32-36); Mean Platelet Volume 10.8 fL (7.5-11.0); Platelet Count 81 x10^3/uL (150-450); Red Blood Count 2.94 x10^6/uL (4.1-5.6); Red Cell Distribution Width 14.2 % (11.5-14.0); White Blood Count 3.6 x10^3/uL (4.0-10.5)
[2023-06-19] MEDS: PIPERACILLIN/TAZOBACTAM 3.375 GM in Sodium Chloride 100ML MINI-BAG PLUS 100 ML IV SCH ×4 (05:45→23:48)
[2023-06-19 05:58] LABS: ALBUMIN 2.5 g/dL (3.5-5.0); ANION GAP 9.3 MEQ/L (5-15); BILIRUBIN,TOTAL 1.1 mg/dL (0.2-1.3); Calcium 8.1 mg/dL (8.4-10.2); Creatinine 1 2.19 mg/dL (0.66-1.25); EST GLOMERULAR FILTRATION RATE 32.5 ML/MIN; Potassium 4.4 mmol/L (3.5-5.1); Total Protein 6.4 g/dL (6.3-8.2)
[2023-06-19 06:38] LABS: Slide Review YES
[2023-06-19 07:56] LABS: INR 1.15 (0.8-3.0); PROTIME 12.4 SECONDS (9.4-12.5); PTT 30.8 SECONDS (25.1-36.5)
[2023-06-19] MEDS: HUMALOG SQ SCH ×3 (08:49→17:24)
[2023-06-19] MEDS: Lantus Insulin SQ SCH ×2 (09:12→21:32)
[2023-06-19] MEDS ORDERED: ROCEPHIN 1 Gm-D5w 50 ml Bag** 1 G/50 ML IVPB IV SCH (10:00)
[2023-06-19] MEDS ORDERED: PHARMACY DOSING REQUIRED: VANCOMYCIN IV SCH (10:00)
[2023-06-19] MEDS ORDERED: NORCO 5/325 MG PO PRN (10:19)
[2023-06-19] MEDS ORDERED: MOTRIN 600 MG PO PRN (10:20)
--- NOTE | 2023-06-19 11:18 | OP ---
SURGERY DATE/TIME: 06/18/2023 5972 PREOPERATIVE DIAGNOSES: 1) Diabetic foot ulcer, right and left. 2) Venous insufficiency ulcerations, right and left. 3) Dermatomyositis. 4) Wound to level of bone right tibia. 5) Peripheral neuropathy. POSTOPERATIVE DIAGNOSES: 1) Diabetic foot ulcer, right and left. 2) Venous insufficiency ulcerations, right and left. 3) Dermatomyositis. 4) Wound to level of bone right tibia. 5) Peripheral neuropathy. PROCEDURE: Incision and drainage with bone debridement right leg, soft tissue debridement to level of subcutaneous tissue left ankle. SURGEON: Odilon Cruz DPM. SUGAR CANE GROWER: None. ANESTHESIA: Monitored anesthesia care with a local block consisting of 10 cc of 1:1 mixture of 1% lidocaine plain and 0.5% bupivacaine plain injected in V block-type fashion. HEMOSTASIS: Pressure dressing. ESTIMATED BLOOD LOSS: Approximately 15 cc. MATERIALS: None. INJECTABLES: 10 cc of 1:1 mixture of 1% lidocaine plain and 0.5% bupivacaine plain injected in V block-type fashion to the right proximal tibia. INDICATION FOR SURGERY: Mika is a pleasant 62-year-old male known to my service for venous insufficiency ulcer. The patient had subsequently healed out all ulcers in the previous history. In the last month, the patient has experienced some new ulcerations that had developed to the right lower extremity. These are the worst that he has experienced in his history. He was concerned and presented to his primary care Jessica Encarnacion who sent him for referral to my service. On examination, cultures were taken and x-rays were taken demonstrating significant soft tissue calcification. On clinical examination, it does appear that the bone is exposed and there is some clinical indicators of infection at this time. Discussion was held with the patient in regards to treatment options and in regards to prevention of deep infection and potential loss of limb. As a result the patient was admitted to the floor for direct admission, IV antibiotics and aggressive debridement of the right ankle wound. The patient also does have wounds to the left lower extremity which were down to the level of the subcu for which we decided to proceed with a dressing as well. The patient understands all risks, complications and benefits of surgical intervention at this time including but not limited to infection, hematoma, seroma, possibility of delayed wound healing, nonwound healing and possible need for surgical intervention at a later date. No guarantees were provided as to the surgical outcome of surgical intervention. Plenty of time was allowed for the patient to ask questions which were answered to her apparent satisfaction. It is with that we decided to proceed. DESCRIPTION OF PROCEDURE AND FINDINGS: The patient is brought into the OR and placed on the OR table in the supine position. At this time monitored anesthesia care was administered until the patient was sedated. The bilateral lower extremities were prepped and draped in the typical sterile fashion and lowered onto the surgical field. At this time the right lower extremity was inspected. 10 cc total of a 1:1 mixture of 1% lidocaine plain and 0.5% bupivacaine plain was injected in V block-type fashion to the proximal tibial wound on the right. At this time a curette was utilized to debride the wound. Significant soft tissue calcifications were encountered secondary to the patient's dermatomyositis. As a result there was a small portion of the medial tibial which was identified and debrided which quality of the bone was relatively strong. Calcifications were seen at the fascial and subcutaneous level. At this time copious amounts of sterile saline were utilized to flush the surgical site. The following subcutaneous tissue was debrided utilizing a curette and rongeur to the right and left lower extremity. Following this, 1,000 ml of Bactisure was utilized to cleanse the right tibial wound and then 3 liters of sterile saline were utilized to flush the surgical site. Following this, soft tissue as well as bone cultures were obtained, handed off the field for soft tissue and bone assessment. A dressing consisting of Betadine, Adaptic, 4x4, Kerlix, ABD and MAURICE were applied to the patient's bilateral lower extremities with moderate compression. The patient was then reversed from anesthesia and returned to the postoperative anesthesia care unit with vital signs stable and vascular status intact. The patient handled the anesthesia as well as the procedure without significant complication. Postoperative orders as indicated in the patient's discharge chart.
[2023-06-19] MEDS: Ecotrin 325 MG PO SCH (11:29)
--- NOTE | 2023-06-19 11:46 | XRAY ---
4 seconds of fluoroscopy was used in surgery for a right lower leg bone debridement.
--- NOTE | 2023-06-19 14:22 | XRAY ---
Indication: Ultrasound guidance for PICC line placement. Initial sonographic imaging of the right upper extremity was performed for localization of patent veins. A patent basilic vein identified above the elbow. Ultrasound guidance was then used for PICC line insertion . Full PICC line insertion is reported separately.
--- NOTE | 2023-06-19 14:24 | XRAY ---
Indication: Long-term IV access and therapy for right lower leg infection. Informed consent obtained. Patient was placed on the fluoroscopic table in a supine position. Initial sonographic imaging of the right upper extremity was performed for localization of patent veins. The right upper extremity was then prepped and draped in sterile fashion. Tourniquet applied. 1% lidocaine plain used for local anesthesia. Using ultrasound guidance and a micropuncture needle, a basilic vein above the elbow was successfully percutaneously cannulized. A floppy tip 0.018 guidewire inserted. Tourniquet released. Needle was exchanged for a 5 Liberian dilator peel-away sheath catheter. Ultimately a 5 Liberian double-lumen PICC line was inserted over a longer 0.018 guidewire with the tip positioned in the distal SVC using fluoroscopic guidance. Guidewire removed. Both ports flushed with heparinized saline. Catheter was secured. Postoperative instructions and orders given. Patient discharged in good condition. Impression: Technically successful right upper extremity PICC line placement using ultrasound and fluoroscopic guidance. No immediate complications. Approximately 2 cc blood loss. Approximately 0.1 minute of fluoroscopy used. Catheter length is 37 cm.
[2023-06-19] MEDS: HYDROCODONE-ACETAMIN 10-325 MG PO PRN (14:42)
[2023-06-19] MEDS: VANCOMYCIN 1.25 GM/250 ML BAG 1.25 GM/250 ML PIGGYBACK IV SCH (14:42)
--- NOTE | 2023-06-19 14:53 | PCM.NOTE ---
Date and Time: 06/19/23 144 Subjective Assessment: 06/18/23 is a 62 year old male with Pmhx of HTN, type II DM, hepatitis C ( treated) , cirrhosis, CKD stage 3. He was seen in podiatry clinic today and then referred for IP admission due to the severity of his wounds. Currently BL legs are wrapped. was able to show wound to provider on her phone. Podiatry plans to take pt to surgery today for debridement. He has mild c/o pain. He denies CP, SOB, abd. pain, N/V/D. 06/19/23 Pt resting in bed. He explains he is feeling better. Pain is well controlled. BLLE are wrapped. Debridement with podiatry yesterday. PICC line placed. plan is for pt to stay until Saturday for IP antibiotics. He is to keep legs elevated and apply ice packs PRN. Antibiotics ordered per podiatry recs. He denies any further concerns at this time. - Review of Systems Constitutional: No Fever, No Chills Eyes: No Symptoms Ears, Nose, & Throat: No Symptoms Respiratory: No Cough, No Short Of Breath Cardiac: No Chest Pain, No Edema, No Syncope Abdominal/Gastrointestinal: No Abdominal Pain, No Nausea, No Vomiting, No Diarrhea Genitourinary Symptoms: No Dysuria Musculoskeletal: No Back Pain, No Neck Pain Skin: Other (BLLE wrapped), No Rash Neurological: No Dizziness, No Focal Weakness, No Sensory Changes Psychological: No Symptoms Endocrine: No Symptoms Hematologic/Lymphatic: No Symptoms Immunological/Allergic: No Symptoms Objective Exam General Appearance: no apparent distress, alert Neurologic Exam: alert, oriented x 3, cooperative, normal mood/affect, nml cerebellar function, sensation nml, No motor deficits Skin Exam: normal color, warm, dry Wound Assessment: Skin/Wound Assessment Wound/Incision Assessment Start: 06/19/23 08:55 Text: Status: Active Freq: Q6H Protocol: Document 06/19/23 08:00 LAM (Rec: 06/19/23 09:02 LAM [id number]) Wound/Incision Assessment Lower Other Wound Assessment Shift Assessment Wound Type ULCERATIONS Wound Stage Non Pressure Wound Dressing Status Dry & Intact Comment PT HAD I & D OF BILATERAL LEG WOUNDS ON 06/18, DRESSINGS PER DR. ANDIE ARE CLEAN, DRY AND INTACT AT THIS TIME Eye Exam: PERRL, EOMI, eyes nml inspection Ears, Nose, Throat Exam: normal ENT inspection, pharynx normal, moist mucous membranes Neck Exam: normal inspection, non-tender, supple, full range of motion Respiratory Exam: normal breath sounds, lungs clear, No respiratory distress Cardiovascular Exam: regular rate/rhythm, normal heart sounds Gastrointestinal/Abdomen Exam: soft, No tenderness, No mass Extremity Exam: normal inspection, normal range of motion, other (BLLE wrapped by podiatry) Back Exam: normal inspection, normal range of motion, No CVA tenderness, No vertebral tenderness Male Genitalia Exam: deferred Rectal Exam: deferred OBJECTIVE DATA Vital Signs: Vital Signs - 24 hr Temp Pulse Resp BP Pulse Ox 06/19/23 12:00 97.5 F 78 16 122/65 100 06/19/23 07:40 98.2 F 76 16 98/56 98 06/19/23 04:00 97.8 F 76 20 119/61 97 06/18/23 22:15 97.4 F 80 14 128/68 99 06/18/23 21:15 97.5 F 78 16 132/66 98 06/18/23 20:15 97.4 F 81 16 126/66 98 06/18/23 19:45 97.4 F 74 14 121/58 100 06/18/23 19:15 97.2 F 77 14 119/65 100 06/18/23 18:54 75 16 128/62 100 06/18/23 18:51 72 15 125/87 99 06/18/23 18:09 97.5 F 73 15 139/64 99 06/18/23 15:25 97.3 F 76 15 133/66 90 L Pain Assessment - Last Documented Pain Intensity 7 Pain Scale Used 0-10 Pain Scale Intake and Output: Intake & Output 06/17/23 06/18/23 06/19/23 06/20/23 11:59 11:59 11:59 11:59 Intake Total 640 0 Output Total 950 300 Balance -310 -300 Weight 98.066 kg 98.066 kg Lab Results: Lab Results-Last 24 Hours 06/18/23 06/18/23 06/18/23 Range/Units 14:13 14:13 14:25 WBC (4.0-10.5) x10^3/uL RBC (4.1-5.6) x10^6/uL Hgb (12.5-18.0) g/dL Hct (42-50) % MCV (78-100) fL MCH (26-32) pg MCHC (32-36) g/dL RDW (11.5-14.0) % Plt Count (150-450) x10^3/uL MPV (7.5-11.0) fL PT (9.4-12.5) SECONDS INR (0.8-3.0) APTT (25.1-36.5) SECONDS Sodium (137-145) mmol/L Potassium (3.5-5.1) mmol/L Chloride (98-107) mmol/L Carbon Dioxide (22-30) mmol/L Anion Gap (5-15) MEQ/L BUN (9-20) mg/dL Creatinine (0.66-1.25) mg/dL Estimated GFR ML/MIN Glucose (74-106) mg/dL POC Glucometer (74 to 106) mg/dL Hemoglobin A1c 7.73 H (4.5-6.0) % Calcium (8.4-10.2) mg/dL Total Bilirubin (0.2-1.3) mg/dL AST (17-59) U/L ALT (0-50) U/L Alkaline Phosphatase (38-126) U/L C-Reactive Prot, Quant 30 H (0-10) mg/L Serum Total Protein (6.3-8.2) g/dL Albumin (3.5-5.0) g/dL Slides for Path Review YES 06/18/23 06/18/23 06/19/23 Range/Units 18:11 21:52 05:00 WBC (4.0-10.5) x10^3/uL RBC (4.1-5.6) x10^6/uL Hgb (12.5-18.0) g/dL Hct (42-50) % MCV (78-100) fL MCH (26-32) pg MCHC (32-36) g/dL RDW (11.5-14.0) % Plt Count (150-450) x10^3/uL MPV (7.5-11.0) fL PT 12.4 (9.4-12.5) SECONDS INR 1.15 (0.8-3.0) APTT 30.8 (25.1-36.5) SECONDS Sodium (137-145) mmol/L Potassium (3.5-5.1) mmol/L Chloride (98-107) mmol/L Carbon Dioxide (22-30) mmol/L Anion Gap (5-15) MEQ/L BUN (9-20) mg/dL Creatinine (0.66-1.25) mg/dL Estimated GFR ML/MIN Glucose (74-106) mg/dL POC Glucometer 91 193 H (74 to 106) mg/dL Hemoglobin A1c (4.5-6.0) % Calcium (8.4-10.2) mg/dL Total Bilirubin (0.2-1.3) mg/dL AST (17-59) U/L ALT (0-50) U/L Alkaline Phosphatase (38-126) U/L C-Reactive Prot, Quant (0-10) mg/L Serum Total Protein (6.3-8.2) g/dL Albumin (3.5-5.0) g/dL Slides for Path Review 06/19/23 06/19/23 06/19/23 Range/Units 05:14 05:14 07:27 WBC 3.6 L (4.0-10.5) x10^3/uL RBC 2.94 L (4.1-5.6) x10^6/uL Hgb 8.9 L (12.5-18.0) g/dL Hct 28.0 L (42-50) % MCV 95.2 (78-100) fL MCH 30.3 (26-32) pg MCHC 31.8 L (32-36) g/dL RDW 14.2 H (11.5-14.0) % Plt Count 81 L (150-450) x10^3/uL MPV 10.8 (7.5-11.0) fL PT (9.4-12.5) SECONDS INR (0.8-3.0) APTT (25.1-36.5) SECONDS Sodium 137 (137-145) mmol/L Potassium 4.4 (3.5-5.1) mmol/L Chloride 113 H (98-107) mmol/L Carbon Dioxide 18 L (22-30) mmol/L Anion Gap 9.3 (5-15) MEQ/L BUN 26 H (9-20) mg/dL Creatinine 2.19 H (0.66-1.25) mg/dL Estimated GFR 32.5 ML/MIN Glucose 126 H (74-106) mg/dL POC Glucometer 112 H (74 to 106) mg/dL Hemoglobin A1c (4.5-6.0) % Calcium 8.1 L (8.4-10.2) mg/dL Total Bilirubin 1.10 (0.2-1.3) mg/dL AST 40 (17-59) U/L ALT 27 (0-50) U/L Alkaline Phosphatase 249 H (38-126) U/L C-Reactive Prot, Quant (0-10) mg/L Serum Total Protein 6.4 (6.3-8.2) g/dL Albumin 2.5 L (3.5-5.0) g/dL Slides for Path Review YES 06/19/23 Range/Units 11:49 WBC (4.0-10.5) x10^3/uL RBC (4.1-5.6) x10^6/uL Hgb (12.5-18.0) g/dL Hct (42-50) % MCV (78-100) fL MCH (26-32) pg MCHC (32-36) g/dL RDW (11.5-14.0) % Plt Count (150-450) x10^3/uL MPV (7.5-11.0) fL PT (9.4-12.5) SECONDS INR (0.8-3.0) APTT (25.1-36.5) SECONDS Sodium (137-145) mmol/L Potassium (3.5-5.1) mmol/L Chloride (98-107) mmol/L Carbon Dioxide (22-30) mmol/L Anion Gap (5-15) MEQ/L BUN (9-20) mg/dL Creatinine (0.66-1.25) mg/dL Estimated GFR ML/MIN Glucose (74-106) mg/dL POC Glucometer 140 H (74 to 106) mg/dL Hemoglobin A1c (4.5-6.0) % Calcium (8.4-10.2) mg/dL Total Bilirubin (0.2-1.3) mg/dL AST (17-59) U/L ALT (0-50) U/L Alkaline Phosphatase (38-126) U/L C-Reactive Prot, Quant (0-10) mg/L Serum Total Protein (6.3-8.2) g/dL Albumin (3.5-5.0) g/dL Slides for Path Review Radiology Exams: Radiology Procedures Category Date Time Status GUIDE FOR VASCULAR ACCESS [US] Routine Exams 06/19/23 12:23 Completed PICC LINE PLACEMENT Routine Exams 06/19/23 13:00 Completed Multi-Disciplinary Progress Notes: Multi-Disciplinary Progress Notes 06/19/23 12:21 Case Management Note by Aranza Bailey ROLLING WALKER ORDERED THRU [facility] PER SUGGESTIONS FROM PHYSICAL THERAPY TO MAINTAIN WT BEARING RESTRICTIONS Initialized on 06/19/23 12:21 - END OF NOTE 06/19/23 11:56 Case Management Note by Aranza Bailey Addendum entered by Aranza Bailey 06/19/23 12:12: PATIENT REPORTS HE HAS HAD GOOD [facility] IN THE PAST AND WOULD LIKE THEM BACK- REFERRAL SENT AT THIS TIME Original Note: PATIENT CONTINUES TO PLAN TO DC HOME WITH HOME INFUSIONS. [facility] CAN SUPPLY THE MEDS. PATIENT TO GET PICC LINE TODAY. WILL FIND [facility] COMPANY TO MANAGE- PATIENT AGREEABLE WITH ANY COMPANY THAT CAN SERVICE HIM. ONCE ANTIBIOTIC IS DECIDED FOR DC- THIS WILL NEED SENT TO [facility] WELL GIVEN AT LEAST 1 X IN HOUSE PRIOR TO DC Initialized on 06/19/23 11:56 - END OF NOTE 06/18/23 16:15 (created 06/19/23 11:36) Case Management Note by Grisel Castillo PER REP AT [facility], PT HAS MET ALL DEDUCTIBLES, AND IV ABX AND SUPPLIES WOULD BE PAID AT 100%. Initialized on 06/19/23 11:36 - END OF NOTE Assessment/Plan (1) Ulcer of extremity due to chronic venous insufficiency Current Visit: No Status: Acute Assessment & Plan: - XR RLE 06/17 2 view right lower leg demonstrates diffuse tiny subcutaneous soft tissue calcifications favoring dermatomyositis. Incidental age-related osteopenia. No other bony, articular, or soft tissue abnormalities. - Podiatry to take to surgery today for debridement - Start antibiotics per podiatry orders that were written, vancomycin and zosyn - wound culture from 06/17 - gram negative- sensitivity pending - pain control - PICC line placement for OP antibiotics - Consider MRI - ESR 65 - PT/OT Code(s): L98.499 - NON-PRESSURE CHRONIC ULCER OF SKIN OF SITES W UNSP SEVERITY; I87.2 - VENOUS INSUFFICIENCY (CHRONIC) (PERIPHERAL) (2) DM2 (diabetes mellitus, type 2) Current Visit: No Status: Chronic Assessment & Plan: - Continue home dose of insulin - Hold oral medication - humalog S/S added - A1C 7.73 - uncontrolled 06/19 - nurse explained pt tells staff how much insulin to give not what is ordered. (3) Oxygen decrease Current Visit: Yes Status: Acute Assessment & Plan: 06/18 - O2 90% on RA - Keep oxygen > 92% - PRN Oxygen 06/19 - resolved - RA 100% today Code(s): R09.02 - HYPOXEMIA (4) Acute on chronic renal failure Current Visit: Yes Status: Acute Assessment & Plan: - Follows with Dr. Boswell - Creat 2.19, baseline 1.99 - monitor Code(s): N17.9 - ACUTE KIDNEY FAILURE, UNSPECIFIED; N18.9 - CHRONIC KIDNEY DISEASE, UNSPECIFIED (5) Anemia Current Visit: Yes Status: Acute Assessment & Plan: 06/19 - Iron panel - Hgb 8.9 monitor - 2nd to CKD Code(s): D64.9 - ANEMIA, UNSPECIFIED
[2023-06-19 16:24] LABS: Iron 59 ug/dL (49-181); Iron Saturation 24 % (20-39); TIBC 247 ug/dL (261-497)
[2023-06-19] MEDS: CORTISONE 1% CREAM TP PRN (16:59)
[2023-06-19 17:06] LABS: Ferritin 45.6 ng/mL (17.9-464)
[2023-06-20 04:56] LABS: Hematocrit 25.3 % (42-50); Hemoglobin 7.9 g/dL (12.5-18.0); Mean Cell Volume 94.8 fL (78-100); Mean Corpuscular Hemoglobin 29.6 pg (26-32); Mean Corpuscular Hgb Concent. 31.2 g/dL (32-36); Platelet Count 70 x10^3/uL (150-450); Red Blood Count 2.67 x10^6/uL (4.1-5.6); Red Cell Distribution Width 14.1 % (11.5-14.0); White Blood Count 3.3 x10^3/uL (4.0-10.5)
[2023-06-20 05:18] LABS: ANION GAP 9.6 MEQ/L (5-15); BILIRUBIN,TOTAL 0.8 mg/dL (0.2-1.3); Calcium 7.5 mg/dL (8.4-10.2); Creatinine 1 2.34 mg/dL (0.66-1.25); EST GLOMERULAR FILTRATION RATE 30.1 ML/MIN; Potassium 4.2 mmol/L (3.5-5.1); Total Protein 5.5 g/dL (6.3-8.2)
[2023-06-20] MEDS: PIPERACILLIN/TAZOBACTAM 3.375 GM in Sodium Chloride 100ML MINI-BAG PLUS 100 ML IV SCH (05:51)
[2023-06-20 08:14] LABS: Slide Review YES
[2023-06-20] MEDS: HUMALOG SQ SCH ×3 (08:29→17:40)
[2023-06-20] MEDS: Lantus Insulin SQ SCH ×2 (09:43→22:23)
[2023-06-20] MEDS: CORTISONE 1% CREAM TP PRN (09:46)
[2023-06-20] MEDS: Ecotrin 325 MG PO SCH (10:48)
[2023-06-20] MEDS ORDERED: Piperacillin/Tazobactam 2.25 GM 2.25 GM in Sodium Chloride 100ML MINI-BAG PLUS 100 ML IV SCH (12:00)
[2023-06-20] MEDS: MAXIPIME 1 GM** 1 G in Dextrose 5%/Water IV Soln. 100ML PLUS BAG 100 ML IV SCH ×2 (12:38→22:28)
[2023-06-20 15:10] LABS: Hematocrit 27.5 % (37.5-51.0)
--- NOTE | 2023-06-20 15:35 | PCM.NOTE ---
Date and Time: 06/20/23 1530 Subjective Assessment: 06/18/23 is a 62 year old male with Pmhx of HTN, type II DM, hepatitis C ( treated) , cirrhosis, CKD stage 3. He was seen in podiatry clinic today and then referred for IP admission due to the severity of his wounds. Currently BL legs are wrapped. was able to show wound to provider on her phone. Podiatry plans to take pt to surgery today for debridement. He has mild c/o pain. He denies CP, SOB, abd. pain, N/V/D. 06/19/23 Pt resting in bed. He explains he is feeling better. Pain is well controlled. BLLE are wrapped. Debridement with podiatry yesterday. PICC line placed. plan is for pt to stay until Saturday for IP antibiotics. He is to keep legs elevated and apply ice packs PRN. Antibiotics ordered per podiatry recs. He denies any further concerns at this time. 06/20/23 Pt resting in bed. Anesthesia came to see to see pt today and wants medical clearance for pancytopenia for tomorrow's procedure. Dr. Chandra ok with medical clearance for this. Discussed with Podiatry nurse about d/c of vancomycin due to kidney function. Dr. Donald changed antibiotics to Cefepime and d/c'd Zosyn as well. Pt denies any further concerns at this time. - Review of Systems Constitutional: No Fever, No Chills Eyes: No Symptoms Ears, Nose, & Throat: No Symptoms Respiratory: No Cough, No Short Of Breath Cardiac: No Chest Pain, No Edema, No Syncope Abdominal/Gastrointestinal: No Abdominal Pain, No Nausea, No Vomiting, No Diarrhea Genitourinary Symptoms: No Dysuria Musculoskeletal: No Back Pain, No Neck Pain Skin: Skin Lesions, Other (BLLE wrapped.), No Rash Neurological: No Dizziness, No Focal Weakness, No Sensory Changes Psychological: No Symptoms Endocrine: No Symptoms Hematologic/Lymphatic: No Symptoms Immunological/Allergic: No Symptoms Objective Exam General Appearance: no apparent distress, alert Neurologic Exam: alert, oriented x 3, cooperative, normal mood/affect, nml cerebellar function, sensation nml, No motor deficits Skin Exam: normal color, warm, dry Wound Assessment: Skin/Wound Assessment Wound/Incision Assessment Start: 06/19/23 08:55 Text: Status: Active Freq: Q6H Protocol: Document 06/20/23 09:00 VIJI (Rec: 06/20/23 09:53 VIJI [id number]) Wound/Incision Assessment Lower Other Wound Assessment Shift Assessment Wound Type Ulcerations Wound Stage Non Pressure Wound Dressing Status Changed Comment Dressings changed this a.m. per Dr Donald's nurse Wound Photo Photo Taken No Eye Exam: PERRL, EOMI, eyes nml inspection Ears, Nose, Throat Exam: normal ENT inspection, pharynx normal, moist mucous membranes Neck Exam: normal inspection, non-tender, supple, full range of motion Respiratory Exam: normal breath sounds, lungs clear, No respiratory distress Cardiovascular Exam: regular rate/rhythm, normal heart sounds, normal peripheral pulses Gastrointestinal/Abdomen Exam: soft, No tenderness, No mass Extremity Exam: normal inspection, normal range of motion, other (BLLE wrapped) Back Exam: normal inspection, normal range of motion, No CVA tenderness, No vertebral tenderness Male Genitalia Exam: deferred Rectal Exam: deferred OBJECTIVE DATA Vital Signs: Vital Signs - 24 hr Temp Pulse Resp BP Pulse Ox 06/20/23 11:45 97.7 F 73 18 107/60 95 06/20/23 07:32 97.5 F 75 17 114/68 94 L 06/20/23 04:00 97.8 F 68 16 116/64 95 06/19/23 23:39 96.9 F 79 17 120/56 96 06/19/23 20:00 97.1 F 67 18 99/53 98 06/19/23 16:00 97.7 F 77 16 102/62 99 Pain Assessment - Last Documented Pain Intensity 4 Pain Scale Used 0-10 Pain Scale Intake and Output: Intake & Output 06/18/23 06/19/23 06/20/23 06/21/23 11:59 11:59 11:59 11:59 Intake Total 640 900 Output Total 950 1175 300 Balance -310 -275 -300 Weight 98.066 kg 98.066 kg Lab Results: Lab Results-Last 24 Hours 06/19/23 06/19/23 06/19/23 Range/Units 04:00 04:00 16:41 WBC (4.0-10.5) x10^3/uL RBC (4.1-5.6) x10^6/uL Hgb (12.5-18.0) g/dL Hct (42-50) % MCV (78-100) fL MCH (26-32) pg MCHC (32-36) g/dL RDW (11.5-14.0) % Plt Count (150-450) x10^3/uL MPV (7.5-11.0) fL APTT (25.1-36.5) SECONDS Sodium (137-145) mmol/L Potassium (3.5-5.1) mmol/L Chloride (98-107) mmol/L Carbon Dioxide (22-30) mmol/L Anion Gap (5-15) MEQ/L BUN (9-20) mg/dL Creatinine (0.66-1.25) mg/dL Estimated GFR ML/MIN Glucose (74-106) mg/dL POC Glucometer 137 H (74 to 106) mg/dL Calcium (8.4-10.2) mg/dL Iron 59 (49-181) ug/dL TIBC 247 L (261-497) ug/dL Iron Saturation 24 (20-39) % Ferritin 45.6 (17.9-464) ng/mL Total Bilirubin (0.2-1.3) mg/dL AST (17-59) U/L ALT (0-50) U/L Alkaline Phosphatase (38-126) U/L Serum Total Protein (6.3-8.2) g/dL Albumin (3.5-5.0) g/dL Vitamin B12 992 H (239-931) pg/mL 25-OH Vitamin D Total (30-100) ng/mL Slides for Path Review 06/19/23 06/20/23 06/20/23 Range/Units 21:00 04:00 04:00 WBC 3.3 L (4.0-10.5) x10^3/uL RBC 2.67 L (4.1-5.6) x10^6/uL Hgb 7.9 L (12.5-18.0) g/dL Hct 25.3 L (42-50) % MCV 94.8 (78-100) fL MCH 29.6 (26-32) pg MCHC 31.2 L (32-36) g/dL RDW 14.1 H (11.5-14.0) % Plt Count 70 L (150-450) x10^3/uL MPV 11.0 (7.5-11.0) fL APTT (25.1-36.5) SECONDS Sodium 137 (137-145) mmol/L Potassium 4.2 (3.5-5.1) mmol/L Chloride 114 H (98-107) mmol/L Carbon Dioxide 18 L (22-30) mmol/L Anion Gap 9.6 (5-15) MEQ/L BUN 27 H (9-20) mg/dL Creatinine 2.34 H (0.66-1.25) mg/dL Estimated GFR 30.1 ML/MIN Glucose 89 (74-106) mg/dL POC Glucometer 127 H (74 to 106) mg/dL Calcium 7.5 L (8.4-10.2) mg/dL Iron (49-181) ug/dL TIBC (261-497) ug/dL Iron Saturation (20-39) % Ferritin (17.9-464) ng/mL Total Bilirubin 0.80 (0.2-1.3) mg/dL AST 36 (17-59) U/L ALT 22 (0-50) U/L Alkaline Phosphatase 198 H (38-126) U/L Serum Total Protein 5.5 L (6.3-8.2) g/dL Albumin 2.0 L (3.5-5.0) g/dL Vitamin B12 (239-931) pg/mL 25-OH Vitamin D Total (30-100) ng/mL Slides for Path Review YES 06/20/23 06/20/23 06/20/23 Range/Units 07:04 11:04 11:04 WBC (4.0-10.5) x10^3/uL RBC (4.1-5.6) x10^6/uL Hgb (12.5-18.0) g/dL Hct (42-50) % MCV (78-100) fL MCH (26-32) pg MCHC (32-36) g/dL RDW (11.5-14.0) % Plt Count (150-450) x10^3/uL MPV (7.5-11.0) fL APTT 37.7 H (25.1-36.5) SECONDS Sodium (137-145) mmol/L Potassium (3.5-5.1) mmol/L Chloride (98-107) mmol/L Carbon Dioxide (22-30) mmol/L Anion Gap (5-15) MEQ/L BUN (9-20) mg/dL Creatinine (0.66-1.25) mg/dL Estimated GFR ML/MIN Glucose (74-106) mg/dL POC Glucometer 84 (74 to 106) mg/dL Calcium (8.4-10.2) mg/dL Iron (49-181) ug/dL TIBC (261-497) ug/dL Iron Saturation (20-39) % Ferritin (17.9-464) ng/mL Total Bilirubin (0.2-1.3) mg/dL AST (17-59) U/L ALT (0-50) U/L Alkaline Phosphatase (38-126) U/L Serum Total Protein (6.3-8.2) g/dL Albumin (3.5-5.0) g/dL Vitamin B12 (239-931) pg/mL 25-OH Vitamin D Total 26.4 L (30-100) ng/mL Slides for Path Review 06/20/23 06/20/23 Range/Units 11:31 14:08 WBC (4.0-10.5) x10^3/uL RBC (4.1-5.6) x10^6/uL Hgb (12.5-18.0) g/dL Hct (42-50) % MCV (78-100) fL MCH (26-32) pg MCHC (32-36) g/dL RDW (11.5-14.0) % Plt Count (150-450) x10^3/uL MPV (7.5-11.0) fL APTT (25.1-36.5) SECONDS Sodium (137-145) mmol/L Potassium (3.5-5.1) mmol/L Chloride (98-107) mmol/L Carbon Dioxide (22-30) mmol/L Anion Gap (5-15) MEQ/L BUN (9-20) mg/dL Creatinine (0.66-1.25) mg/dL Estimated GFR ML/MIN Glucose (74-106) mg/dL POC Glucometer 143 H 138 H (74 to 106) mg/dL Calcium (8.4-10.2) mg/dL Iron (49-181) ug/dL TIBC (261-497) ug/dL Iron Saturation (20-39) % Ferritin (17.9-464) ng/mL Total Bilirubin (0.2-1.3) mg/dL AST (17-59) U/L ALT (0-50) U/L Alkaline Phosphatase (38-126) U/L Serum Total Protein (6.3-8.2) g/dL Albumin (3.5-5.0) g/dL Vitamin B12 (239-931) pg/mL 25-OH Vitamin D Total (30-100) ng/mL Slides for Path Review Radiology Exams: Radiology Procedures Category Date Time Status FLUOROSCOPY UP TO 1 HR Routine Exams 06/18/23 15:37 Completed GUIDE FOR VASCULAR ACCESS [US] Routine Exams 06/19/23 12:23 Completed LOWER LEG Routine Exams 06/18/23 15:37 Completed PICC LINE PLACEMENT Routine Exams 06/19/23 13:00 Completed Multi-Disciplinary Progress Notes: Multi-Disciplinary Progress Notes 06/20/23 14:22 Physical Therapy Note by Tila([id number])Miguelina PT. WAS SEEN BY P.T .THIS A.M. REPORTS R LL PN AT 10/05 W/ PN MEDS. POST-OP DRESSINGS INTACT. PT. IN BED UPON P.T. ARRIVAL TO ROOM AND AGREEABLE TO P.T. PERFORMED SUPINE TO SIT MOD I W/ HOB ELEVATED. SIT TO STAND PERFORMED W/ CGA- SBA. AMBULATED 50' W/ RW AND PWB R LE AND FWB L LE. PT. REQUIRED V.C. FOR SEQUENCING LEADING W/ R LE AND TO IMPROVE ERECT TRUNK POSTURE. PT. ABLE TO STEP UP AND DOWN ON 6" STEP W/ CGA - W/ CUES TO LEAD W/ L UE FOR ASCENT AND R LE FOR DESCENT. PT. PROVIDED W/ HANDOUT FOR PROPER STEP NEGOTIATION WELL. PT. TO RETURN TO SX TOMORROW FOR SKIN GRAFTING AND D/C HOME W/ HHC WHEN STABLE. WILL CONT. P.T. TO ADDRESS GAIT AND TRANSFER INDEPENDENCE UNTIL D/C. Initialized on 06/20/23 14:22 - END OF NOTE 06/20/23 13:37 Case Management Note by Aranza Bailey IV INFUSION ORDERS FAXED TO [facility] ALONG WITH INFO ON PICC LINE PICC LINE AND INFUSION ORDERS ALSO FAXED TO [facility] Initialized on 06/20/23 13:37 - END OF NOTE 06/20/23 10:58 Case Management Note by Aranza Bailey S/W ENRICO AT [facility]- THEY HAVE ACCEPTED PATIENT. THEY KNOW THE TENTATIVE PLAN IS TO DC TOMORROW AFTER OR. THEY REPORT THEY WILL BE ABLE TO START ANTIBIOTIC ON SATURDAY ANYTIME PRIOR TO 3PM THEY WILL NEED NOTIFIED AT DC AT [phone]. THEY WILL NEED FAXED THE DC INSTRUCTIONS, DC MED LIST AND DC SUMMARY TO [phone] Initialized on 06/20/23 10:58 - END OF NOTE 06/20/23 07:16 Pharmacy Note by Misael Johnson Creatinine continues to raise. Will decrease Zosyn to 2.25gm dose per renal dosing policy. Initialized on 06/20/23 07:16 - END OF NOTE Assessment/Plan (1) Ulcer of extremity due to chronic venous insufficiency Current Visit: No Status: Acute Code(s): L98.499 - NON-PRESSURE CHRONIC ULCER OF SKIN OF SITES W UNSP SEVERITY; I87.2 - VENOUS INSUFFICIENCY (CHRONIC) (PERIPHERAL) (2) DM2 (diabetes mellitus, type 2) Current Visit: No Status: Chronic (3) Oxygen decrease Current Visit: Yes Status: Acute Code(s): R09.02 - HYPOXEMIA (4) Acute on chronic renal failure Current Visit: Yes Status: Acute Code(s): N17.9 - ACUTE KIDNEY FAILURE, UNSPECIFIED; N18.9 - CHRONIC KIDNEY DISEASE, UNSPECIFIED (5) Anemia Current Visit: Yes Status: Acute Assessment & Plan: (1) Ulcer of extremity due to chronic venous insufficiency Current Visit: No Status: Acute Assessment & Plan: - XR RLE 06/17 2 view right lower leg demonstrates diffuse tiny subcutaneous soft tissue calcifications favoring dermatomyositis. Incidental age-related osteopenia. No other bony, articular, or soft tissue abnormalities. - Podiatry to take to surgery today for debridement - Start antibiotics per podiatry orders that were written, vancomycin and zosyn - wound culture from 06/17 - gram negative- sensitivity pending - pain control - PICC line placement for OP antibiotics - Consider MRI - ESR 65 - PT/OT 06/20 - Antibiotics changed to cefepime Code(s): L98.499 - NON-PRESSURE CHRONIC ULCER OF SKIN OF SITES W UNSP SEVERITY; I87.2 - VENOUS INSUFFICIENCY (CHRONIC) (PERIPHERAL) (2) DM2 (diabetes mellitus, type 2) Current Visit: No Status: Chronic Assessment & Plan: - Continue home dose of insulin - Hold oral medication - humalog S/S added - A1C 7.73 - uncontrolled 06/19 - nurse explained pt tells staff how much insulin to give not what is ordered. (3) Oxygen decrease Current Visit: Yes Status: Acute Assessment & Plan: 06/18 - O2 90% on RA - Keep oxygen > 92% - PRN Oxygen 06/19 - resolved - RA 100% today Code(s): R09.02 - HYPOXEMIA (4) Acute on chronic renal failure Current Visit: Yes Status: Acute Assessment & Plan: - Follows with Dr. Boswell - Creat 2.19, baseline 1.99 - monitor Code(s): N17.9 - ACUTE KIDNEY FAILURE, UNSPECIFIED; N18.9 - CHRONIC KIDNEY DISEASE, UNSPECIFIED (5) Anemia Current Visit: Yes Status: Acute Assessment & Plan: 06/19 - Iron panel - Hgb 8.9 monitor - 2nd to CKD 06/20 - Medical clearance for pancytopenia - Hgb stable at 7.9 Code(s): D64.9 - ANEMIA, UNSPECIFIED
[2023-06-20] MEDS: HYDROCODONE-ACETAMIN 10-325 MG PO PRN (15:37)
--- NOTE | 2023-06-20 17:22 | PCM.CONS ---
Podiatry HPI - Consult Date of Consultation Date: 06/20/23 Reason for Consult: venous insufficency/ dermatomyositis leg wounds Consulting Provider: ANDIE ROSE DPM - [facility] History of Present Illness: In bed this morning resting. No significant pain. No complaints Medications & Allergies Home Medications: Home Medication List Insulin Glargine,Hum.rec.anlog [Basaglar Kwikpen U-100] 18 unit SQ BID 05/21/22 [History Confirmed 06/18/23] Insulin Lispro [Humalog] 15 unit SQ TIDAC 05/21/22 [History Confirmed 06/18/23] Semaglutide [Rybelsus] 7 mg PO DAILY 06/18/23 [History Confirmed 06/18/23] Cefepime HCl 1 gm [Maxipime 1 gm] 1 g IV BID #42 06/20/23 [Rx] Allergies/Adverse Reactions: Allergies Allergy/AdvReac Type Severity Reaction Status Date / Time No Known Drug Allergies Allergy Verified 01/09/23 18:54 - Past Medical History Past Medical History: Yes Neurological History: No Pertinent History ENT History: No Pertinent History Cardiac History: Hypertension Respiratory History: No Pertinent History Endocrine Medical History: Diabetes Type II, Liver Disease Musculoskelatal History: Fractures GI Medical History: Cirrhosis, Hepatitis History: Renal Disease Pyscho-Social History: No Pertinent History Male Reproductive Disorders: No Pertinent History Comment: HX OF HEP C (TREATED AND "CURED"). STAGE 2-3 KIDNEY DISEASE. HX FALL WITH BACK "FRACTURE" BUT NO SURGERY. HX OF SURGERY FOR SCROTAL ABSCESS. PATIENT REPORTS A1C HAS DECREASED FROM 12 TO 7.? BUT BLOOD SUGARS CONSISTENTLY ABOVE 200. - Past Surgical History Past Surgical History: Yes Neuro Surgical History: No Pertinent History Cardiac History: No Pertinent History Respiratory Surgery: No Pertinent History GI Surgical History: No Pertinent History Genitourinary Surgical Hx: Kidney Surgery Musculskeletal Surgical Hx: No Pertinent History Male Surgical History: No Pertinent History Other Surgical History: liver biopsy, finger, scrotal abscess - Social History Smoking Status: Former smoker Exposure to second hand smoke: No Alcohol: None Drug Use: none Significant Family History: no pertinent family hx Physical Exam - General General Appearance: no apparent distress - Neuro Neurologic: Epicritic and protopathic (diminshed proximally intact) - Vascular Peripheral Pulses: Posterior tibialis: 2+, Dorsalis-Pedis: 2+ Capillary Refill Time: < 3 seconds Hair Growth: diminished Varicosities: Positive Edema: Pitting Edema Degree: 2+ Skin: Mild edema (hypertrophic with brawny edema and hemosiderin staining) - Muscular Muscle Strength: 5/5 on all 4 quadrants - Narrative Narrative Physical Exam: Podiatry Physical Exam wound with significant calcifications to right anterior tibial midshaft minor exposed bone however largely fibrotic and granulation tissue in a 65% to 35% ratio. Remain wounds to bilateral lower extremity granular in nature. Results - Labs Lab/Micro Results: Lab Results-Last 24 Hours 06/19/23 06/19/23 06/20/23 Range/Units 15:30 21:00 04:00 WBC 3.3 L (4.0-10.5) x10^3/uL RBC 2.67 L (4.1-5.6) x10^6/uL Hgb 7.9 L (12.5-18.0) g/dL Hct 27.5 L 25.3 L (37.5-51.0) % MCV 94.8 (78-100) fL MCH 29.6 (26-32) pg MCHC 31.2 L (32-36) g/dL RDW 14.1 H (11.5-14.0) % Plt Count 70 L (150-450) x10^3/uL MPV 11.0 (7.5-11.0) fL APTT (25.1-36.5) SECONDS Sodium (137-145) mmol/L Potassium (3.5-5.1) mmol/L Chloride (98-107) mmol/L Carbon Dioxide (22-30) mmol/L Anion Gap (5-15) MEQ/L BUN (9-20) mg/dL Creatinine (0.66-1.25) mg/dL Estimated GFR ML/MIN Glucose (74-106) mg/dL POC Glucometer 127 H (74 to 106) mg/dL Calcium (8.4-10.2) mg/dL Total Bilirubin (0.2-1.3) mg/dL AST (17-59) U/L ALT (0-50) U/L Alkaline Phosphatase (38-126) U/L Serum Total Protein (6.3-8.2) g/dL Albumin (3.5-5.0) g/dL 25-OH Vitamin D Total (30-100) ng/mL RBC Folate Hemolysate 420.0 (Not Estab.) ng/mL RBC Folate 1527 (>498) ng/mL Slides for Path Review YES 06/20/23 06/20/23 06/20/23 Range/Units 04:00 07:04 11:04 WBC (4.0-10.5) x10^3/uL RBC (4.1-5.6) x10^6/uL Hgb (12.5-18.0) g/dL Hct (37.5-51.0) % MCV (78-100) fL MCH (26-32) pg MCHC (32-36) g/dL RDW (11.5-14.0) % Plt Count (150-450) x10^3/uL MPV (7.5-11.0) fL APTT (25.1-36.5) SECONDS Sodium 137 (137-145) mmol/L Potassium 4.2 (3.5-5.1) mmol/L Chloride 114 H (98-107) mmol/L Carbon Dioxide 18 L (22-30) mmol/L Anion Gap 9.6 (5-15) MEQ/L BUN 27 H (9-20) mg/dL Creatinine 2.34 H (0.66-1.25) mg/dL Estimated GFR 30.1 ML/MIN Glucose 89 (74-106) mg/dL POC Glucometer 84 (74 to 106) mg/dL Calcium 7.5 L (8.4-10.2) mg/dL Total Bilirubin 0.80 (0.2-1.3) mg/dL AST 36 (17-59) U/L ALT 22 (0-50) U/L Alkaline Phosphatase 198 H (38-126) U/L Serum Total Protein 5.5 L (6.3-8.2) g/dL Albumin 2.0 L (3.5-5.0) g/dL 25-OH Vitamin D Total 26.4 L (30-100) ng/mL RBC Folate Hemolysate (Not Estab.) ng/mL RBC Folate (>498) ng/mL Slides for Path Review 06/20/23 06/20/23 06/20/23 Range/Units 11:04 11:31 14:08 WBC (4.0-10.5) x10^3/uL RBC (4.1-5.6) x10^6/uL Hgb (12.5-18.0) g/dL Hct (37.5-51.0) % MCV (78-100) fL MCH (26-32) pg MCHC (32-36) g/dL RDW (11.5-14.0) % Plt Count (150-450) x10^3/uL MPV (7.5-11.0) fL APTT 37.7 H (25.1-36.5) SECONDS Sodium (137-145) mmol/L Potassium (3.5-5.1) mmol/L Chloride (98-107) mmol/L Carbon Dioxide (22-30) mmol/L Anion Gap (5-15) MEQ/L BUN (9-20) mg/dL Creatinine (0.66-1.25) mg/dL Estimated GFR ML/MIN Glucose (74-106) mg/dL POC Glucometer 143 H 138 H (74 to 106) mg/dL Calcium (8.4-10.2) mg/dL Total Bilirubin (0.2-1.3) mg/dL AST (17-59) U/L ALT (0-50) U/L Alkaline Phosphatase (38-126) U/L Serum Total Protein (6.3-8.2) g/dL Albumin (3.5-5.0) g/dL 25-OH Vitamin D Total (30-100) ng/mL RBC Folate Hemolysate (Not Estab.) ng/mL RBC Folate (>498) ng/mL Slides for Path Review Accuchecks Date 06/20/23 Date 06/20/23 Date 06/20/23 Time 16:19 - Radiology Impressions Radiology Exams & Impressions: Radiology Procedures Category Date Time Status GUIDE FOR VASCULAR ACCESS [US] Routine Exams 06/19/23 12:23 Completed PICC LINE PLACEMENT Routine Exams 06/19/23 13:00 Completed - Other Procedures and Tests Respiratory Therapy 06/20/23 09:22 EKG REPEAT IN AM Assessment/Plan (1) Dermatomyositis Current Visit: Yes Status: Acute Assessment & Plan: Patient examination and evaluation Radiograph reviewed in correlation with clinical examination consistent with dermatomyositis as there is soft tissue calcification in conjunction with venous insufficiency ulceration Soft tissue biopsies preformed intraoperatively to confirm Plan to proceed tomorrow with repeat debridement to level of bone and application of synthetic skin substitute IV abx to continue 3 weeks for soft tissue infection- e.coli and pseudomonas- vancomycin zosyn discontinued for maxipime 1g -awaiting bone biopsies. platelets low at this time hold DVT prophylaxis. WBC relatively low as well. proceed with hematology consult on discharge. [facility] order for home infusion and dressing changes- no changes 1st week after graft placed Will follow to OR saturday for graft placement OK to d/c home from my standpoint and follow up outpatient. Code(s): M33.90 - DERMATOPOLYMYOSITIS, UNSP, ORGAN INVOLVEMENT UNSPECIFIED (2) Chronic venous insufficiency of lower extremity Current Visit: No Status: Chronic Code(s): I87.2 - VENOUS INSUFFICIENCY (CHRONIC) (PERIPHERAL) (3) Localized edema due to fluid overload Current Visit: No Status: Acute Code(s): E87.70 - FLUID OVERLOAD, UNSPECIFIED (4) Ulcer of extremity due to chronic venous insufficiency Current Visit: No Status: Acute Code(s): L98.499 - NON-PRESSURE CHRONIC ULCER OF SKIN OF SITES W UNSP SEVERITY; I87.2 - VENOUS INSUFFICIENCY (CHRONIC) (PERIPHERAL) (5) DM2 (diabetes mellitus, type 2) Current Visit: No Status: Chronic (6) Lung granuloma Current Visit: No Status: Acute Code(s): J84.10 - PULMONARY FIBROSIS, UNSPECIFIED (7) Chronic renal insufficiency Current Visit: No Status: Acute Code(s): N18.9 - CHRONIC KIDNEY DISEASE, UNSPECIFIED (8) Cellulitis Current Visit: No Status: Acute Qualifiers: Site of cellulitis: extremity Laterality: right Code(s): L03.90 - CELLULITIS, UNSPECIFIED
[2023-06-21 05:08] LABS: Hematocrit 24.9 % (42-50); Mean Cell Volume 94.3 fL (78-100); Mean Corpuscular Hemoglobin 30.3 pg (26-32); Mean Corpuscular Hgb Concent. 32.1 g/dL (32-36); Mean Platelet Volume 10.5 fL (7.5-11.0); Platelet Count 69 x10^3/uL (150-450); Red Blood Count 2.64 x10^6/uL (4.1-5.6); Red Cell Distribution Width 14.1 % (11.5-14.0); White Blood Count 3.2 x10^3/uL (4.0-10.5)
[2023-06-21 05:19] LABS: INR 1.14 (0.8-3.0); PROTIME 12.3 SECONDS (9.4-12.5)
[2023-06-21 05:26] LABS: ALBUMIN 2.2 g/dL (3.5-5.0); ANION GAP 12.4 MEQ/L (5-15); BILIRUBIN,TOTAL 0.6 mg/dL (0.2-1.3); Calcium 7.8 mg/dL (8.4-10.2); Creatinine 1 2.5 mg/dL (0.66-1.25); Direct Bilirubin 0.2 mg/dL (0.0-0.4); EST GLOMERULAR FILTRATION RATE 27.9 ML/MIN; Potassium 4.6 mmol/L (3.5-5.1)
[2023-06-21 06:53] LABS: Slide Review YES
[2023-06-21 07:10] LABS: ABO TYPING A; Antibody Screen NEGATIVE (NEGATIVE); RH TYPING POSITIVE
[2023-06-21] MEDS: HUMALOG SQ SCH ×3 (08:07→17:30)
[2023-06-21] MEDS ORDERED: Lactated Ringers 1,000 ML IV SCH (08:30)
[2023-06-21] MEDS ORDERED: CEFAZOLIN 2 GM-D5W BAG** 2 GM/50 ML ML IV SCH (09:00)
[2023-06-21] MEDS ORDERED: Xylocaine 1% Vial 30 ML PF IJ ONE (09:06)
[2023-06-21] MEDS ORDERED: Marcaine Mpf 0.5% Vial 30 Ml ONE (09:06)
[2023-06-21] MEDS ORDERED: DIPRIVAN 200 MG/20 ML IV ONE ×2 (09:40→10:07)
[2023-06-21] MEDS ORDERED: SUBLIMAZE 100 MCG/2 ML ONE ×2 (09:40→11:00)
[2023-06-21] MEDS ORDERED: Versed 2 MG/2 ML Injection ONE (09:40)
[2023-06-21] MEDS ORDERED: VITAMIN D PO SCH (10:00)
--- NOTE | 2023-06-21 10:50 | XRAY ---
Indication: Right leg bone debridement. Intraoperative fluoroscopy provided for 1 second. 2 digital spot images submitted for interpretation demonstrates instrument tip projecting mid lower leg. Correlate with intraoperative findings/report.
--- NOTE | 2023-06-21 11:27 | PCM.NOTE ---
Date and Time: 06/21/23 1122 Subjective Assessment: 06/18/23 is a 62 year old male with Pmhx of HTN, type II DM, hepatitis C ( treated) , cirrhosis, CKD stage 3. He was seen in podiatry clinic today and then referred for IP admission due to the severity of his wounds. Currently BL legs are wrapped. was able to show wound to provider on her phone. Podiatry plans to take pt to surgery today for debridement. He has mild c/o pain. He denies CP, SOB, abd. pain, N/V/D. 06/19/23 Pt resting in bed. He explains he is feeling better. Pain is well controlled. BLLE are wrapped. Debridement with podiatry yesterday. PICC line placed. plan is for pt to stay until Saturday for IP antibiotics. He is to keep legs elevated and apply ice packs PRN. Antibiotics ordered per podiatry recs. He denies any further concerns at this time. 06/20/23 Pt resting in bed. Anesthesia came to see to see pt today and wants medical clearance for pancytopenia for tomorrow's procedure. Dr. Chandra ok with medical clearance for this. Discussed with Podiatry nurse about d/c of vancomycin due to kidney function. Dr. Donald changed antibiotics to Cefepime and d/c'd Zosyn as well. Pt denies any further concerns at this time. 06/21/23 Pt resting in bed. Discussed with pt and he will need to f/u Op with hematology for pancytopenia. He has seen Dr. Douglass in the past in [place]. would like to make appointment after they leave as she does not have her calender with her. He will also need to f/u as scheduled with nephrology. He is scheduled for a skin graft today with podiatry. After this is completed he will be be able to d/c with podiatry recs for antibiotics. Pt has a PICC line in place for OP antibiotics. He is ready to go home. He denies any concerns and pain is well controlled. - Review of Systems Constitutional: No Fever, No Chills Eyes: No Symptoms Ears, Nose, & Throat: No Symptoms Respiratory: No Cough, No Short Of Breath Cardiac: No Chest Pain, No Edema, No Syncope Abdominal/Gastrointestinal: No Abdominal Pain, No Nausea, No Vomiting, No Diarrhea Genitourinary Symptoms: No Dysuria Musculoskeletal: No Back Pain, No Neck Pain Skin: Other (BLLE wrapped), No Rash Neurological: No Dizziness, No Focal Weakness, No Sensory Changes Psychological: No Symptoms Endocrine: No Symptoms Hematologic/Lymphatic: No Symptoms Immunological/Allergic: No Symptoms Objective Exam General Appearance: no apparent distress, alert Neurologic Exam: alert, oriented x 3, cooperative, normal mood/affect, nml cereb ellar function, sensation nml, No motor deficits Skin Exam: normal color, warm, dry Wound Assessment: Skin/Wound Assessment Wound/Incision Assessment Start: 06/19/23 08:55 Text: Status: Active Freq: Q6H Protocol: Document 06/21/23 08:06 [facility] (Rec: 06/21/23 08:06 [facility] [id number]) Wound/Incision Assessment Lower Other Wound Assessment Shift Assessment Wound Type Ulcerations Wound Stage Non Pressure Wound Dressing Status Dry & Intact Comment Dressings per Dr Donald; dressings clean, dry, and intact Wound Photo Photo Taken No Eye Exam: PERRL, EOMI, eyes nml inspection Ears, Nose, Throat Exam: normal ENT inspection, pharynx normal, moist mucous membranes Neck Exam: normal inspection, non-tender, supple, full range of motion Respiratory Exam: normal breath sounds, lungs clear, No respiratory distress Cardiovascular Exam: regular rate/rhythm, normal heart sounds Gastrointestinal/Abdomen Exam: soft, No tenderness, No mass Extremity Exam: normal inspection, normal range of motion, other (BLLE wrapped) Back Exam: normal inspection, normal range of motion, No CVA tenderness, No vertebral tenderness Male Genitalia Exam: deferred Rectal Exam: deferred OBJECTIVE DATA Vital Signs: Vital Signs - 24 hr Temp Pulse Resp BP Pulse Ox 06/21/23 09:38 97.5 F 81 19 129/70 98 06/21/23 07:49 97.5 F 81 19 129/70 98 06/21/23 04:00 97.7 F 78 18 118/63 98 06/20/23 23:30 97.7 F 79 18 108/55 100 06/20/23 20:00 98.0 F 78 18 108/59 100 06/20/23 16:00 97.7 F 77 16 121/60 97 06/20/23 11:45 97.7 F 73 18 107/60 95 Pain Assessment - Last Documented Pain Intensity 5 Pain Scale Used 0-10 Pain Scale Intake and Output: Intake & Output 06/18/23 06/19/23 06/20/23 06/21/23 11:59 11:59 11:59 11:59 Intake Total 640 900 460 Output Total 950 1175 1500 Balance -850 -346 -0414 Weight 98.066 kg 98.066 kg 98.066 kg Lab Results: Lab Results-Last 24 Hours 06/19/23 06/20/23 06/20/23 Range/Units 15:30 11:04 11:04 WBC (4.0-10.5) x10^3/uL RBC (4.1-5.6) x10^6/uL Hgb (12.5-18.0) g/dL Hct 27.5 L (37.5-51.0) % MCV (78-100) fL MCH (26-32) pg MCHC (32-36) g/dL RDW (11.5-14.0) % Plt Count (150-450) x10^3/uL MPV (7.5-11.0) fL PT (9.4-12.5) SECONDS INR (0.8-3.0) APTT 37.7 H (25.1-36.5) SECONDS Sodium (137-145) mmol/L Potassium (3.5-5.1) mmol/L Chloride (98-107) mmol/L Carbon Dioxide (22-30) mmol/L Anion Gap (5-15) MEQ/L BUN (9-20) mg/dL Creatinine (0.66-1.25) mg/dL Estimated GFR ML/MIN Glucose (74-106) mg/dL POC Glucometer (74 to 106) mg/dL Calcium (8.4-10.2) mg/dL Total Bilirubin (0.2-1.3) mg/dL Direct Bilirubin (0.0-0.4) mg/dL AST (17-59) U/L ALT (0-50) U/L Alkaline Phosphatase (38-126) U/L NT-Pro-B Natriuret Pep (<300) pg/mL Serum Total Protein (6.3-8.2) g/dL Albumin (3.5-5.0) g/dL 25-OH Vitamin D Total 26.4 L (30-100) ng/mL RBC Folate Hemolysate 420.0 (Not Estab.) ng/mL RBC Folate 1527 (>498) ng/mL Slides for Path Review ABO Group Rh Factor Antibody Screen (NEGATIVE) 06/20/23 06/20/23 06/20/23 Range/Units 11:31 14:08 21:39 WBC (4.0-10.5) x10^3/uL RBC (4.1-5.6) x10^6/uL Hgb (12.5-18.0) g/dL Hct (37.5-51.0) % MCV (78-100) fL MCH (26-32) pg MCHC (32-36) g/dL RDW (11.5-14.0) % Plt Count (150-450) x10^3/uL MPV (7.5-11.0) fL PT (9.4-12.5) SECONDS INR (0.8-3.0) APTT (25.1-36.5) SECONDS Sodium (137-145) mmol/L Potassium (3.5-5.1) mmol/L Chloride (98-107) mmol/L Carbon Dioxide (22-30) mmol/L Anion Gap (5-15) MEQ/L BUN (9-20) mg/dL Creatinine (0.66-1.25) mg/dL Estimated GFR ML/MIN Glucose (74-106) mg/dL POC Glucometer 143 H 138 H 48 L* (74 to 106) mg/dL Calcium (8.4-10.2) mg/dL Total Bilirubin (0.2-1.3) mg/dL Direct Bilirubin (0.0-0.4) mg/dL AST (17-59) U/L ALT (0-50) U/L Alkaline Phosphatase (38-126) U/L NT-Pro-B Natriuret Pep (<300) pg/mL Serum Total Protein (6.3-8.2) g/dL Albumin (3.5-5.0) g/dL 25-OH Vitamin D Total (30-100) ng/mL RBC Folate Hemolysate (Not Estab.) ng/mL RBC Folate (>498) ng/mL Slides for Path Review ABO Group Rh Factor Antibody Screen (NEGATIVE) 06/20/23 06/21/23 06/21/23 Range/Units 22:14 04:57 04:57 WBC 3.2 L (4.0-10.5) x10^3/uL RBC 2.64 L (4.1-5.6) x10^6/uL Hgb 8.0 L (12.5-18.0) g/dL Hct 24.9 L (37.5-51.0) % MCV 94.3 (78-100) fL MCH 30.3 (26-32) pg MCHC 32.1 (32-36) g/dL RDW 14.1 H (11.5-14.0) % Plt Count 69 L (150-450) x10^3/uL MPV 10.5 (7.5-11.0) fL PT (9.4-12.5) SECONDS INR (0.8-3.0) APTT (25.1-36.5) SECONDS Sodium 136 L (137-145) mmol/L Potassium 4.6 (3.5-5.1) mmol/L Chloride 111 H (98-107) mmol/L Carbon Dioxide 17 L (22-30) mmol/L Anion Gap 12.4 (5-15) MEQ/L BUN 31 H (9-20) mg/dL Creatinine 2.50 H (0.66-1.25) mg/dL Estimated GFR 27.9 ML/MIN Glucose 206 H (74-106) mg/dL POC Glucometer 72 L (74 to 106) mg/dL Calcium 7.8 L (8.4-10.2) mg/dL Total Bilirubin 0.60 (0.2-1.3) mg/dL Direct Bilirubin 0.2 (0.0-0.4) mg/dL AST 44 (17-59) U/L ALT 23 (0-50) U/L Alkaline Phosphatase 212 H (38-126) U/L NT-Pro-B Natriuret Pep (<300) pg/mL Serum Total Protein 6.0 L (6.3-8.2) g/dL Albumin 2.2 L (3.5-5.0) g/dL 25-OH Vitamin D Total (30-100) ng/mL RBC Folate Hemolysate (Not Estab.) ng/mL RBC Folate (>498) ng/mL Slides for Path Review YES ABO Group Rh Factor Antibody Screen (NEGATIVE) 06/21/23 06/21/23 06/21/23 Range/Units 04:57 04:57 04:57 WBC (4.0-10.5) x10^3/uL RBC (4.1-5.6) x10^6/uL Hgb (12.5-18.0) g/dL Hct (37.5-51.0) % MCV (78-100) fL MCH (26-32) pg MCHC (32-36) g/dL RDW (11.5-14.0) % Plt Count (150-450) x10^3/uL MPV (7.5-11.0) fL PT 12.3 (9.4-12.5) SECONDS INR 1.14 (0.8-3.0) APTT (25.1-36.5) SECONDS Sodium (137-145) mmol/L Potassium (3.5-5.1) mmol/L Chloride (98-107) mmol/L Carbon Dioxide (22-30) mmol/L Anion Gap (5-15) MEQ/L BUN (9-20) mg/dL Creatinine (0.66-1.25) mg/dL Estimated GFR ML/MIN Glucose (74-106) mg/dL POC Glucometer (74 to 106) mg/dL Calcium (8.4-10.2) mg/dL Total Bilirubin (0.2-1.3) mg/dL Direct Bilirubin (0.0-0.4) mg/dL AST (17-59) U/L ALT (0-50) U/L Alkaline Phosphatase (38-126) U/L NT-Pro-B Natriuret Pep 343 (<300) pg/mL Serum Total Protein (6.3-8.2) g/dL Albumin (3.5-5.0) g/dL 25-OH Vitamin D Total (30-100) ng/mL RBC Folate Hemolysate (Not Estab.) ng/mL RBC Folate (>498) ng/mL Slides for Path Review ABO Group A Rh Factor POSITIVE Antibody Screen NEGATIVE (NEGATIVE) 06/21/23 Range/Units 07:44 WBC (4.0-10.5) x10^3/uL RBC (4.1-5.6) x10^6/uL Hgb (12.5-18.0) g/dL Hct (37.5-51.0) % MCV (78-100) fL MCH (26-32) pg MCHC (32-36) g/dL RDW (11.5-14.0) % Plt Count (150-450) x10^3/uL MPV (7.5-11.0) fL PT (9.4-12.5) SECONDS INR (0.8-3.0) APTT (25.1-36.5) SECONDS Sodium (137-145) mmol/L Potassium (3.5-5.1) mmol/L Chloride (98-107) mmol/L Carbon Dioxide (22-30) mmol/L Anion Gap (5-15) MEQ/L BUN (9-20) mg/dL Creatinine (0.66-1.25) mg/dL Estimated GFR ML/MIN Glucose (74-106) mg/dL POC Glucometer 199 H (74 to 106) mg/dL Calcium (8.4-10.2) mg/dL Total Bilirubin (0.2-1.3) mg/dL Direct Bilirubin (0.0-0.4) mg/dL AST (17-59) U/L ALT (0-50) U/L Alkaline Phosphatase (38-126) U/L NT-Pro-B Natriuret Pep (<300) pg/mL Serum Total Protein (6.3-8.2) g/dL Albumin (3.5-5.0) g/dL 25-OH Vitamin D Total (30-100) ng/mL RBC Folate Hemolysate (Not Estab.) ng/mL RBC Folate (>498) ng/mL Slides for Path Review ABO Group Rh Factor Antibody Screen (NEGATIVE) Radiology Exams: Radiology Procedures Category Date Time Status FLUOROSCOPY UP TO 1 HR Routine Exams 06/21/23 09:55 Taken GUIDE FOR VASCULAR ACCESS [US] Routine Exams 06/19/23 12:23 Completed LOWER LEG Routine Exams 06/21/23 09:55 Completed PICC LINE PLACEMENT Routine Exams 06/19/23 13:00 Completed Multi-Disciplinary Progress Notes: Multi-Disciplinary Progress Notes 06/20/23 14:22 Physical Therapy Note by Tila(Tracy#[id number])Miguelina PT. WAS SEEN BY P.T .THIS A.M. REPORTS R LL PN AT 2/10 W/ PN MEDS. POST-OP DRESSINGS INTACT. PT. IN BED UPON P.T. ARRIVAL TO ROOM AND AGREEABLE TO P.T. PERFORMED SUPINE TO SIT MOD I W/ HOB ELEVATED. SIT TO STAND PERFORMED W/ CGA- SBA. AMBULATED 50' W/ RW AND PWB R LE AND FWB L LE. PT. REQUIRED V.C. FOR SEQUENCING LEADING W/ R LE AND TO IMPROVE ERECT TRUNK POSTURE. PT. ABLE TO STEP UP AND DOWN ON 6" STEP W/ CGA - W/ CUES TO LEAD W/ L UE FOR ASCENT AND R LE FOR DESCENT. PT. PROVIDED W/ HANDOUT FOR PROPER STEP NEGOTIATION WELL. PT. TO RETURN TO S TOMORROW FOR SKIN GRAFTING AND D/C HOME W/ HHC WHEN STABLE. WILL CONT. P.T. TO ADDRESS GAIT AND TRANSFER INDEPENDENCE UNTIL D/C. Initialized on 06/20/23 14:22 - END OF NOTE 06/20/23 13:37 Case Management Note by Aranza Bailey IV INFUSION ORDERS FAXED TO [facility] ALONG WITH INFO ON PICC LINE PICC LINE AND INFUSION ORDERS ALSO FAXED TO [facility] Initialized on 06/20/23 13:37 - END OF NOTE Assessment/Plan (1) Ulcer of extremity due to chronic venous insufficiency Current Visit: No Status: Acute Code(s): L98.499 - NON-PRESSURE CHRONIC ULCER OF SKIN OF SITES W UNSP SEVERITY; I87.2 - VENOUS INSUFFICIENCY (CHRONIC) (PERIPHERAL) (2) DM2 (diabetes mellitus, type 2) Current Visit: No Status: Chronic (3) Oxygen decrease Current Visit: Yes Status: Acute Code(s): R09.02 - HYPOXEMIA (4) Acute on chronic renal failure Current Visit: Yes Status: Acute Code(s): N17.9 - ACUTE KIDNEY FAILURE, UNSPECIFIED; N18.9 - CHRONIC KIDNEY DISEASE, UNSPECIFIED (5) Anemia Current Visit: Yes Status: Acute Code(s): D64.9 - ANEMIA, UNSPECIFIED (6) Vitamin D deficiency Current Visit: Yes Status: Acute Assessment & Plan: (1) Ulcer of extremity due to chronic venous insufficiency Current Visit: No Status: Acute Code(s): L98.499 - NON-PRESSURE CHRONIC ULCER OF SKIN OF SITES W UNSP SEVERITY; I87.2 - VENOUS INSUFFICIENCY (CHRONIC) (PERIPHERAL) (2) DM2 (diabetes mellitus, type 2) Current Visit: No Status: Chronic (3) Oxygen decrease Current Visit: Yes Status: Acute Code(s): R09.02 - HYPOXEMIA (4) Acute on chronic renal failure Current Visit: Yes Status: Acute Code(s): N17.9 - ACUTE KIDNEY FAILURE, UNSPECIFIED; N18.9 - CHRONIC KIDNEY DISEASE, UNSPECIFIED (5) Anemia Current Visit: Yes Status: Acute Assessment & Plan: (1) Ulcer of extremity due to chronic venous insufficiency Current Visit: No Status: Acute Assessment & Plan: - XR RLE 06/17 2 view right lower leg demonstrates diffuse tiny subcutaneous soft tissue calcifications favoring dermatomyositis. Incidental age-related osteopenia. No other bony, articular, or soft tissue abnormalities. - Podiatry to take to surgery today for debridement - Start antibiotics per podiatry orders that were written, vancomycin and zosyn - wound culture from 06/17 - gram negative- sensitivity pending - pain control - PICC line placement for OP antibiotics - Consider MRI - ESR 65 - PT/OT 06/20 - Antibiotics changed to cefepime 06/21 - scheduled for skin graft today - f/u with podiatry Code(s): L98.499 - NON-PRESSURE CHRONIC ULCER OF SKIN OF SITES W UNSP SEVERITY; I87.2 - VENOUS INSUFFICIENCY (CHRONIC) (PERIPHERAL) (2) DM2 (diabetes mellitus, type 2) Current Visit: No Status: Chronic Assessment & Plan: - Continue home dose of insulin - Hold oral medication - humalog S/S added - A1C 7.73 - uncontrolled 06/19 - nurse explained pt tells staff how much insulin to give not what is ordered. 06/20 - Pt compliant with insulin (3) Oxygen decrease Current Visit: Yes Status: Acute Assessment & Plan: 06/18 - O2 90% on RA - Keep oxygen > 92% - PRN Oxygen 06/19 - resolved - RA 100% today Code(s): R09.02 - HYPOXEMIA (4) Acute on chronic renal failure Current Visit: Yes Status: Acute Assessment & Plan: - Follows with Dr. Boswell - Creat 2.19, baseline 1.99 - monitor 06/21 - gentle hydration started Code(s): N17.9 - ACUTE KIDNEY FAILURE, UNSPECIFIED; N18.9 - CHRONIC KIDNEY DISEASE, UNSPECIFIED (5) Anemia Current Visit: Yes Status: Acute Assessment & Plan: 06/19 - Iron panel - Hgb 8.9 monitor - 2nd to CKD 06/20 - Medical clearance for pancytopenia - Hgb stable at 7.9 06/21 - hgb 8.0 - F/u Op with Dr. Douglass 6. Vitamin D def. - Vitamin d started Code(s): E55.9 - VITAMIN D DEFICIENCY, UNSPECIFIED
--- NOTE | 2023-06-21 11:38 | PCM.DS ---
Discharge Summary Date of Admission: 06/18/23 11:09 Date of Discharge: 06/21/23 Admitting Physician: FELECIA DEL ANGEL MD Consults: Consults on Case 06/18/23 13:03 Consult Surgery ROUTINE Primary Care Provider: IAN CHRISTENSEN Allergies Allergies No Known Drug Allergies Allergy (Verified 01/09/23 18:54) Hospital Summary - Hospital Course Hospital Course: 06/18/23 is a 62 year old male with Pmhx of HTN, type II DM, hepatitis C ( treated) , cirrhosis, CKD stage 3. He was seen in podiatry clinic today and then referred for IP admission due to the severity of his wounds. Currently BL legs are wrapped. was able to show wound to provider on her phone. Podiatry plans to take pt to surgery today for debridement. He has mild c/o pain. He denies CP, SOB, abd. pain, N/V/D. 06/19/23 Pt resting in bed. He explains he is feeling better. Pain is well controlled. BLLE are wrapped. Debridement with podiatry yesterday. PICC line placed. plan is for pt to stay until Saturday for IP antibiotics. He is to keep legs elevated and apply ice packs PRN. Antibiotics ordered per podiatry recs. He denies any further concerns at this time. 06/20/23 Pt resting in bed. Anesthesia came to see to see pt today and wants medical clearance for pancytopenia for tomorrow's procedure. Dr. Del Angel ok with medical clearance for this. Discussed with Podiatry nurse about d/c of vancomycin due to kidney function. Dr. Chaves changed antibiotics to Cefepime and d/c'd Zosyn as well. Pt denies any further concerns at this time. 06/21/23 Pt resting in bed. Discussed with pt and he will need to f/u Op with hematology for pancytopenia. He has seen Dr. Douglass in the past in [place]. would like to make appointment after they leave as she does not have her calender with her. He will also need to f/u as scheduled with nephrology. He is scheduled for a skin graft today with podiatry. After this is completed he will be be able to d/c with podiatry recs for antibiotics. Pt has a PICC line in place for OP antibiotics. He is ready to go home. He denies any concerns and pain is well controlled. - Vitals & Intake/Output Vital Signs: Vital Signs Temperature 97.5 F 06/21/23 09:38 Pulse Rate 81 06/21/23 09:38 Respiratory Rate 19 06/21/23 09:38 Blood Pressure 129/70 06/21/23 09:38 O2 Sat by Pulse Oximetry 98 06/21/23 09:38 Intake & Output: Intake & Output 06/18/23 06/19/23 06/20/23 06/21/23 11:59 11:59 11:59 11:59 Intake Total 640 900 460 Output Total 950 1175 1500 Balance -484 -096 -3401 Weight 98.066 kg 98.066 kg 98.066 kg - Lab Result Diagrams: 06/21/23 04:57 06/21/23 04:57 Lab Results-Last 24 Hrs: Lab Results-Last 24 Hours 06/19/23 06/20/23 06/20/23 Range/Units 15:30 11:04 11:31 WBC (4.0-10.5) x10^3/uL RBC (4.1-5.6) x10^6/uL Hgb (12.5-18.0) g/dL Hct 27.5 L (37.5-51.0) % MCV (78-100) fL MCH (26-32) pg MCHC (32-36) g/dL RDW (11.5-14.0) % Plt Count (150-450) x10^3/uL MPV (7.5-11.0) fL PT (9.4-12.5) SECONDS INR (0.8-3.0) Sodium (137-145) mmol/L Potassium (3.5-5.1) mmol/L Chloride (98-107) mmol/L Carbon Dioxide (22-30) mmol/L Anion Gap (5-15) MEQ/L BUN (9-20) mg/dL Creatinine (0.66-1.25) mg/dL Estimated GFR ML/MIN Glucose (74-106) mg/dL POC Glucometer 143 H (74 to 106) mg/dL Calcium (8.4-10.2) mg/dL Total Bilirubin (0.2-1.3) mg/dL Direct Bilirubin (0.0-0.4) mg/dL AST (17-59) U/L ALT (0-50) U/L Alkaline Phosphatase (38-126) U/L NT-Pro-B Natriuret Pep (<300) pg/mL Serum Total Protein (6.3-8.2) g/dL Albumin (3.5-5.0) g/dL 25-OH Vitamin D Total 26.4 L (30-100) ng/mL RBC Folate Hemolysate 420.0 (Not Estab.) ng/mL RBC Folate 1527 (>498) ng/mL Slides for Path Review ABO Group Rh Factor Antibody Screen (NEGATIVE) 06/20/23 06/20/23 06/20/23 Range/Units 14:08 21:39 22:14 WBC (4.0-10.5) x10^3/uL RBC (4.1-5.6) x10^6/uL Hgb (12.5-18.0) g/dL Hct (37.5-51.0) % MCV (78-100) fL MCH (26-32) pg MCHC (32-36) g/dL RDW (11.5-14.0) % Plt Count (150-450) x10^3/uL MPV (7.5-11.0) fL PT (9.4-12.5) SECONDS INR (0.8-3.0) Sodium (137-145) mmol/L Potassium (3.5-5.1) mmol/L Chloride (98-107) mmol/L Carbon Dioxide (22-30) mmol/L Anion Gap (5-15) MEQ/L BUN (9-20) mg/dL Creatinine (0.66-1.25) mg/dL Estimated GFR ML/MIN Glucose (74-106) mg/dL POC Glucometer 138 H 48 L* 72 L (74 to 106) mg/dL Calcium (8.4-10.2) mg/dL Total Bilirubin (0.2-1.3) mg/dL Direct Bilirubin (0.0-0.4) mg/dL AST (17-59) U/L ALT (0-50) U/L Alkaline Phosphatase (38-126) U/L NT-Pro-B Natriuret Pep (<300) pg/mL Serum Total Protein (6.3-8.2) g/dL Albumin (3.5-5.0) g/dL 25-OH Vitamin D Total (30-100) ng/mL RBC Folate Hemolysate (Not Estab.) ng/mL RBC Folate (>498) ng/mL Slides for Path Review ABO Group Rh Factor Antibody Screen (NEGATIVE) 06/21/23 06/21/23 06/21/23 Range/Units 04:57 04:57 04:57 WBC 3.2 L (4.0-10.5) x10^3/uL RBC 2.64 L (4.1-5.6) x10^6/uL Hgb 8.0 L (12.5-18.0) g/dL Hct 24.9 L (37.5-51.0) % MCV 94.3 (78-100) fL MCH 30.3 (26-32) pg MCHC 32.1 (32-36) g/dL RDW 14.1 H (11.5-14.0) % Plt Count 69 L (150-450) x10^3/uL MPV 10.5 (7.5-11.0) fL PT 12.3 (9.4-12.5) SECONDS INR 1.14 (0.8-3.0) Sodium 136 L (137-145) mmol/L Potassium 4.6 (3.5-5.1) mmol/L Chloride 111 H (98-107) mmol/L Carbon Dioxide 17 L (22-30) mmol/L Anion Gap 12.4 (5-15) MEQ/L BUN 31 H (9-20) mg/dL Creatinine 2.50 H (0.66-1.25) mg/dL Estimated GFR 27.9 ML/MIN Glucose 206 H (74-106) mg/dL POC Glucometer (74 to 106) mg/dL Calcium 7.8 L (8.4-10.2) mg/dL Total Bilirubin 0.60 (0.2-1.3) mg/dL Direct Bilirubin 0.2 (0.0-0.4) mg/dL AST 44 (17-59) U/L ALT 23 (0-50) U/L Alkaline Phosphatase 212 H (38-126) U/L NT-Pro-B Natriuret Pep (<300) pg/mL Serum Total Protein 6.0 L (6.3-8.2) g/dL Albumin 2.2 L (3.5-5.0) g/dL 25-OH Vitamin D Total (30-100) ng/mL RBC Folate Hemolysate (Not Estab.) ng/mL RBC Folate (>498) ng/mL Slides for Path Review YES ABO Group Rh Factor Antibody Screen (NEGATIVE) 06/21/23 06/21/23 06/21/23 Range/Units 04:57 04:57 07:44 WBC (4.0-10.5) x10^3/uL RBC (4.1-5.6) x10^6/uL Hgb (12.5-18.0) g/dL Hct (37.5-51.0) % MCV (78-100) fL MCH (26-32) pg MCHC (32-36) g/dL RDW (11.5-14.0) % Plt Count (150-450) x10^3/uL MPV (7.5-11.0) fL PT (9.4-12.5) SECONDS INR (0.8-3.0) Sodium (137-145) mmol/L Potassium (3.5-5.1) mmol/L Chloride (98-107) mmol/L Carbon Dioxide (22-30) mmol/L Anion Gap (5-15) MEQ/L BUN (9-20) mg/dL Creatinine (0.66-1.25) mg/dL Estimated GFR ML/MIN Glucose (74-106) mg/dL POC Glucometer 199 H (74 to 106) mg/dL Calcium (8.4-10.2) mg/dL Total Bilirubin (0.2-1.3) mg/dL Direct Bilirubin (0.0-0.4) mg/dL AST (17-59) U/L ALT (0-50) U/L Alkaline Phosphatase (38-126) U/L NT-Pro-B Natriuret Pep 343 (<300) pg/mL Serum Total Protein (6.3-8.2) g/dL Albumin (3.5-5.0) g/dL 25-OH Vitamin D Total (30-100) ng/mL RBC Folate Hemolysate (Not Estab.) ng/mL RBC Folate (>498) ng/mL Slides for Path Review ABO Group A Rh Factor POSITIVE Antibody Screen NEGATIVE (NEGATIVE) 06/21/23 Range/Units 11:26 WBC (4.0-10.5) x10^3/uL RBC (4.1-5.6) x10^6/uL Hgb (12.5-18.0) g/dL Hct (37.5-51.0) % MCV (78-100) fL MCH (26-32) pg MCHC (32-36) g/dL RDW (11.5-14.0) % Plt Count (150-450) x10^3/uL MPV (7.5-11.0) fL PT (9.4-12.5) SECONDS INR (0.8-3.0) Sodium (137-145) mmol/L Potassium (3.5-5.1) mmol/L Chloride (98-107) mmol/L Carbon Dioxide (22-30) mmol/L Anion Gap (5-15) MEQ/L BUN (9-20) mg/dL Creatinine (0.66-1.25) mg/dL Estimated GFR ML/MIN Glucose (74-106) mg/dL POC Glucometer 152 H (74 to 106) mg/dL Calcium (8.4-10.2) mg/dL Total Bilirubin (0.2-1.3) mg/dL Direct Bilirubin (0.0-0.4) mg/dL AST (17-59) U/L ALT (0-50) U/L Alkaline Phosphatase (38-126) U/L NT-Pro-B Natriuret Pep (<300) pg/mL Serum Total Protein (6.3-8.2) g/dL Albumin (3.5-5.0) g/dL 25-OH Vitamin D Total (30-100) ng/mL RBC Folate Hemolysate (Not Estab.) ng/mL RBC Folate (>498) ng/mL Slides for Path Review ABO Group Rh Factor Antibody Screen (NEGATIVE) Micro Results-Entire Visit: Accuchecks Date 06/21/23 Date 06/20/23 Time 07:49 Time 16:19 - Radiology Exams Ordered Rad Exams-Entire Visit: Radiology Procedures Category Date Time Status FLUOROSCOPY UP TO 1 HR Routine Exams 06/21/23 09:55 Taken GUIDE FOR VASCULAR ACCESS [US] Routine Exams 06/19/23 12:23 Completed LOWER LEG Routine Exams 06/21/23 09:55 Completed PICC LINE PLACEMENT Routine Exams 06/19/23 13:00 Completed - Procedures and Test Procedures and Tests throughout Hospitalization: Therapy Orders & Screens 06/18/23 12:55 OT Clarification Order ROUTINE Comment: Physician Instructions: Reason For Exam: 06/18/23 13:16 OT Screen per Nursing Assess ONCE Comment: Protocol Order Physician Instructions: Greater than 3 points order OT Admission Screening Reason For Exam: Triggered on Admission Diagnosis: ulcer of ble Open Wound/Cellutlitis/Pressure Ulcers: Yes Acute Fx/ORIF/Change in wt bearing status: Yes Severe MUSCULOSKELETAL pain: Yes ADL Dysfunction: No Acute CVA w/Hemiparesis/Hemiplegia: No Decreased Functional Mobility/Strength: Yes Sprain/Strain: No Acute Post-op Mobility Dysfunction: No Total Points: 16 06/18/23 14:06 PT Eval & Treat (MD Order) ONCE Reason for Eval:: GAIT TRAINING Diagnosis: ulcer of ble 06/20/23 09:22 EKG REPEAT IN AM Comment: Diagnosis: ulcer of ble Discharge Exam General Appearance: no apparent distress, alert Neurologic Exam: alert, oriented x 3, cooperative, normal mood/affect, nml cerebellar function, sensation nml, No motor deficits Eye Exam: PERRL, EOMI, eyes nml inspection Ears, Nose, Throat Exam: normal ENT inspection, pharynx normal, moist mucous m embranes Neck Exam: normal inspection, non-tender, supple, full range of motion Respiratory Exam: normal breath sounds, lungs clear, No respiratory distress Cardiovascular Exam: regular rate/rhythm, normal heart sounds Gastrointestinal/Abdomen Exam: soft, No tenderness, No mass Male Genitalia Exam: deferred Rectal Exam: deferred Back Exam: normal inspection, normal range of motion, No CVA tenderness, No vertebral tenderness Extremity Exam: normal inspection, normal range of motion, other ((BLLE wrapped)) Skin Exam: normal color, warm, dry Wound Assessment: Skin/Wound Assessment Wound/Incision Assessment Start: 06/19/23 08:55 Text: Status: Active Freq: Q6H Protocol: Document 06/21/23 08:06 VIJI (Rec: 06/21/23 08:06 VIJI [id number]) Wound/Incision Assessment Lower Other Wound Assessment Shift Assessment Wound Type Ulcerations Wound Stage Non Pressure Wound Dressing Status Dry & Intact Comment Dressings per Dr Chaves; dressings clean, dry, and intact Wound Photo Photo Taken No Final Diagnosis/Problem List - Final Discharge Diagnosis/Problem (1) Ulcer of extremity due to chronic venous insufficiency Current Visit: No Status: Acute Code(s): L98.499 - NON-PRESSURE CHRONIC ULCER OF SKIN OF SITES W UNSP SEVERITY; I87.2 - VENOUS INSUFFICIENCY (CHRONIC) (PERIPHERAL) (2) DM2 (diabetes mellitus, type 2) Current Visit: No Status: Chronic (3) Oxygen decrease Current Visit: Yes Status: Acute Code(s): R09.02 - HYPOXEMIA (4) Acute on chronic renal failure Current Visit: Yes Status: Acute Code(s): N17.9 - ACUTE KIDNEY FAILURE, UNSPECIFIED; N18.9 - CHRONIC KIDNEY DISEASE, UNSPECIFIED (5) Anemia Current Visit: Yes Status: Acute Code(s): D64.9 - ANEMIA, UNSPECIFIED (6) Vitamin D deficiency Current Visit: Yes Status: Acute Assessment & Plan: (1) Ulcer of extremity due to chronic venous insufficiency Current Visit: No Status: Acute Assessment & Plan: - XR RLE 06/17 2 view right lower leg demonstrates diffuse tiny subcutaneous soft tissue calcifications favoring dermatomyositis. Incidental age-related osteopenia. No other bony, articular, or soft tissue abnormalities. - Podiatry to take to surgery today for debridement - Start antibiotics per podiatry orders that were written, vancomycin and zosyn - wound culture from 06/17 - gram negative- sensitivity pending - pain control - PICC line placement for OP antibiotics - Consider MRI - ESR 65 - PT/OT 06/20 - Antibiotics changed to cefepime 06/21 - scheduled for skin graft today - f/u with podiatry Code(s): L98.499 - NON-PRESSURE CHRONIC ULCER OF SKIN OF SITES W UNSP SEVERITY; I87.2 - VENOUS INSUFFICIENCY (CHRONIC) (PERIPHERAL) (2) DM2 (diabetes mellitus, type 2) Current Visit: No Status: Chronic Assessment & Plan: - Continue home dose of insulin - Hold oral medication - humalog S/S added - A1C 7.73 - uncontrolled 06/19 - nurse explained pt tells staff how much insulin to give not what is ordered. 06/20 - Pt compliant with insulin (3) Oxygen decrease Current Visit: Yes Status: Acute Assessment & Plan: 06/18 - O2 90% on RA - Keep oxygen > 92% - PRN Oxygen 06/19 - resolved - RA 100% today Code(s): R09.02 - HYPOXEMIA (4) Acute on chronic renal failure Current Visit: Yes Status: Acute Assessment & Plan: - Follows with Dr. Boswell - Creat 2.19, baseline 1.99 - monitor 06/21 - gentle hydration started Code(s): N17.9 - ACUTE KIDNEY FAILURE, UNSPECIFIED; N18.9 - CHRONIC KIDNEY DISEASE, UNSPECIFIED (5) Anemia Current Visit: Yes Status: Acute Assessment & Plan: 06/19 - Iron panel - Hgb 8.9 monitor - 2nd to CKD 06/20 - Medical clearance for pancytopenia - Hgb stable at 7.9 06/21 - hgb 8.0 - F/u Op with Dr. Douglass 6. Vitamin D def. - Vitamin d started Code(s): E55.9 - VITAMIN D DEFICIENCY, UNSPECIFIED - Discharge Discharge Date: 06/21/23 Disposition: Home, Self-Care Condition: Good Prescriptions: New Cefepime HCl 1 gm [Maxipime 1 gm] 1 g IV BID #42 Ergocalciferol (Vitamin D2) [Vitamin D2] 50,000 unit PO Q7D 8 Days #10 Continue Insulin Glargine,Hum.rec.anlog [Basaglar Kwikpen U-100] 18 unit SQ BID Insulin Lispro [Humalog] 15 unit SQ TIDAC Semaglutide [Rybelsus] 7 mg PO DAILY Additional Instructions: KEEP DRESSING CLEAN, DRY AND INTACT UNTIL YOU FOLLOW UP WITH DR. CHAVES YOU MAY PARTIAL WEIGHT BEAR ON LEFT FOOT WITH AN ATHLETIC SHOE ON (LIMITED THO) DR. CHAVES'S OFFICE WILL SEND IN A PRESCRIPTION FOR PAIN MEDICATION [facility] WILL MANAGE YOUR HOME CARE WITH YOUR INFUSIONS- THEY WILL CONTACT YOU TO ARRANGE A TIME TO COME SEE YOU. THEIR PHONE NUMBER IS [phone] IF NEED ANYTHING BEFORE THEY COME Follow up with: ANDIE ROSE DPM [ACTIVE STAFF] - 06/27/23 8:00 am IAN CHRISTENSEN [Primary Care Provider] - Call for Appointment LEÓN BOSWELL [CONSULTING PHYSICIAN] - Call for Appointment (IMPORTANT) IAN LÓPEZ MD [COURTESY STAFF] - Call for Appointment (IMPORTANT)
[2023-06-21] MEDS: Lantus Insulin SQ SCH ×2 (11:54→17:30)
--- NOTE | 2023-06-21 12:26 | XRAY ---
One second of fluoroscopy was used in surgery for a right leg bone debridement.
[2023-06-21] MEDS: HYDROCODONE-ACETAMIN 10-325 MG PO PRN ×2 (12:28→17:34)
[2023-06-21 13:59] VITALS: RESP 18
[2023-06-21] MEDS: MAXIPIME 1 GM** 1 G in Dextrose 5%/Water IV Soln. 100ML PLUS BAG 100 ML IV SCH (14:00)
[2023-06-21 14:06] VITALS: TEMP 97.5
[2023-06-21 14:10] VITALS: O2SAT 98
[2023-06-21] MEDS ORDERED: TROUGH DRUG LEVELS IJ ONE (14:30)
[2023-06-21 16:30] VITALS: BP 105/53; PULSE 84
--- NOTE | 2023-06-21 16:38 | OP ---
SURGERY DATE: 06/21/2023 SURGERY TIME: PREOPERATIVE DIAGNOSIS: 1. 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 2. DIABETIC FOOT ULCER. 3. VENOUS INSUFFICIENCY ULCER. 4. FOREFOOT NEUROPATHY. 5. RIGHT LEG PAIN. 6. LEFT LEG PAIN. POSTOPERATIVE DIAGNOSIS: 1. 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 2. DIABETIC FOOT ULCER. 3. VENOUS INSUFFICIENCY ULCER. 4. FOREFOOT NEUROPATHY. 5. RIGHT LEG PAIN. 6. LEFT LEG PAIN. PROCEDURE: 1. Incision and drainage with bone debridement to the level of the right tibia. 2. Bilateral soft tissue debridement to the level of subcutaneous with respective preoperative measurements to the left 2.6 X 2.6, to the proximal tibial olvera wound 2.3 X 2.0 to the lateral tibial olvera wound left, to the right 3.8 X 2.2 to the distal lateral, and the wound that was debrided with the exposed bone 6.3 X 6.8, and application of synthetic skin substitute/Integra bilayer 4 X 5. SURGEON: Odilon Cruz D.P.M. PHARMACY DELIVERY DRIVER: None. ANESTHESIA: MAC with an intraoperative block consisting of 10 cc of a 1:1 mixture of 1% Lidocaine plain and 0.5% Bupivicaine plain. HEMOSTASIS: A pressure dressing. ESTIMATED BLOOD LOSS: Approximately 5 cc. MATERIALS: 1000 mL of Bactisure and 4 X 5 Integra graft. Surgical derek. INJECTABLES: 10 cc of a 1:1 mixture of 1% Lidocaine plain and 0.5% Bupivicaine plain injected in a B-block type fashion to the right tibial olvera wound. INDICATIONS FOR PROCEDURE: This is a second stage II procedure for debridement to multiple wounds to the bilateral lower extremity. However, most concerning is the right which is down to the level of bone. Infection was found demonstrating Pseudomonas and E. Coli for which the patient has been on IV antibiotics over the course of the last several days and has had an aggressive wash out. The patient will have an additional wash out with debridement of the bone as well as soft tissue and bone biopsies once again for clean margins. At this time, the patient understands all risks, complications, and benefits of surgical intervention including, but not limited to, infection; hematoma; seroma; possibility of delayed wound healing; non-wound healing; possible need for surgical intervention at a later date. No guarantees gave been provided as to the outcome of surgical intervention at this time. It is at this time, we decided to proceed. DESCRIPTION OF PROCEDURE: The patient was brought into the OR. Placed on the OR table in the supine position at this time. MAC was administered until the patient was sedated. At this time, the bilateral lower extremity was prepped and draped in the typical sterile fashion and lowered onto the surgical field. At this time, the wounds to the left leg were debrided utilizing a curette until healthy, bleeding, granulation tissue was identified. The curette was switched out and the right was debrided in a similar fashion to the large anterior tibial wound. Debridement was carried down to the level of the medial aspect of the tibia as well as soft tissue and bone cultures which were taken and handed off the field at this time for pathological assessment. At this time, 1000 ml of Bactisure were utilized to flush the site. Then, 3000 ml of sterile saline utilized to flush all remaining surgical sites. Following this, a 4 X 5 Integra was utilized to cover the right tibial olvera wound. This was approximated centrally with minimal tension on the edges and stapled utilizing surgical derek. Following this, the wounds were cleansed with sterile saline. A dressing consisting of Adaptic, 4 X 4, Kerlix, and Reginald was applied to the bilateral lower extremities with minimal compression. The patient was then reversed from anesthesia and returned to the PACU with vital signs stable and vascular status intact. The patient handled the anesthesia as well as the procedure without significant complication. The patient orders as indicated in the patient's discharge chart.
[2023-06-21] MEDS ORDERED: MAXIPIME 1 GM** 1 G in Dextrose 5%/Water IV Soln. 100ML PLUS BAG 100 ML IV SCH (17:00)
== END 2023-06-21 18:31 | disposition home or self-care (01) | DRG 574 ==
LOC: OBSVTOIN 11:09 → MED SURG 11:09
PROVIDERS: ADMIT Internal Medicine; ATTEND Internal Medicine
PROC: 0HRKXK4 Replacement of Right Lower Leg Skin with Nonautologous Tissue Substitute, Partial Thickness, External Approach (ICD-10-PCS; 2023-06-18)
PROC: 02HV33Z Insertion of Infusion Device into Superior Vena Cava, Percutaneous Approach (ICD-10-PCS; principal; 2023-06-19)
PROC: 0JBN0ZZ Excision of Right Lower Leg Subcutaneous Tissue and Fascia, Open Approach (ICD-10-PCS; 2023-06-21)
PROC: 0Q9G0ZZ Drainage of Right Tibia, Open Approach (ICD-10-PCS; 2023-06-21)
PROC: 0Q9N0ZZ Drainage of Right Metatarsal, Open Approach (ICD-10-PCS; 2023-06-21)
PROC: 0JBP0ZZ Excision of Left Lower Leg Subcutaneous Tissue and Fascia, Open Approach (ICD-10-PCS; 2023-06-21)
DX: L98.499 Non-pressure chronic ulcer of skin of other sites with unspecified severity (principal); D61.818 Other pancytopenia; L03.115 Cellulitis of right lower limb; M33.13 Other dermatomyositis without myopathy; N17.9 Acute kidney failure, unspecified; E11.621 Type 2 diabetes mellitus with foot ulcer; I87.2 Venous insufficiency (chronic) (peripheral); E11.22 Type 2 diabetes mellitus with diabetic chronic kidney disease; I12.9 Hypertensive chronic kidney disease with stage 1 through stage 4 chronic kidney disease, or unspecified chronic kidney disease; N18.30 Chronic kidney disease, stage 3 unspecified; E87.70 Fluid overload, unspecified; J84.10 Pulmonary fibrosis, unspecified; R09.02 Hypoxemia; D64.9 Anemia, unspecified; E55.9 Vitamin D deficiency, unspecified; Z79.899 Other long term (current) drug therapy; M79.662 Pain in left lower leg; M79.661 Pain in right lower leg
CPT/HCPCS: 29580; 36415; 36573; 73590; 76000; 76937; 77001; 80053; 82248; 82306; 82607; 82728; 82747; 82947; 83036; 83540; 83550; 83605; 83880; 85014; 85025; 85027; 85610; 85652; 85730; 86140; 86850; 86900; 86901; 87070; 87077; 87186; 93005; 99222; A6260; C1769; J0692; J1170; J1642; J1817; J2001; J2250; J2270; J2704; J3010; A9270-GY; J3370

== ENCOUNTER 2023-07-30 09:46 | Day surgery (SDC) | payer OTHER ==
[2023-07-30] MEDS ORDERED: Marcaine Mpf 0.5% Vial 30 Ml ONE (09:48)
[2023-07-30] MEDS ORDERED: Xylocaine 1% Vial 30 ML PF IJ ONE (09:48)
[2023-07-30] MEDS ORDERED: Lactated Ringers 1,000 ML IV SCH (10:00)
[2023-07-30 10:06] VITALS: RESP 18
[2023-07-30 11:01] LABS: ALBUMIN 2.7 g/dL (3.5-5.0); ANION GAP 11.4 MEQ/L (5-15); BILIRUBIN,TOTAL 1.7 mg/dL (0.2-1.3); Calcium 8.6 mg/dL (8.4-10.2); Creatinine 1 2.84 mg/dL (0.66-1.25); EST GLOMERULAR FILTRATION RATE 24.2 ML/MIN; Potassium 4.8 mmol/L (3.5-5.1)
[2023-07-30] MEDS ORDERED: Pepcid 20 MG VIAL IV ONE (11:25)
[2023-07-30] MEDS: Reglan 10 MG/2 ML IV ONE ×2 (11:27→11:28)
[2023-07-30] MEDS ORDERED: SUBLIMAZE 100 MCG/2 ML ONE (12:35)
[2023-07-30] MEDS ORDERED: DIPRIVAN 200 MG/20 ML IV ONE ×3 (12:35→13:18)
[2023-07-30] MEDS ORDERED: Xylocaine-Mpf 2% 5 Ml Vial ONE (12:36)
[2023-07-30] MEDS ORDERED: Decadron 4 MG INJ ONE (12:36)
[2023-07-30] MEDS ORDERED: Zofran 4 MG/2 ML VIAL ONE (12:36)
[2023-07-30] MEDS ORDERED: Versed 2 MG/2 ML Injection ONE (12:41)
[2023-07-30] MEDS ORDERED: PHENYLEPHRINE HCL ONE (13:01)
[2023-07-30] MEDS ORDERED: KEFZOL 1 GM ONE (13:14)
[2023-07-30] MEDS ORDERED: Ephedrine Sulfate 50 MG/ML ONE (13:16)
[2023-07-30] MEDS ORDERED: Lactated Ringers 1,000 ML IV ONE (13:19)
[2023-07-30] MEDS ORDERED: VANCOCIN INJECTION IV ONE (13:33)
[2023-07-30] MEDS ORDERED: Hydromorphone 1 mg/ml Injection ONE (14:05)
--- NOTE | 2023-07-30 14:24 | XRAY ---
Indication: Right lower leg bone debridement. Intraoperative fluoroscopy was provided for 10 seconds. 4 digital spot images submitted for interpretation demonstrates instrument tip projecting mid lower leg. Correlate with intraoperative findings/report.
--- NOTE | 2023-07-30 14:47 | XRAY ---
10 seconds of fluoroscopy was used in surgery for a right lower leg bone debridement.
[2023-07-30] MEDS ORDERED: NORCO 10-325 MG PO PRN (15:00)
[2023-07-30 15:01] VITALS: TEMP 97
[2023-07-30 15:29] VITALS: BP 127/72; PULSE 87; O2SAT 97
--- NOTE | 2023-07-30 15:45 | OP ---
SURGERY DATE/TIME: 07/30/2023 1316 PREOPERATIVE DIAGNOSES: 1) Soft tissue calcification, right lower extremity. 2) Venous insufficiency ulceration. 3) Diabetic foot ulcer. 4) Osteomyelitis. 5) Pain right leg. 6) Left leg venous insufficiency ulcer. POSTOPERATIVE DIAGNOSES: 1) Soft tissue calcification, right lower extremity. 2) Venous insufficiency ulceration. 3) Diabetic foot ulcer. 4) Osteomyelitis. 5) Pain right leg. 6) Left leg venous insufficiency ulcer. PROCEDURE: Incision and drainage to the level of bone of right ankle and Unna boot left lower extremity. SURGEON: Odilon Cruz DPM. OUTSIDE PARTS SALESMAN: None. ANESTHESIA: Monitored anesthesia care with intraoperative block consisting of 20 cc of 1:1 mixture of 1% lidocaine plain and 0.5% bupivacaine plain injected in V block-type fashion. HEMOSTASIS: Pressure dressing. ESTIMATED BLOOD LOSS: Approximately 20 cc. MATERIALS: Vancomycin powder 1 gm. INJECTABLES: 20 cc of 1:1 mixture of 1% lidocaine plain and 0.5% bupivacaine plain. INDICATION FOR SURGERY: Mika is a very pleasant 62-year-old male who is well known to my service for significant ulcerations to the bilateral lower extremities. To the left lower extremity, the patient has healed out since we have started care approximately one month ago. However at this time, he continues to have ulceration at the right lower extremity. The patient is diabetic and has venous insufficiency. However, he is sensate and debridement in the setting of clinic is difficult. The patient does have a significant amount of soft tissue calcifications within the soft tissue which is easily seen on radiographs and clinically making debridement significantly more difficult. As a result, we decided to proceed with intervention in OR setting so the patient could be under sedation while cleaning out soft tissue calcification which on previous pathology demonstrated microabscesses. From that standpoint, the patient understands all risks, complications and benefits of surgical intervention including but not limited to infection, hematoma, seroma, possibility of delayed wound healing and nonwound healing. There is a possibility we also encounter bone infection. At this time we will make decisions based on the clinical and radiographic indication. The patient understands all of this. Plenty of time was allowed for him to ask questions which were answered to his apparent satisfaction. It is at this time we decided to proceed. DESCRIPTION OF PROCEDURE AND FINDINGS: The patient is brought into the OR and placed on the OR table in the supine position. At this time monitored anesthesia care was administered until the patient was sedated. The right lower extremity was prepped and draped in the typical sterile fashion and lowered onto the surgical field. At this time a 20 cc block of 1:1 mixture of 1% lidocaine plain and 0.5% bupivacaine plain was injected in V block-type fashion to the right lower extremity. Following this, a combination of 15 blade, rongeurs and curettes were utilized to debride the soft tissue calcifications from the footprint of the wound. It was inspected and on removal of the soft tissue calcifications, some microabscesses were encountered with purulent drainage when compressing the rongeurs, this was cleansed with 1 liter of Bactisure and 3 liters of sterile saline under pulse lavage. From that standpoint, the wound was inspected. All remaining vascular calcifications and infected tissues were resected this left a footprint surrounding the tibia. However the fascial layer and the granulation tissue covered the bone in all aspects with the exception of a position of 2:00 at the granulation tissue at the medial aspect of the tibia when looking directly at the wound. From that standpoint, the bone was debrided in this specific location. However, bone did not probe and the decision was made not to proceed with a bone biopsy at this time. From that standpoint, the wound was cleansed once again. A dressing consisting of Betadine, Adaptic, 4x4, Kerlix and MAURICE as well as vancomycin powder was introduced into the wound. The patient then had the left leg wrapped in an Unna boot type fashion for venous insufficiency and likewise edema to the left lower extremity. The patient was then reversed from anesthesia and returned to the postoperative anesthesia care unit with vital signs stable and vascular status intact. The patient handled the anesthesia as well as the procedure without significant complication. Postoperative orders as indicated in the patient's discharge chart.
== END 2023-07-30 15:35 | disposition home or self-care (01) ==
LOC: SDC 09:46
PROVIDERS: ATTEND Podiatrist Foot & Ankle Surgery
DX: M61.461 Other calcification of muscle, right lower leg (principal); E11.621 Type 2 diabetes mellitus with foot ulcer; I87.2 Venous insufficiency (chronic) (peripheral); M86.9 Osteomyelitis, unspecified; M79.604 Pain in right leg
CPT/HCPCS: 36415; 73590; 76000; 80053; 82947; 93005; J0690; J1100; J1170; J2001; J2250; J2371; J2405; J2704; J3010; J3370; A9270-GY

== ENCOUNTER 2023-08-23 07:58 | Day surgery (SDC) | payer OTHER ==
[2023-08-23] MEDS ORDERED: Lactated Ringers 1,000 ML IV SCH (08:30)
[2023-08-23] MEDS ORDERED: CEFAZOLIN 2 GM-D5W BAG** 2 GM/50 ML ML IV SCH (08:30)
[2023-08-23] MEDS ORDERED: Lactated Ringers 1,000 ML IV ONE (08:34)
[2023-08-23 08:49] LABS: Mean Cell Volume 92.4 fL (78-100); Mean Corpuscular Hemoglobin 29.7 pg (26-32); Mean Corpuscular Hgb Concent. 32.1 g/dL (32-36); Mean Platelet Volume 10.2 fL (7.5-11.0); Platelet Count 88 x10^3/uL (150-450); Red Blood Count 3.03 x10^6/uL (4.1-5.6); Red Cell Distribution Width 13.6 % (11.5-14.0); White Blood Count 5.2 x10^3/uL (4.0-10.5)
[2023-08-23] MEDS ORDERED: Pepcid 20 MG VIAL IV ONE ×2 (08:50→09:05)
[2023-08-23] MEDS ORDERED: Reglan 10 MG/2 ML IV ONE (08:51)
[2023-08-23] MEDS ORDERED: Sodium Chloride 3 ML UD NEBULES IH ONE (08:55)
[2023-08-23] MEDS ORDERED: Xopenex 1.25 MG/0.5 ML UD NEBULE IH ONE (08:55)
[2023-08-23 09:00] LABS: ALBUMIN 2.6 g/dL (3.5-5.0); ANION GAP 10.3 MEQ/L (5-15); BILIRUBIN,TOTAL 1.2 mg/dL (0.2-1.3); Calcium 8.5 mg/dL (8.4-10.2); Creatinine 1 2.36 mg/dL (0.66-1.25); EST GLOMERULAR FILTRATION RATE 30.2 ML/MIN; Potassium 5.2 mmol/L (3.5-5.1); Total Protein 6.8 g/dL (6.3-8.2)
[2023-08-23 09:02] VITALS: O2SAT 99
[2023-08-23] MEDS ORDERED: CEFAZOLIN 2 GM-D5W BAG** 2 GM/50 ML ML IV ONE (09:04)
[2023-08-23] MEDS ORDERED: Reglan 10 MG/2 ML ONE (09:05)
[2023-08-23 09:08] LABS: Slide Review YES
[2023-08-23] MEDS ORDERED: Zofran 4 MG/2 ML VIAL IV STA (09:30)
[2023-08-23] MEDS ORDERED: Versed 2 MG/2 ML Injection ONE ×2 (10:28→11:14)
[2023-08-23] MEDS ORDERED: SUBLIMAZE 100 MCG/2 ML ONE ×2 (10:28→12:23)
[2023-08-23] MEDS ORDERED: Sodium Chloride 0.9% 1000 ML 1,000 ML IV SCH (10:30)
[2023-08-23] MEDS ORDERED: Marcaine Mpf 0.5% Vial 30 Ml ONE (10:30)
[2023-08-23] MEDS ORDERED: Xylocaine 1% Vial 30 ML PF IJ ONE (10:30)
--- NOTE | 2023-08-23 11:13 | XRAY ---
Indication: PICC line placement. Comparison: January 09, 2023 Portable chest demonstrates new right arm PICC line with tip projecting over SVC. Lungs now underinflated accentuating cardiopulmonary structures with minimal bibasilar subsegmental atelectasis. Upper lungs clear. Heart not enlarged with tortuous descending aorta. Bony thorax intact.
[2023-08-23] MEDS ORDERED: DIPRIVAN 200 MG/20 ML IV ONE (11:20)
[2023-08-23] MEDS ORDERED: Hydromorphone 1 mg/ml Injection ONE (12:52)
[2023-08-23] MEDS ORDERED: Maxipime 2 GM** 2 G in Sodium Chloride 100ML MINI-BAG PLUS 100 ML IV SCH (13:00)
[2023-08-23 13:50] VITALS: RESP 18
[2023-08-23 14:20] VITALS: BP 98/67; PULSE 83; TEMP 97.8
[2023-08-23] MEDS ORDERED: Sodium Chloride 0.9% 10 ML FLUSH Syringe PICC PRN (14:20)
--- NOTE | 2023-08-27 09:13 | OP ---
SURGERY DATE/TIME 08/23/2023 1128 PREOPERATIVE DIAGNOSES: 1) Right leg pain. 2) Soft tissue calcification. 3) Microabscess within soft tissue calcification. 4) Osteomyelitis. 5) Venous insufficiency ulcer. 6) Diabetes mellitus. 7) Chronic diabetic leg wound. POSTOPERATIVE DIAGNOSES: 1) Right leg pain. 2) Soft tissue calcification. 3) Microabscess within soft tissue calcification. 4) Osteomyelitis. 5) Venous insufficiency ulcer. 6) Diabetes mellitus. 7) Chronic diabetic leg wound. PROCEDURE: Incision and drainage with debridement to level of bone right leg with application of negative pressure Wound Vac therapy. SURGEON: Odilon Cruz DPM. COMPRESSOR OPERATOR: None. ANESTHESIA: Monitored anesthesia care with intraoperative local block consisting of 10 cc of 1:1 mixture consisting of 1% lidocaine plain and 0.5% bupivacaine plain injected in V block-type fashion. HEMOSTASIS: Pressure dressing. ESTIMATED BLOOD LOSS: Approximately 10 cc. MATERIALS: Medela Wound Vac. INJECTABLES: 20 cc of 1:1 mixture consisting of 1% lidocaine plain and 0.5% bupivacaine plain injected in a V block-type fashion to the proximal wound. INDICATION FOR SURGERY: Mika is a very pleasant 62-year-old male well known to my service for bilateral venous insufficiency ulceration. The patient has had an interesting case with soft tissue calcifications within the wound of bilateral lower extremity. Thus far, we have healed the wound to the left lower extremity with a combination of debridement and compression therapy. We had a harder time with the right lower extremity secondary to soft tissue calcification. At this time pathology has been sent both encounters previous to this one demonstrating that there are microabscesses being captured within the calcifications within his soft tissue which is difficult to debride out without creating a much larger wound. In the previous two interventions, undermining of the wound was necessary in order to clear the margins of the calcifications and the wound does look significantly better. The patient is sensate and for that reason he does not tolerate debridement to the right lower extremity in office. From that standpoint, we decided to proceed once again with a debridement to the level of bone and as well as removing any of the soft tissue calcifications which harbor these microabscesses within his leg and delayed wound healing process. Today, he is also being set up with a PICC line and started on IV antibiotics once again in order to eradicate the infection, hopefully develop a significant amount of granulation tissue, go ahead and proceed with a split thickness skin graft in the coming weeks to months. The patient understands all risks, complications and benefits of surgical intervention at this time including but not limited to infection, hematoma, seroma, possibility of delayed wound healing, nonwound healing and possible failure of surgical intervention. There have been no guarantees provided as to the postoperative course for this procedure. The patient understands these risks and wishes to proceed. No guarantees were provided as to the outcome. It is at this time we decided to proceed. DESCRIPTION OF PROCEDURE AND FINDINGS: The patient is brought into the OR and placed on the OR table in the supine position. At this time monitored anesthesia care was administered until the patient was sedated. The right lower extremity was prepped and draped in the typical sterile fashion and lowered onto to the surgical field. At this time, a 20 cc block of a 1:1 mixture of 1% lidocaine plain and 0.5% bupivacaine plain was injected to the right lower extremity just proximal to the wound where a V block type was performed under sterile technique. Following this, debridement of the wound took place to the level of bone at the anterior medial aspect of the tibia which was exposed and then a significant amount of granulation tissue and soft tissue was removed from the wound site specifically the calcifications at the margins of the wound which were aggressively debrided off of the wound bed. All granulation tissue appeared to be significantly healthy following debridement and with a healthy bleeding edge on all edges. A 15 blade was utilized to incise this edge. There was a bridge that was connected between a larger wound and a smaller wound. Following the debridement, measurements were taken of the wounds demonstrating 10.1 x 5.9 wound. From that standpoint, 1 liter of Bactisure was then utilized to flush the surgical site and followed by 3 liters of sterile saline. Following this the wound was dried and the Wound Vac was placed with windowing first applied with the sterile drape. The foam was laid within the footprint of the wound and then secured utilizing more drape. The arlet pad was then introduced gaining adequate compression and suction through the Wound Vac. The patient felt this was necessary as the patient has tried compression therapy for over 30 days and was educated on elevation and exercise techniques to relieve edema to the bilateral lower extremities. The patient was also educated to increase dietary intake which from the standpoint Januvia was provided. The patient is making progress however not at the rate we would prefer and given on previous pathologic history we have decided to be more aggressive with removal of the calcification and restart the IV antibiotics. Following the application of the Wound Vac, a dressing consisting of 4x4 gauze sponge surrounding the tube, Kerlix and Coban was applied to the right lower extremity with moderate compression avoiding the Wound Vac. The patient was then reversed from anesthesia and returned to the postoperative anesthesia care unit with vital signs stable and vascular status intact. The patient handled the anesthesia as well as the procedure without significant complication. Postoperative orders as indicated in the patient's discharge chart.
== END 2023-08-23 14:30 | disposition home or self-care (01) ==
LOC: SDC 07:58
PROVIDERS: ATTEND Podiatrist Foot & Ankle Surgery
DX: L02.611 Cutaneous abscess of right foot (principal); M79.604 Pain in right leg; M86.9 Osteomyelitis, unspecified; M25.871 Other specified joint disorders, right ankle and foot; I87.311 Chronic venous hypertension (idiopathic) with ulcer of right lower extremity; E11.621 Type 2 diabetes mellitus with foot ulcer
CPT/HCPCS: 28005; 36415; 36573; 71045; 80053; 82947; 85027; 87070; 87075; 94640; 97608; A6260; J0690; J0692; J1170; J1642; J2001; J2250; J2405; J2704; J3010; J7614; A9270-GY

== ENCOUNTER 2023-09-17 05:29 | Day surgery (SDC) | payer OTHER ==
[2023-09-17] MEDS ORDERED: CEFAZOLIN 2 GM-D5W BAG** 2 GM/50 ML ML IV SCH (06:30)
[2023-09-17] MEDS ORDERED: Lactated Ringers 1,000 ML IV SCH (06:30)
[2023-09-17] MEDS ORDERED: Xylocaine 1% Vial 30 ML PF IJ ONE (06:30)
[2023-09-17] MEDS ORDERED: Marcaine Mpf 0.5% Vial 30 Ml ONE (06:30)
[2023-09-17] MEDS ORDERED: SUBLIMAZE 100 MCG/2 ML ONE ×2 (07:02→08:28)
[2023-09-17] MEDS ORDERED: DIPRIVAN 200 MG/20 ML IV ONE ×2 (07:02→08:03)
[2023-09-17] MEDS ORDERED: Versed 2 MG/2 ML Injection ONE (07:03)
[2023-09-17 10:06] VITALS: TEMP 97.8
[2023-09-17 10:13] VITALS: O2SAT 99
[2023-09-17 10:15] VITALS: BP 128/76; PULSE 84; RESP 18
[2023-09-17] MEDS ORDERED: Sodium Chloride 0.9% 10 ML FLUSH Syringe PICC PRN (10:19)
--- NOTE | 2023-09-18 10:10 | OP ---
SURGERY DATE/TIME: 09/17/2023 0713 PREOPERATIVE DIAGNOSES: 1) Diabetic foot ulcer. 2) Venous insufficiency ulcer. 3) Soft tissue calcification. 4) Diabetes mellitus. 5) Uncontrolled diabetes. POSTOPERATIVE DIAGNOSES: 1) Diabetic foot ulcer. 2) Venous insufficiency ulcer. 3) Soft tissue calcification. 4) Diabetes mellitus. 5) Uncontrolled diabetes. PROCEDURES: 1) Wound debridement to the level of bone right leg. 2) Application of synthetic skin substitute Integra Bilayer. 3) Application of a Wound Vac to the right lower extremity. SURGEON: Odilon Cruz DPM. SALVAGER HELPER: None. ANESTHESIA: Monitored anesthesia care with local block. HEMOSTASIS: Pressure dressing. ESTIMATED BLOOD LOSS: Approximately 10 cc. MATERIALS: Wound Vac, 3-0 Nylon, Integra Bilayer 4x5. INJECTABLES: 10 cc of 1:1 mixture of 1% lidocaine plain and 0.5% bupivacaine plain injected in a V block-type fashion proximally to the wound. INDICATION FOR SURGERY: Mika is a very pleasant 62-year-old male very well known to my service for venous insufficiency ulcer/diabetic foot ulcer to the bilateral lower extremities. Since healing the left lower extremity, we are now working on the right lower extremity. We have done a good job of exposing the healthy granulation tissue. However, the patient is facing bankruptcy and would like to proceed in as accelerated fashion as possible instead of relying solely on the Wound Vac at this time to which I am amenable. At this time, the patient does have some areas of calcifications that are of concern and debridement is impossible in the clinic. I would like to proceed because the patient is infection-free at this point with a synthetic skin substitute over the wound and for better chance of apposition over the wound with the use of a Wound Vac. The patient understands all risks, complications and benefits of surgical intervention at this time including but not limited to infection, hematoma, seroma, possibility of delayed wound healing or nonwound healing and possibility of failure of surgical intervention. No guarantees were provided as to the outcome of surgical intervention at this time. There is the possibility of loss of life and loss of limb as a result of this patient's wound. Plenty of time was allowed for the patient to ask questions which were answered to his apparent satisfaction. It is at this time we decided to proceed. DESCRIPTION OF PROCEDURE AND FINDINGS: The patient is brought into the OR and placed on the OR table in the supine position. At this time, monitored anesthesia care was administered until the patient was sedated. The right lower extremity was prepped and draped in typical sterile fashion and lowered onto the surgical field. At this time, a proximal V block was performed utilizing 10 cc of a 1:1 mixture of 1% lidocaine plain and 0.5% bupivacaine plain. Following this, debridement of the wound took place utilizing a combination of rongeurs, curettes, 15 blade and pickups. This was achieved to develop a healthy bleeding surface on all surfaces of the wound to insure was prepared for take of the synthetic skin substitute. Following this, 3 liters of sterile saline were utilized to flush the surgical site this was dried and gloves were changed. Following this a 4 x 5 Integra was cut to size and fit within the deficit in order to prepare for the synthetic graft and healthy granular base for the split thickness skin graft. Following application and cutting to size, this was sutured down utilizing 3-0 Nylon. Following this, an oversized Adaptic was placed. Angling was performed around the wound and then a bolster dressing was applied utilizing the Wound Vac to allow for better take of the graft as well as apposition and drainage of fluid this is applied with 125 mm of Mercury of pressure and minimal loops were appreciated. Following this, a dressing consisting of gauze sponge, Kerlix and Coban was applied to the right lower extremity for compression. The patient was then reversed from anesthesia and returned to the postoperative anesthesia care unit with vital signs stable and vascular status intact. The patient handled the anesthesia as well as the procedure without significant complication. Postoperative orders as indicated in the patient's discharge chart.
== END 2023-09-17 10:10 | disposition home or self-care (01) ==
LOC: SDC 05:29
PROVIDERS: ATTEND Podiatrist Foot & Ankle Surgery
DX: E11.621 Type 2 diabetes mellitus with foot ulcer (principal); I87.2 Venous insufficiency (chronic) (peripheral); E11.65 Type 2 diabetes mellitus with hyperglycemia; D21.21 Benign neoplasm of connective and other soft tissue of right lower limb, including hip
CPT/HCPCS: 15275; 27607; 82947; 97605; J0690; J1642; J2001; J2250; J2704; J3010; Q4158

== ENCOUNTER 2023-10-01 06:01 | Day surgery (SDC) | payer OTHER ==
[2023-10-01 06:24] LABS: Hematocrit 26.5 % (42-50); Hemoglobin 8.5 g/dL (12.5-18.0); Mean Cell Volume 91.4 fL (78-100); Mean Corpuscular Hemoglobin 29.3 pg (26-32); Mean Corpuscular Hgb Concent. 32.1 g/dL (32-36); Mean Platelet Volume 11.7 fL (7.5-11.0); Platelet Count 71 x10^3/uL (150-450); Red Cell Distribution Width 14.8 % (11.5-14.0); White Blood Count 5.2 x10^3/uL (4.0-10.5)
[2023-10-01] MEDS: Lactated Ringers 1,000 ML IV SCH (06:24)
[2023-10-01] MEDS: CEFAZOLIN 2 GM-D5W BAG** 2 GM/50 ML ML IV SCH (06:24)
[2023-10-01] MEDS ORDERED: Xylocaine 1% Vial 30 ML PF IJ ONE (06:37)
[2023-10-01] MEDS ORDERED: Marcaine Mpf 0.5% Vial 30 Ml ONE (06:37)
[2023-10-01 06:59] LABS: ALBUMIN 2.9 g/dL (3.5-5.0); ANION GAP 11.1 MEQ/L (5-15); BILIRUBIN,TOTAL 1.2 mg/dL (0.2-1.3); Calcium 8.6 mg/dL (8.4-10.2); Creatinine 1 4.08 mg/dL (0.66-1.25); EST GLOMERULAR FILTRATION RATE 15.7 ML/MIN; Potassium 4.3 mmol/L (3.5-5.1); Total Protein 7.4 g/dL (6.3-8.2)
[2023-10-01 07:04] LABS: Slide Review YES
[2023-10-01] MEDS ORDERED: DIPRIVAN 200 MG/20 ML IV ONE ×2 (07:06→07:55)
[2023-10-01] MEDS ORDERED: Xylocaine-Mpf 2% 5 Ml Vial ONE (07:06)
[2023-10-01] MEDS ORDERED: SUBLIMAZE 100 MCG/2 ML ONE ×2 (07:08→08:30)
[2023-10-01] MEDS ORDERED: Versed 2 MG/2 ML Injection ONE (07:09)
[2023-10-01] MEDS ORDERED: PHENYLEPHRINE HCL ONE (07:38)
[2023-10-01 10:04] VITALS: RESP 18
[2023-10-01 10:09] VITALS: BP 116/74; PULSE 81; TEMP 97.3; O2SAT 97
--- NOTE | 2023-10-03 08:39 | OP ---
SURGERY DATE/TIME: 10/01/2023 0718 PREOPERATIVE DIAGNOSES: 1) Right leg ulcer. 2) Venous insufficiency ulcer. 3) Diabetic leg ulcer. 4) Soft tissue calcifications. 5) Recalcitrant infection. 6) Right leg pain. POSTOPERATIVE DIAGNOSES: 1) Right leg ulcer. 2) Venous insufficiency ulcer. 3) Diabetic leg ulcer. 4) Soft tissue calcifications. 5) Recalcitrant infection. 6) Right leg pain. PROCEDURE: Incision and drainage with debridement to level of bone and application of Wound Vac right lower extremity. SURGEON: Odilon Cruz DPM. VAN DRIVER: None. ANESTHESIA: Monitored anesthesia care with intraoperative local block at common peroneal nerve consisting of 20 cc of 1:1 mixture of 1% lidocaine plain and 0.5% bupivacaine plain. HEMOSTASIS: Pressure dressing. ESTIMATED BLOOD LOSS: Approximately 5 cc. MATERIALS: Medium sized negative-pressure Wound Vac therapy. INJECTABLES: 20 cc of 1:1 mixture of 1% lidocaine plain and 0.5% bupivacaine plain injected in common peroneal block-type fashion. INDICATION FOR SURGERY: Mika is a very pleasant 62-year-old male very well known to my service over the last several months for bilateral leg wounds. The left lower extremity he managed to heal out his wounds. However, he does have significant calcifications that extend pretty much from the tibial tuberosity to just above the ankle that has made healing his wound complicated. On previous pathologic reports, there have been indications of infection within the calcifications that have led to residual infections after our initial debridement. An attempt on graft was performed. Synthetic graft was performed approximately two weeks ago which did get infected likely as a result of residual soft tissue calcifications. These calcifications do go circumferentially around his leg and he has been working with infectious disease in order to improve his outcome in regards to getting rid of the infection in the soft tissue calcifications. A small component of his tibia is exposed. However, this is slowly granulating over and a significant amount of granulation tissue is present so we are experiencing some significant levels of success. However, the calcifications do keep tracking the bacteria and lead to repeat infections. At this time the patient understands all risks, complications and benefits of surgical intervention including but not limited to infection, hematoma, seroma, possibility of delayed wound healing, nonwound healing and possible need for surgical intervention at a later date. No guarantees have been provided as to the outcome of surgical intervention. This is a limb salvage case. There is also risk as a result of the use of anesthesia. The patient understands all of these risks and wishes to proceed. DESCRIPTION OF PROCEDURE AND FINDINGS: The patient is brought into the OR and placed on the OR table in the supine position. At this time monitored anesthesia care was administered until the patient was sedated. At this time, the right lower extremity was prepped and draped in the typical sterile fashion and lowered onto the surgical field. At this time, debridement took place of the wound utilizing rongeur, curettes and a 15 blade to incise the edges. Any calcifications that were identified were removed from the site utilizing a rongeur. The periphery of the wound was undermined for the calcifications by approximately 1 cm in every direction unless full closure of the wound edge was identified. At this time the tibia was debrided at the inferior lateral aspect of the wound just underneath some significant calcifications that were removed, some fibrotic tissue remained in the wound. However, 80% of the wound base was granular in nature. At this time, Bactisure as utilized to flush the surgical site and then 3 liters of sterile saline. Once again, the edge was incised for healthy bleeding with a 15 blade and then a negative-pressure Wound Vac therapy was applied to the patient's right lower extremity operating at 125 mm of Mercury. At this time a compression dressing was placed over the right lower extremity and the patient reversed from anesthesia and returned to the postoperative anesthesia care unit with vital signs stable and vascular status intact. The patient handled the anesthesia as well as the procedure without significant complication. Postoperative orders as indicated in the patient's discharge chart.
== END 2023-10-01 09:56 ==
LOC: SDC 06:01
PROVIDERS: ATTEND Podiatrist Foot & Ankle Surgery
DX: E11.622 Type 2 diabetes mellitus with other skin ulcer (principal); M79.604 Pain in right leg; M61.461 Other calcification of muscle, right lower leg; Z91.199 Patient's noncompliance with other medical treatment and regimen due to unspecified reason; L97.816 Non-pressure chronic ulcer of other part of right lower leg with bone involvement without evidence of necrosis
CPT/HCPCS: 27607; 36415; 80053; 82947; 85027; 93005; 97605; A6260; J0690; J2001; J2250; J2371; J2704; J3010

== ENCOUNTER 2023-10-01 09:55 | Emergency (ER) | payer OTHER ==
[2023-10-01 10:01] VITALS: TEMP 96.8
[2023-10-01 10:26] LABS: Absolute Neutrophil Ct (ANC) 3.59 x10^3/uL (1.4-6.9); BASOPHIL % 0.9 % (0.0-0.4); Basophil (Absolute #) 0.04 x10^3/uL (0-0.4); Eosinophil % 0.9 % (0.00-5.0); Eosinophil (Absolute #) 0.04 x10^3/uL (0-0.5); Hematocrit 25.3 % (42-50); IMMATURE GRAN # 0.01 x10^3u/L (0.00-0.03); IMMATURE GRAN % 0.2 % (0.00-0.4); Lymphocyte (Absolute #) 0.57 x10^3/uL (1.0-4.6); Lymphocytes % 12.9 % (24.0-44.0); Mean Corpuscular Hemoglobin 28.8 pg (26-32); Mean Corpuscular Hgb Concent. 31.6 g/dL (32-36); Monocyte (Absolute #) 0.18 x10^3/uL (0.0-1.3); Monocytes % 4.1 % (0.0-12.0); Platelet Count 64 x10^3/uL (150-450); Red Blood Count 2.78 x10^6/uL (4.1-5.6); Red Cell Distribution Width 14.7 % (11.5-14.0); White Blood Count 4.4 x10^3/uL (4.0-10.5)
[2023-10-01 10:29] LABS: ALBUMIN 2.8 g/dL (3.5-5.0); ANION GAP 11.2 MEQ/L (5-15); BILIRUBIN,TOTAL 1.1 mg/dL (0.2-1.3); Calcium 8.7 mg/dL (8.4-10.2); Creatinine 1 4.24 mg/dL (0.66-1.25); EST GLOMERULAR FILTRATION RATE 14.9 ML/MIN; Potassium 4.1 mmol/L (3.5-5.1); Total Protein 7.1 g/dL (6.3-8.2)
--- NOTE | 2023-10-01 10:36 | XRAY ---
Indication: Pain. Comparison: August 23, 2023 Portable chest better inflated again with chronic right hemidiaphragm elevation and adjacent subsegmental atelectasis/scarring. No focal infiltrate, consolidation, or large effusion. Heart not enlarged again with right Port-A-Cath. Bony thorax intact. Impression: Continued nonacute chest with chronic features.
[2023-10-01 10:57] LABS: Slide Review 1 YES
[2023-10-01] MEDS ORDERED: BABY ASPIRIN 81 MG CHEW ONE (11:25)
[2023-10-01] MEDS: BABY ASPIRIN 81 MG CHEW PO ONE (11:27)
--- NOTE | 2023-10-01 12:09 | ERPHSYRPT ---
- History of Present Illness Time Seen by Provider: 10/01/23 10:00 Historian: patient Exam Limitations: no limitations Patient Subjective Stated Complaint: pt here for substernal chest pain after having right leg debrided Triage Nursing Assessment: pt arrived per bed, alert,but sleepy at times, resp easy, skin w/d/p. has dressing with wound vac to right lower leg, foot warn, nailbeds pink Physician History: Patient is a 62-year-old male presents to our ED from postoperative care/recovery for evaluation of chest pain. Patient has history of diabetes. Patient had a right lower leg wound debridement performed today under MAC. After the procedure patient began to complain of chest pain. An EKG was obtained and brought to our ED. However I advised that patient come to our ED for complete evaluation. Patient complains of substernal chest pain radiating towards the left into his left arm. No associated nausea vomiting or diaphoresis. Symptoms are constant. Symptoms are moderate in intensity. No specific worsening or improving factors. Patient denies a history of chest pain. He reports he has got a history of a cardiac murmur which was declared benign by his manager transportation . at bedside. They voiced no other complaints or concerns at this time. Portions of this note were created with voice recognition technology. There may be grammatical, spelling, punctuation or sound alike errors Timing/Duration: today Activities at Onset: none Quality: aching Location: substernal Chest Pain Radiation: arm Severity of Pain-Max: moderate Severity of Pain-Current: mild Modifying Factors: Improves With: nothing Associated Symptoms: denies symptoms Prior Chest Pain/Cardiac Workup: no prior chest pain Nitro Today/Relief: no nitro taken today Aspirin Treatment Today: no aspirin today Allergies/Adverse Reactions: metoclopramide [From Reglan] Adverse Reaction (Intermediate, Verified 10/01/23 10:02) Nausea and Vomiting Home Medications: Insulin Glargine,Hum.rec.anlog [Basaglar Kwikpen U-100] 16 unit SQ BID 05/21/22 [History] Insulin Lispro [Humalog] 16 unit SQ TIDAC 05/21/22 [History] Cefepime HCl 1 gm [Maxipime 1 gm] 1 g IV DAILY 10/01/23 [History] Furosemide 40 mg [Lasix 40 MG] 40 mg PO DAILY 10/01/23 [History] L.acidoph,Paracasei, B.lactis [Probiotic] 1 each PO DAILY 10/01/23 [History] Hx Tetanus, Diphtheria Vaccination/Date Given: No Hx Influenza Vaccination/Date Given: No Hx Pneumococcal Vaccination/Date Given: No Immunizations Up to Date: Yes Travel Risk - International Travel Have you traveled outside of the country in past 3 weeks: No - Coronavirus Screening Are you exhibiting any of the following symptoms?: No - Vaccine Status Have you recieved a Covid-19 vaccination: No - Review of Systems Constitutional: No Symptoms, No Fever, No Chills Eyes: No Symptoms Ears, Nose, & Throat: No Symptoms Respiratory: No Symptoms, No Cough, No Dyspnea Cardiac: No Symptoms, No Chest Pain, No Edema, No Syncope Abdominal/Gastrointestinal: No Symptoms, No Abdominal Pain, No Nausea, No Vomiting, No Diarrhea Genitourinary Symptoms: No Symptoms, No Dysuria Musculoskeletal: No Symptoms, No Back Pain, No Neck Pain Skin: No Symptoms, No Rash Neurological: No Symptoms, No Dizziness, No Focal Weakness, No Sensory Changes Psychological: No Symptoms Endocrine: No Symptoms Hematologic/Lymphatic: No Symptoms Immunological/Allergic: No Symptoms All Other Systems: Reviewed and Negative - Past Medical History Pertinent Past Medical History: Yes Neurological History: No Pertinent History ENT History: No Pertinent History Cardiac History: Hypertension Respiratory History: No Pertinent History Endocrine Medical History: Diabetes Type II, Liver Disease Musculoskeletal History: Fractures GI Medical History: Cirrhosis, Hepatitis History: Renal Disease Psycho-Social History: No Pertinent History Male Reproductive Disorders: No Pertinent History Other Medical History: HX OF HEP C (TREATED AND "CURED"). STAGE 3 KIDNEY DISEASE. HX FALL WITH BACK "FRACTURE" BUT NO SURGERY. HX OF SURGERY FOR SCROTAL ABSCESS. - Past Surgical History Past Surgical History: Yes Neuro Surgical History: No Pertinent History Cardiac: No Pertinent History Respiratory: No Pertinent History Gastrointestinal: No Pertinent History Genitourinary: Kidney Surgery Musculoskeletal: No Pertinent History Male Surgical History: No Pertinent History Other Surgical History: liver biopsy, finger, scrotal abscess. multiple right leg, debredment of right leg - Social History Smoking Status: Former smoker Exposure to second hand smoke: No Drug Use: none Patient Lives Alone: No Significant Family History: no pertinent family hx - Nursing Vital Signs Nursing Vital Signs: Initial Vital Signs Temperature 96.8 F 10/01/23 09:59 Pulse Rate 87 10/01/23 09:59 Respiratory Rate 12 10/01/23 09:59 Blood Pressure 104/73 10/01/23 09:59 O2 Sat by Pulse Oximetry 99 10/01/23 09:59 Pain Scale Pain Intensity 5 - Physical Exam General Appearance: no apparent distress, alert Eye Exam: PERRL/EOMI, eyes nml inspection Ears, Nose, Throat Exam: normal ENT inspection, moist mucous membranes Neck Exam: normal inspection, non-tender, supple, full range of motion Respiratory Exam: normal breath sounds, lungs clear, No respiratory distress Cardiovascular Exam: regular rate/rhythm, normal heart sounds Gastrointestinal/Abdomen Exam: soft, No tenderness, No mass Back Exam: normal inspection, No CVA tenderness, No vertebral tenderness Extremity Exam: normal inspection, normal range of motion Neurologic Exam: alert, oriented x 3, cooperative, normal mood/affect, sensation nml, No motor deficits Skin Exam: normal color, warm, dry Lymphatic Exam: No adenopathy SpO2 Interpretation: normal SpO2: 100 O2 Delivery: Room Air - Course Nursing assessment & vital signs reviewed: Yes EKG Interpreted by Me: RATE - Radiology Exams Chest X-ray Interpretation: Teleradiologist Report (No acute findings) Ordered Tests: Active Orders 24 hr Category Date Time Status Assembly Machine Set Up Mechanic STAT Care 10/01/23 10:06 Completed IV Insertion STAT Care 10/01/23 10:05 Completed Pulse Oximetry (ED) STAT Care 10/01/23 10:05 Completed CHEST 1 VIEW (PORTABLE) Stat Exams 10/01/23 10:05 Completed CBC Stat Lab 10/01/23 12:55 Completed CBC W DIFF Stat Lab 10/01/23 10:10 Completed CMP Stat Lab 10/01/23 10:10 Completed PROTIME WITH INR Stat Lab 10/01/23 12:55 Completed PTT Stat Lab 10/01/23 12:55 Completed TROPONIN Q4H Lab 10/01/23 10:10 Completed Medication Summary Discontinued Medications Generic Name Dose Route Start Last Admin Trade Name Freq PRN Reason Stop Dose Admin Aspirin 324 mg 10/01/23 11:22 10/01/23 11:27 Aspirin 81 Mg Tab.Chew PO 10/01/23 11:23 324 mg STAT ONE Administration Aspirin Confirm 10/01/23 11:25 Aspirin 81 Mg Tab.Chew Administered 10/01/23 11:26 Dose 324 mg .ROUTE .STK-MED ONE Heparin Sodium (Beef Lung) 5,000 unit 10/01/23 12:35 10/01/23 12:51 Heparin 5000 Units/0.5 Ml 5,000 Unit/0.5 Ml Syr IV 10/01/23 12:36 5,000 unit STAT STA Administration Heparin Sodium (Beef Lung) Confirm 10/01/23 12:37 Heparin 5000 Units/0.5 Ml 5,000 Unit/0.5 Ml Syr Administered 10/01/23 12:38 Dose 5,000 unit .ROUTE .STK-MED ONE Nitroglycerin/Dextrose 250 mls @ 1.5 mls/hr 10/01/23 12:00 10/01/23 12:51 Ntg 0.2mg/Ml In D5w Glass IV 10/31/23 11:59 5 mcg/min .Q24H PRN 1.5 mls/hr CHEST PAIN Administration Protocol 5 MCG/MIN Heparin Sodium/Dextrose 25,000 units in 250 mls @ 12.247 mls/hr 10/01/23 13:00 10/01/23 12:50 Heparin 25,000 Units/D5w: Use Order Set Mee IV 10/31/23 12:59 12 units/kg/hr .[id number] BRITTANY 12.247 mls/hr Administration Protocol 12 UNITS/KG/HR Heparin Sodium/Dextrose Confirm 10/01/23 12:46 Heparin 25,000 Units/D5w: Use Order Set Mee Administered 10/01/23 12:47 Dose 25,000 units in 250 mls @ ud IV .STK-MED ONE Lab/Rad Data: Laboratory Result Diagrams 10/01/23 12:55 10/01/23 10:10 Laboratory Results 10/01/23 10/01/23 10/01/23 Range/Units 12:55 12:55 10:10 WBC 5.8 (4.0-10.5) x10^3/uL RBC 2.85 L (4.1-5.6) x10^6/uL Hgb 8.4 L (12.5-18.0) g/dL Hct 26.9 L (42-50) % MCV 94.4 (78-100) fL MCH 29.5 (26-32) pg MCHC 31.2 L (32-36) g/dL RDW 15.0 H (11.5-14.0) % Plt Count 60 L (150-450) x10^3/uL MPV 11.6 H (7.5-11.0) fL Gran % (36.0-66.0) % Immature Gran % (Auto) (0.00-0.4) % Nucleat RBC Rel Count (0.00-0.1) % Eos # (Auto) (0-0.5) x10^3/uL Immature Gran # (Auto) (0.00-0.03) x10^3u/L Absolute Lymphs (auto) (1.0-4.6) x10^3/uL Absolute Monos (auto) (0.0-1.3) x10^3/uL Absolute Nucleated RBC (0.00-0.01) x10^3u/L Lymphocytes % (24.0-44.0) % Monocytes % (0.0-12.0) % Eosinophils % (0.00-5.0) % Basophils % (0.0-0.4) % Absolute Granulocytes (1.4-6.9) x10^3/uL Basophils # (0-0.4) x10^3/uL PT 13.5 H (9.4-12.5) SECONDS INR 1.26 (0.8-3.0) APTT > 139.0 H* (25.1-36.5) SECONDS Sodium (137-145) mmol/L Potassium (3.5-5.1) mmol/L Chloride (98-107) mmol/L Carbon Dioxide (22-30) mmol/L Anion Gap (5-15) MEQ/L BUN (9-20) mg/dL Creatinine (0.66-1.25) mg/dL Estimated GFR ML/MIN Glucose (74-106) mg/dL Calcium (8.4-10.2) mg/dL Total Bilirubin (0.2-1.3) mg/dL AST (17-59) U/L ALT (0-50) U/L Alkaline Phosphatase (38-126) U/L Troponin I 0.037 H* (0.000-0.034) ng/mL Serum Total Protein (6.3-8.2) g/dL Albumin (3.5-5.0) g/dL Slides for Path Review 10/01/23 10/01/23 Range/Units 10:10 10:10 WBC 4.4 (4.0-10.5) x10^3/uL RBC 2.78 L (4.1-5.6) x10^6/uL Hgb 8.0 L (12.5-18.0) g/dL Hct 25.3 L (42-50) % MCV 91.0 (78-100) fL MCH 28.8 (26-32) pg MCHC 31.6 L (32-36) g/dL RDW 14.7 H (11.5-14.0) % Plt Count 64 L (150-450) x10^3/uL MPV 12.0 H (7.5-11.0) fL Gran % 81.0 H (36.0-66.0) % Immature Gran % (Auto) 0.2 (0.00-0.4) % Nucleat RBC Rel Count 0.0 (0.00-0.1) % Eos # (Auto) 0.04 (0-0.5) x10^3/uL Immature Gran # (Auto) 0.01 (0.00-0.03) x10^3u/L Absolute Lymphs (auto) 0.57 L (1.0-4.6) x10^3/uL Absolute Monos (auto) 0.18 (0.0-1.3) x10^3/uL Absolute Nucleated RBC 0.00 (0.00-0.01) x10^3u/L Lymphocytes % 12.9 L (24.0-44.0) % Monocytes % 4.1 (0.0-12.0) % Eosinophils % 0.9 (0.00-5.0) % Basophils % 0.9 (0.0-0.4) % Absolute Granulocytes 3.59 (1.4-6.9) x10^3/uL Basophils # 0.04 (0-0.4) x10^3/uL PT (9.4-12.5) SECONDS INR (0.8-3.0) APTT (25.1-36.5) SECONDS Sodium 135 L (137-145) mmol/L Potassium 4.1 (3.5-5.1) mmol/L Chloride 104 (98-107) mmol/L Carbon Dioxide 24 (22-30) mmol/L Anion Gap 11.2 (5-15) MEQ/L BUN 56 H (9-20) mg/dL Creatinine 4.24 H (0.66-1.25) mg/dL Estimated GFR 14.9 ML/MIN Glucose 194 H (74-106) mg/dL Calcium 8.7 (8.4-10.2) mg/dL Total Bilirubin 1.10 (0.2-1.3) mg/dL AST 75 H (17-59) U/L ALT 32 (0-50) U/L Alkaline Phosphatase 301 H (38-126) U/L Troponin I (0.000-0.034) ng/mL Serum Total Protein 7.1 (6.3-8.2) g/dL Albumin 2.8 L (3.5-5.0) g/dL Slides for Path Review YES - Progress Progress: improved Air Movement: good Progress Note: Case discussed with Dr. Serrano, manager transportation and Dr. Ventura. They accept transfer to [facility] at 12:24 PM Plan of care discussed with patient. He agrees to transfer to [place] for further evaluation and treatment. Portions of this note were created with voice recognition technology. There may be grammatical, spelling, punctuation or sound alike errors Patient is a 62-year-old male presents to our ED from recovery for evaluation of chest pain with radiation to the left arm. No other associated symptomology. Patient has a history of diabetes and was undergoing a wound debridement to his right lower extremity under MAC anesthesia. Workup reveals elevated troponin 0.037. Patient has chronic renal sufficiency however today's creatinine suggested acute kidney injury. Aspirin administered. Patient started on a nitro drip. Heparin drip will be initiated as well. WBC is 4.4. Hemoglobin is 8. However this appears to be at his baseline. Platelet is 64. BUN 56. Creatinine 4.24. Portions of this note were created with voice recognition technology. There may be grammatical, spelling, punctuation or sound alike errors Complexity problem addressed is high, severe exacerbation with threat to bodily function COPA (number of complexity of problem addressed) Minimal, Straight forward, one self limited or minor problem Low. Acute uncomplicated stable +/- admission, Any acute or chronic illness, 2 or more self-limited or minor problems. Moderate. Acute, complicated or with systemic illness. Chronic illness with exacerbation, New diagnosis with uncertain prognosis. 2 or more chronic stable illnesses. High. Any severe exacerbation or threat to bodily function, Any treatment side effects Critical care time is 2.5 hours. Immediate action required to prevent further deterioration. Complexity of data reviewed and analyzed is extensive. Test ordered test reviewed. Results analyzed and correlated clinically with history and physical examination. Management discussed with manager transportation who accepts transfer to [facility] Risk of complication and or risk of morbidity/mortality of patient management is high. Patient requires hospitalization/transfer to higher level of care Vital stable. Time spent to transfer patient is approximately 30 minutes. Plan of care established for shared decision making. No social determinants of health present impede follow-up. Portions of this note were created with voice recognition technology. There may be grammatical, spelling, punctuation or sound alike errors 10/01/23 12:26 Blood Culture(s) Obtained: No Antibiotics given: No Discussed with : Other Will see patient in: other Counseled pt/family regarding: lab results, diagnosis - Departure Departure Disposition: Home Clinical Impression: ACS (acute coronary syndrome), NSTEMI (non-ST elevated myocardial infarction), Thrombocytopathia, CRI (chronic renal insufficiency), CHLOE (acute kidney injury) Condition: Stable Critical Care Time: Yes Critical Care Time(excluding separately billable procedures): Critical 135-164 mins Referrals: IAN CHRISTENSEN [Primary Care Provider] - Follow up/PCP as directed
[2023-10-01] MEDS ORDERED: HEPARIN 5000 UNITS/0.5 ML (HIGH RISK MED) ONE (12:37)
[2023-10-01] MEDS ORDERED: Heparin 25,000 units/D5W: USE ORDER SET PROTO 25,000 UNITS/250 ML BAG IV ONE (12:46)
[2023-10-01] MEDS: Heparin 25,000 units/D5W: USE ORDER SET PROTO 25,000 UNITS/250 ML BAG IV SCH (12:50)
[2023-10-01] MEDS: HEPARIN 5000 UNITS/0.5 ML (HIGH RISK MED) IV STA (12:51)
[2023-10-01] MEDS: Ntg 0.2MG/Ml in D5W GLASS*** 250 ML IV PRN (12:51)
[2023-10-01 13:01] LABS: Hematocrit 26.9 % (42-50); Hemoglobin 8.4 g/dL (12.5-18.0); Mean Cell Volume 94.4 fL (78-100); Mean Corpuscular Hemoglobin 29.5 pg (26-32); Mean Corpuscular Hgb Concent. 31.2 g/dL (32-36); Mean Platelet Volume 11.6 fL (7.5-11.0); Platelet Count 60 x10^3/uL (150-450); Red Blood Count 2.85 x10^6/uL (4.1-5.6); White Blood Count 5.8 x10^3/uL (4.0-10.5)
[2023-10-01 13:17] VITALS: BP 106/66; PULSE 93; RESP 23
[2023-10-01 13:32] LABS: INR 1.26 (0.8-3.0); PROTIME 13.5 SECONDS (9.4-12.5)
[2023-10-01 13:48] LABS: PTT > 139.0 SECONDS (25.1-36.5)
[2023-10-01 14:02] VITALS: O2SAT 100
[2023-10-01 14:32] LABS: Slide Review YES
== END 2023-10-01 13:33 | disposition short-term general hospital (02) ==
LOC: ED 09:55
DX: I24.9 Acute ischemic heart disease, unspecified (principal); I21.4 Non-ST elevation (NSTEMI) myocardial infarction; D69.6 Thrombocytopenia, unspecified; N17.9 Acute kidney failure, unspecified; I12.9 Hypertensive chronic kidney disease with stage 1 through stage 4 chronic kidney disease, or unspecified chronic kidney disease; E11.22 Type 2 diabetes mellitus with diabetic chronic kidney disease; N18.30 Chronic kidney disease, stage 3 unspecified; Z79.4 Long term (current) use of insulin; Z79.899 Other long term (current) drug therapy; Z28.310 Unvaccinated for COVID-19
CPT/HCPCS: 36000; 36415; 71045; 80053; 84484; 85025; 85027; 85610; 85730; 93005; 93041; 94760; 96365; 96374; 99285; 99291; 99292; J1644; A9270-GY

== ENCOUNTER 2023-10-29 11:21 | Day surgery (SDC) | payer OTHER ==
[2023-10-29] MEDS ORDERED: Sodium Chloride 0.9% 500 ML 500 ML IV ONE (11:43)
[2023-10-29] MEDS: Sodium Chloride 0.9% 500 ML 500 ML IV SCH (11:52)
[2023-10-29 12:11] LABS: Absolute Neutrophil Ct (ANC) 2.64 x10^3/uL (1.4-6.9); BASOPHIL % 0.8 % (0.0-0.4); Basophil (Absolute #) 0.03 x10^3/uL (0-0.4); Eosinophil % 0.5 % (0.00-5.0); Eosinophil (Absolute #) 0.02 x10^3/uL (0-0.5); Hematocrit 30.4 % (42-50); Hemoglobin 9.7 g/dL (12.5-18.0); IMMATURE GRAN # 0.01 x10^3u/L (0.00-0.03); IMMATURE GRAN % 0.3 % (0.00-0.4); Lymphocyte (Absolute #) 0.72 x10^3/uL (1.0-4.6); Lymphocytes % 18.8 % (24.0-44.0); Mean Cell Volume 93.8 fL (78-100); Mean Corpuscular Hemoglobin 29.9 pg (26-32); Mean Corpuscular Hgb Concent. 31.9 g/dL (32-36); Mean Platelet Volume 11.4 fL (7.5-11.0); Monocyte (Absolute #) 0.42 x10^3/uL (0.0-1.3); Monocytes % 10.9 % (0.0-12.0); Neutrophil % 68.7 % (36.0-66.0); Platelet Count 69 x10^3/uL (150-450); Red Blood Count 3.24 x10^6/uL (4.1-5.6); Red Cell Distribution Width 14.4 % (11.5-14.0); White Blood Count 3.8 x10^3/uL (4.0-10.5)
[2023-10-29 12:24] LABS: ANION GAP 9.6 MEQ/L (5-15); BILIRUBIN,TOTAL 1.6 mg/dL (0.2-1.3); Creatinine 1 3.8 mg/dL (0.66-1.25); EST GLOMERULAR FILTRATION RATE 16.9 ML/MIN; Potassium 3.1 mmol/L (3.5-5.1); Total Protein 7.1 g/dL (6.3-8.2)
[2023-10-29] MEDS ORDERED: MINERAL OIL LIGHT 10 ML FOR SURGERY ONE ×2 (12:47→13:40)
[2023-10-29] MEDS ORDERED: Xylocaine 1% Vial 30 ML PF IJ ONE (12:47)
[2023-10-29] MEDS ORDERED: Marcaine Mpf 0.5% Vial 30 Ml ONE (12:47)
[2023-10-29] MEDS ORDERED: Thrombin-JMI 5000 UNITS TP ONE (12:47)
[2023-10-29] MEDS ORDERED: SUBLIMAZE 100 MCG/2 ML ONE ×2 (12:48→15:03)
[2023-10-29] MEDS ORDERED: Versed 2 MG/2 ML Injection ONE (12:48)
[2023-10-29] MEDS ORDERED: Xylocaine-Mpf 2% 5 Ml Vial ONE (12:48)
[2023-10-29] MEDS ORDERED: DIPRIVAN 200 MG/20 ML IV ONE ×2 (12:48→13:41)
[2023-10-29] MEDS ORDERED: XYLOCAINE 1%/Epi 1:100000 MDV 20 ML ONE (12:59)
[2023-10-29] MEDS ORDERED: Ephedrine Sulfate 50 MG/ML ONE (13:49)
[2023-10-29 13:57] LABS: Slide Review 1 YES
[2023-10-29 15:37] VITALS: RESP 18
[2023-10-29 16:11] VITALS: BP 105/66; PULSE 86; TEMP 97.7; O2SAT 100
--- NOTE | 2023-10-31 08:12 | OP ---
SURGERY DATE/TIME: 10/29/2023 1248 PREOPERATIVE DIAGNOSES: 1) Venous insufficiency ulcer. 2) End stage renal disease. 3) Diabetes mellitus uncontrolled. 4) Right leg pain. 5) Localized edema. POSTOPERATIVE DIAGNOSES: 1) Venous insufficiency ulcer. 2) End stage renal disease. 3) Diabetes mellitus uncontrolled. 4) Right leg pain. 5) Localized edema. PROCEDURE: Debridement of wound 10.5 x 4.5 preoperatively with full thickness skin graft right thigh to right leg. SURGEON: Odilon Cruz DPM. [employer] SYSTEMS ADMINISTRATOR: None. ANESTHESIA: Monitored anesthesia care with multiple blocks. See injectables for details. HEMOSTASIS: Pressure dressing. ESTIMATED BLOOD LOSS: Approximately 10 cc. MATERIALS: Skin stapler, 1-0 Vicryl, 2-0 Vicryl, 3-0 Nylon. INJECTABLES: 20 cc of 1% lidocaine plain with epinephrine for the thigh and 20 cc of 1:1 mixture of 1% lidocaine plain and 0.5% bupivacaine plain injected for a V block-type fashion to the right lower extremity proximal to the surgical wound. INDICATION FOR SURGERY: Mika Tillmanhaim has been working with us since June 2023 in order to get a significantly large wound healed to the right lower extremity. The patient has made significant. The patient has made significant progress over the last several weeks and the wound is completely granular in origin. At this time, the patient is deemed an adequate candidate for a split thickness skin graft. At this time, the patient understands all risks, complications and benefits of surgical intervention including but not limited to infection, hematoma, seroma, possibility of delayed wound healing, nonwound healing and possible failure of surgical intervention. The patient understands all of this and wishes to proceed at this time. No guarantees were provided as to the outcome. It is at this we have decided to proceed. DESCRIPTION OF PROCEDURE AND FINDINGS: The patient is brought into the OR and placed on the OR table in the supine position. At this time, monitored anesthesia care was administered. A 20 cc block to the right thigh was administered proximal to the harvest site and then a block was performed at the common peroneal nerve in a V block-type fashion to the right lower extremity just proximal to the wound. Following this, debridement of the wound took place utilizing a combination of rongeur, curette and a 15 blade. Postoperative measurements were measured to be 10.7 x 4.9 postoperatively. Following debridement, the proximal edge was sutured down to get good adherence of the wound to the base this required cleaning out calcifications from underneath the edge of this wound. Following this, dermatome was utilized with a 2 inch blade set on 0.16 of an inch to harvest graft this was utilized with sterile saline, rubbing alcohol to cleanse the leg and dry it thoroughly and then mineral oil which was spread out. Tension was held while harvesting the graft. Two passes of the dermatome were necessary to coapt the entire wound this was run through a 1 to 1.5 mesher and graft was adequate to cover the entirety of the wound. This was stapled and sutured down depending on its location and fragility of the skin. Following this, a dressing consisting of Adaptic, Aquacel, bolster dressing and multilayer compression dressing were applied to the right lower extremity. The patient was then reversed from anesthesia and returned to the postoperative anesthesia care unit with vital signs stable and vascular status intact. The patient handled the anesthesia as well as the procedure without significant complication. Postoperative orders as indicated in the patient's discharge chart.
== END 2023-10-29 16:15 | disposition home or self-care (01) ==
LOC: SDC 11:21
PROVIDERS: ATTEND Podiatrist Foot & Ankle Surgery
DX: I87.311 Chronic venous hypertension (idiopathic) with ulcer of right lower extremity (principal); N17.9 Acute kidney failure, unspecified; I12.0 Hypertensive chronic kidney disease with stage 5 chronic kidney disease or end stage renal disease; E11.22 Type 2 diabetes mellitus with diabetic chronic kidney disease; N18.6 End stage renal disease; M79.604 Pain in right leg; R60.0 Localized edema
CPT/HCPCS: 11042; 11045; 15100; 36415; 80053; 82947; 85025; 93005; J2001; J2250; J2704; J3010; A9270-GY